=== PATIENT | male | born 1950 | race Caucasian/White ===

== ENCOUNTER 2016-04-26 16:02 | Inpatient (IN) ==
[2016-04-26] MEDS ORDERED: methylPREDNISolone 125 MG/2 ML VIAL IVP ONE (17:55)
[2016-04-26] MEDS: Ipratropium/Albuterol Neb 3 ML IH SCH ×3 (18:05→23:44)
[2016-04-26] MEDS ORDERED: Vancomycin 1,000 MG in D5% in Water 250 ML IVPB ONE (18:14)
[2016-04-26] MEDS ORDERED: Ondansetron 4 MG/2 ML VIAL IVP PRN (18:17)
[2016-04-26] MEDS ORDERED: Naloxone 0.4 MG/ML INJ IVP PRN (18:17)
[2016-04-26] MEDS ORDERED: *HR* LORazepam 0.5 MG TABLET PO PRN (18:19)
[2016-04-26] MEDS ORDERED: Ipratropium/Albuterol Neb 3 ML IH PRN (18:22)
--- NOTE | 2016-04-26 19:04 | Internal Med History&Physical ---
Date of Encounter: 04/26/16 Time of Encounter: 18:00 Assessment and Plan (1) Acute respiratory failure with hypercapnia Current visit: Yes Status: Acute History of stage IV COPD and CHF -Likely secondary to COPD exacerbation due to underlying HCAP -Started IV steroids and bronchodilators -CXR consistent with pulmonary edema/infiltrates, however no clinical signs of acute CHF exacerbation -continue bipap support -Last ABG prior to transfer: 7.39/52.3/92/31.7/97 -Repeat ABG as needed -Continue to monitor O2 sat, goal O2 sat:89-92% -consider pulmonary consultation if patient does not improve (2) Acute exacerbation of chronic obstructive pulmonary disease (COPD) Current visit: Yes Status: Acute -Likely secondary to underlying HCAP -continue IV steroids and bronchodilators -monitor O2 sat -Bipap as needed -O2 supplementation as needed -ABG as needed -Will repeat CXR -GI ppx due to high dose steroid therapy (3) HCAP (healthcare-associated pneumonia) Current visit: Yes Status: Acute -Given recent hospitalization, will treat as HCAP -f/u blood cultures -started Vancomycin and Zosyn -de-escalate therapy once patient clinically improves and as per blood culture reports -continue to monitor WBC (last WBC at the NH: 12.6 down from 21.0 on 04/25/16) -Tylenol 650mg PO q6h PRN fever (4) CHF (congestive heart failure) Current visit: Yes Status: Chronic Does not clinically appear to be in CHF Continue diuretic therapy as per home medications continue home medications closely monitor for signs of volume overload last 2D echo done in feb 2016: LVEF 60% with severely dilated right ventricle with moderately severe right ventricular hypokinesis Qualifiers: Congestive heart failure type: diastolic Congestive heart failure chronicity: chronic Qualified Code(s): I50.32 - Chronic diastolic (congestive ) heart failure (5) Hypertension Current visit: Yes Status: Chronic BP within acceptable range Will continue to monitor Hold Metoprolol at this time due to active wheezing, will start Hydralazine prn SBP>150 Qualifiers: Hypertension type: essential hypertension Qualified Code(s): I10 - Essential (primary) hypertension (6) Elevated troponin Current visit: Yes Status: Chronic Unlikely ACS and likely type II GA Will monitor TNI closely Patient has history of positive troponins continue home medications for CAD (7) CAD (coronary artery disease) Current visit: Yes Status: Chronic No signs of angina present at this time Continue home medications Qualifiers: Coronary Disease-Associated Artery/Lesion type: unspecified vessel or lesion type [place] vs. transplanted heart: [place] heart Associated angina: without angina Qualified Code(s): I25.10 - Atherosclerotic heart disease of [place] coronary artery without angina pectoris (8) DVT prophylaxis Current visit: Yes Status: Acute Lovenox SQ (9) Hypothyroidism Current visit: Yes Status: Chronic Continue home medications Qualifiers: Hypothyroidism type: unspecified Qualified Code(s): E03.9 - Hypothyroidism , unspecified Internal Medicine - H&P: HPI Chief complaint: transfer from NH for respiratory failure Admitted From: Intrahospital Transfer Plans for Post Hospital Care: Transfer [facility] History of present illness: Mr. Reeder is a 66 year old male with PMH of stage IV COPD, ASCVD with CHF, CAD s/p NSTEMI (one month ago) and stent placement, HTN, Richardson's esophagus, GERD, CVA who was transferred to the ER from NH for management of acute respiratory failure. Patient was noted to be in severe respiratory distress due to which he was initially taken to the [facility] earlier this morning. Patient was noted to have mild pulmonary edema and was treated with bipap support and IV Lasix. Patient was also noted to have elevated troponins with no new EKG changes and no chest pain. Patient does have a history of NSTEMI one month ago. During my evaluation , patient is saturating well on bipap however has expiratory wheezing with no air entry bilaterally. His last ABG from the NH showed PCO2: 72.7. He reports of having fevers, cough, and chills for the last few days. He gets short of breath with minimal conversation due to which majority of his information was obtained from the records. He denies any headache, chest pain, abd pain, n/v, fever, or chills at this time. He does complain of cough. Unable to get in touch with the POA (with Vijaya Reeder) however patient wishes to be full code. Of note, palliative care was consulted during patient's last hospitalization due to the severity of his lung disease. At that time patient did not wish to pursue hospice or palliative care. Social hx: Former smoker (quit May 2015) Past Med Surg Social Fam HX - Past Medical History Medical history: COPD, coronary artery disease, CVA, myocardial infarction Psychiatric history: no psych history - Past Surgical History Surgical History: angioplasty/stent, other - Social History Smoking Status: Former smoker Smokeless Tobacco Status: No Alcohol use: none Drug use: none - Family History Father Adopted: No Family Member Ethnicity: Non- Living Status: Hx Family Cardiac Disorders: Yes Hx Family Respiratory Disorders: Yes Hx Family Cancer: Yes Internal Medicine - H&P: Meds Aspirin 81 mg PO DAILY 12/12/14 [History] Clopidogrel [Plavix] 75 mg PO DAILY 12/12/14 [History] Cyanocobalamin (B-12) [Vitamin B12] 1,000 mcg PO DAILY #30 tablet 03/14/16 [Rx] Folic Acid 1 mg PO DAILY #30 tablet 03/14/16 [Rx] Levothyroxine [Synthroid] 50 mcg PO 0630 30 Days 03/14/16 [Rx] Acetaminophen [Tylenol] 650 mg PO Q6HR PRN 04/26/16 [History] Albuterol Sulfate [Albuterol Inhaler] 1 puff Q4HR PRN 04/26/16 [History] Ampicillin Sodium/Sulbactam Na [Ampicillin-Sulbactam 1.5 gm Vl] 1.5 gm IV Q6HR 04/26/16 [History] Chlorhexidine Gluconate [Peridex] 15 ml MM ACHS 04/26/16 [History] Enoxaparin [Lovenox] 40 mg SQ DAILY 04/26/16 [History] Famotidine [Pepcid] 20 mg PO BID 04/26/16 [History] Fluticasone Propionate Nasal [Flonase] 50 mcg NS BID 04/26/16 [History] Furosemide [Lasix] 20 mg PO DAILY 04/26/16 [History] Ipratropium [place] 15 ml NS BID 04/26/16 [History] Ipratropium Neb [Atrovent Neb] 0.5 mg IH Q4HR 04/26/16 [History] Isosorbide MONOnitrate [Isosorbide Mononitrate] 60 mg PO DAILY 04/26/16 [History ] LORazepam [Ativan] 0.5 mg PO BID 04/26/16 [History] LORazepam [Ativan] 0.5 mg PO HS PRN 04/26/16 [History] Levalbuterol Neb [Xopenex Neb] 1.25 mg IH Q4HR 04/26/16 [History] Lisinopril 2.5 mg PO DAILY 04/26/16 [History] Loratadine [Allergy Relief] 10 mg PO DAILY 04/26/16 [History] Metoprolol Succinate 50 mg PO DAILY 04/26/16 [History] Allergies Tetracycline Allergy (Verified 03/10/16 06:33) Hives codeine Adverse Reaction (Verified 03/10/16 06:33) Headache All Systems PM: A 10-system review of systems was performed and is negative for pertinent findings except as documented above in the HPI. - Constitutional Constitutional: as per HPI, chills, fever(s) - Constitutional Vitals: Temp Pulse Resp BP Pulse Ox 97.6 F 131 29 133/65 96 04/26/16 17:13 04/26/16 17:30 04/26/16 17:21 04/26/16 17:21 04/26/16 17:21 General appearance: Present: mild distress (respiratory distress), A&O X 3, underweight, answers questions appropriately - Head Head exam: Present: atraumatic, normocephalic - Eye Eye exam: Present: normal appearance, conjuntiva pink, sclera anicteric - Respiratory Respiratory exam: Present: accessory muscle use, wheezes (bilateral expiratory wheezing, decreased breath sounds diffusely ) - Cardiovascular Cardiovascular exam: Present: +S1, +S2, tachycardia. Absent: JVD - GI/Abdominal GI/Abdominal exam: Present: normal bowel sounds, soft. Absent: distended, tenderness - Extremities Exam Extremities exam: Present: warm, radial pulses palpable and symetrical. Absent : calf tenderness, pedal edema, tenderness - Neurological Exam Neurological exam: Present: alert, oriented X3 - Psychiatric Psychiatric exam: Present: normal affect, normal mood
[2016-04-26 19:29] LABS: Basophils % 0.2 %; Hematocrit 30.1 % (37.5-50.1); Hemoglobin 8.9 g/dL (12.9-16.9); Immature Granulocytes % 0.5 % (0-4); Immature Platelets 3.3 % (1.1-6.1); Lymphocytes # 0.2 K/mcL (0.6-4.6); Lymphocytes % 1.8 %; Mean Corpuscular HGB Conc 29.6 g/dL (31.6-35.5); Mean Corpuscular Hemoglobin 25.5 pg (28.0-33.3); Mean Corpuscular Volume 86.2 fL (83.0-100.0); Mean Platelet Volume 9.3 fL (9.4-12.4); Monocytes # 1.3 K/mcL (0.0-1.3); Monocytes % 9.8 %; Platelet Count 359 K/mcL (140-400); Red Blood Count 3.49 M/mcL (4.19-5.50); Red Cell Distribution Width 18.2 % (11.5-14.5); Segmented Neutrophils % 87.7 %
[2016-04-26 19:37] LABS: Neutrophils # 11.3 K/mcL (1.6-8.9)
[2016-04-26 19:39] LABS: Alanine Aminotransferase 21 Units/L (0-55); Albumin 2.7 g/dL (3.5-5.0); Albumin/Globulin Ratio 0.6 (1.1-2.2); Alkaline Phosphatase 77 Units/L (38-126); Aspartate Amino Transferase 21 Units/L (5-34); BUN/Creatinine Ratio 39 (6-26); Bilirubin,Total 0.3 mg/dL (0.2-1.2); Blood Urea Nitrogen 35 mg/dL (8-26); Calcium 10.6 mg/dL (8.6-10.8); Carbon Dioxide 25 mEq/L (19-29); Chloride 97 mEq/L (98-109); Globulin 4.9 g/dL (2.4-3.5); Glucose 111 mg/dL (70-99); Osmolality,Calculated 289 (280-300); Phosphorous 4.5 mg/dL (2.3-4.7); Potassium 5.3 mEq/L (3.5-4.5); Sodium 135 mEq/L (136-145); Total Protein 7.6 g/dL (6.0-8.3); eGFR For African Americans > 60 (> 60); eGFR For Non-African Americans > 60 (> 60)
[2016-04-26 19:56] LABS: Hypochromasia Present (Not Present); Platelet Estimate Normal (Normal)
[2016-04-26] MEDS ORDERED: Vancomycin 1,000 MG in D5% in Water 250 ML IVPB SCH (20:00)
[2016-04-26] MEDS: *HR* LORazepam 0.5 MG TABLET PO SCH (20:40)
[2016-04-26] MEDS: Chlorhexidine Rinse 15 ML MOUTHWASH MM SCH (20:40)
[2016-04-26] MEDS: Piperacillin/Tazobactam 3.375 GM in D5% in Water (Mini-Bag+) 100 ML IVPB SCH ×2 (20:40→22:45)
[2016-04-26] MEDS: Fluticasone Propionate Nasal 50 MCG/SPRAY BOTTLE NS SCH (20:41)
[2016-04-26 21:03] LABS: ABG HCO3 35.6 mEQ/L (21-27); ABG Oxygen Saturation 98 % (95-98); ABG PCO2 66 mmHg (35-45); ABG PH 7.34 pH Units (7.32-7.45); ABG PO2 112 mmHg (85-104); ABG TCO2 37.6 mEq/L (20-26)
[2016-04-26 21:06] LABS: Blood Gas FiO2 35 %
[2016-04-27] MEDS: methylPREDNISolone 125 MG/2 ML VIAL IVP SCH ×3 (04:15→16:55)
[2016-04-27] MEDS: Piperacillin/Tazobactam 3.375 GM in D5% in Water (Mini-Bag+) 100 ML IVPB SCH (04:15)
[2016-04-27] MEDS: Ipratropium/Albuterol Neb 3 ML IH SCH ×6 (04:47→23:32)
[2016-04-27 05:38] LABS: Alanine Aminotransferase 20 Units/L (0-55); Albumin 2.6 g/dL (3.5-5.0); Albumin/Globulin Ratio 0.5 (1.1-2.2); Alkaline Phosphatase 73 Units/L (38-126); Aspartate Amino Transferase 20 Units/L (5-34); BUN/Creatinine Ratio 43 (6-26); Bilirubin,Total 0.2 mg/dL (0.2-1.2); Blood Urea Nitrogen 38 mg/dL (8-26); Calcium 10.4 mg/dL (8.6-10.8); Carbon Dioxide 27 mEq/L (19-29); Chloride 98 mEq/L (98-109); Globulin 4.8 g/dL (2.4-3.5); Glucose 133 mg/dL (70-99); Magnesium 2.2 mg/dL (1.6-2.6); Osmolality,Calculated 293 (280-300); Phosphorous 4.5 mg/dL (2.3-4.7); Potassium 5.1 mEq/L (3.5-4.5); Sodium 136 mEq/L (136-145); Total Protein 7.4 g/dL (6.0-8.3); eGFR For African Americans > 60 (> 60); eGFR For Non-African Americans > 60 (> 60)
[2016-04-27 06:50] LABS: Hemoglobin 8.9 g/dL (12.9-16.9)
[2016-04-27 06:52] LABS: Hematocrit 30.7 % (37.5-50.1); Immature Platelets 2.9 % (1.1-6.1); Mean Corpuscular Hemoglobin 25.6 pg (28.0-33.3); Mean Corpuscular Volume 88.5 fL (83.0-100.0); Mean Platelet Volume 9.7 fL (9.4-12.4); Platelet Count 375 K/mcL (140-400); Red Blood Count 3.47 M/mcL (4.19-5.50); Red Cell Distribution Width 18.2 % (11.5-14.5)
[2016-04-27] MEDS: Isosorbide MONOnitrate (24 HR) 60 MG TAB.ER.24H PO SCH (08:20)
[2016-04-27] MEDS: Pantoprazole 40 MG VIAL IVP SCH (08:20)
[2016-04-27] MEDS: Chlorhexidine Rinse 15 ML MOUTHWASH MM SCH ×4 (08:20→19:49)
[2016-04-27] MEDS: Loratadine 10 MG TABLET PO SCH (08:21)
[2016-04-27] MEDS: Fluticasone Propionate Nasal 50 MCG/SPRAY BOTTLE NS SCH ×2 (08:21→19:49)
[2016-04-27] MEDS: Aspirin 81 MG TAB.CHEW PO SCH (08:21)
[2016-04-27] MEDS: Folic Acid 1 MG TABLET PO SCH (08:21)
[2016-04-27] MEDS: *HR* Enoxaparin 40 MG/0.4 ML SYRINGE SQ SCH (08:21)
[2016-04-27] MEDS: *HR* LORazepam 0.5 MG TABLET PO SCH ×2 (08:21→19:49)
[2016-04-27] MEDS: Cyanocobalamin (B-12) 1,000 MCG TABLET PO SCH (08:22)
[2016-04-27] MEDS ORDERED: Aminoglycoside Consult 1 EACH MC ONE (08:25)
[2016-04-27 08:35] LABS: Lymphocytes # 0.5 K/mcL (0.6-4.6); Monocytes # 0.8 K/mcL (0.0-1.3); Neutrophils # 11.5 K/mcL (1.6-8.9)
[2016-04-27 08:36] LABS: Platelet Estimate Normal (Normal); Toxic Vacuolation Present (Not Present)
[2016-04-27 08:37] LABS: Anisocytosis 1+ (Not Present); Dohle Bodies Present (Not Present)
[2016-04-27] MEDS ORDERED: Furosemide 20 MG TABLET PO SCH (09:00)
[2016-04-27] MEDS ORDERED: Furosemide 20 MG/2 ML VIAL IVP SCH (09:00)
--- NOTE | 2016-04-27 10:31 | Internal Med Progress Note ---
Date of Encounter: 04/27/16 Time of Encounter: 10:29 - Assessment and plan (1) Elevated troponin Current Visit: Yes Status: Chronic Assessment and plan: Patient was noted to have a troponin of 1.[address] [facility], currently trending down. This is most likely related to hypoxia and respiratory distress and acute COPD. Patient was recently admitted to our facility and had non-ST elevation [place], seen by cardiology and recommended medical management. Echocardiogram showed right ventricular dysfunction, possible cor pulmonale. Continue telemetry monitoring at this time, showing sinus tachycardia. Continue to trend troponins. Will consult cardiology as needed. (2) Acute exacerbation of chronic obstructive pulmonary disease (COPD) Current Visit: Yes Status: Acute Assessment and plan: Patient presents with acute exacerbation of stage IV COPD. Improved slightly since admission. Pulmonology consult appreciated. Increased dose of IV steroids. Continue inhaled corticosteroids, bronchodilators, supplemental oxygen with intermittent BiPAP support as needed. ABG shows elevated PCO2 of 66 with maintenance of PH. Patient has guarded prognosis due to terminal and progressive nature of COPD and he understands his current clinical situation. He wishes to be full code after understanding the risks and benefits. (3) CAD (coronary artery disease) Current Visit: Yes Status: Chronic Assessment and plan: Continue to trend troponins. Continue aspirin, statin. Beta ivan is held due to acute exacerbation of COPD. Qualifiers: Qualified Code(s): I25.10 - Atherosclerotic heart disease of [place] coronary artery without angina pectoris (4) CHF (congestive heart failure) Current Visit: Yes Status: Chronic Qualifiers: Qualified Code(s): I50.32 - Chronic diastolic (congestive) heart failure (5) Hypertension Current Visit: Yes Status: Chronic Qualifiers: Qualified Code(s): I10 - Essential (primary) hypertension (6) Hypothyroidism Current Visit: Yes Status: Chronic Qualifiers: Qualified Code(s): E03.9 - Hypothyroidism, unspecified - Subjective Interval history: Noted to have required continuous BiPAP support overnight and currently noted to be on BiPAP, and he was placed back on nasal cannula by me, tolerating well. Continues to have some shortness of breath with speaking, which he states is his baseline. Noted to have wet cough, unable to bring up any sputum. No fevers, chills, chest pain, dizziness. Discussed progressive nature of his severe COPD, he verbalized understanding but continues to wish to remain full code with the goal of returning home soon. He has been admitted yesterday from the [facility], to where he was discharged from our facility about a month back after being treated for non-ST elevation [place], CHF and COPD and C. difficile colitis. - Constitutional Vitals: Temp Pulse Resp BP Pulse Ox 98.5 F 127 16 137/74 98 04/27/16 09:23 04/27/16 09:23 04/27/16 09:23 04/27/16 04:29 04/27/16 09:23 General appearance: Present: cachectic, mild distress (respiratory distress), A& O X 3, underweight, answers questions appropriately - Head Head exam: Present: atraumatic, normocephalic - Neck Neck exam general surgery: Present: supple, trachea midline. Absent: lymphadenopathy - Respiratory Respiratory exam: Present: decreased breath sounds (Decreased air entry bilaterally). Absent: accessory muscle use, rales, rhonchi, wheezes - Cardiovascular Cardiovascular exam: Present: RRR, +S1, +S2, tachycardia. Absent: diastolic murmur, gallop, rubs, systolic murmur - GI/Abdominal GI/Abdominal exam: Present: normal bowel sounds, soft, no peritoneal signs. Absent: distended, tenderness - Extremities Exam Extremities exam: Present: full ROM, warm, radial pulses palpable and symetrical. Absent: calf tenderness, cyanotic, pedal edema - Neurological Exam Neurological exam: Present: CN II-XII intact, oriented X3, no focal deficits. Absent: pronater drift, facial droop, speech deficit - Skin Skin exam: Present: dry, intact Internal Medicine: Result - Labs CBC & Chem 7: 04/27/16 06:40 04/27/16 04:44 Labs: Short CBC 04/26/16 04/27/16 Range/Units 19:15 06:40 WBC 12.9 H 12.8 H (4.3-11.1) K/mcL Hgb 8.9 L 8.9 L (12.9-16.9) g/dL Hct 30.1 L 30.7 L (37.5-50.1) % Plt Count 359 375 (140-400) K/mcL Neutrophils # 11.3 H 11.5 H (1.6-8.9) K/mcL BMP 04/26/16 04/27/16 19:15 04:44 Sodium 135 L 136 Potassium 5.3 H 5.1 H Chloride 97 L 98 Carbon Dioxide 25 27 BUN 35 H 38 H Creatinine 0.90 0.89 Glucose 111 H 133 H Calcium 10.6 10.4 Cardiac Enzymes 04/26/16 Range/Units 19:15 Troponin I 0.09 H* (0-0.03) ng/mL Liver Function 04/26/16 04/27/16 Range/Units 19:15 04:44 Total Bilirubin 0.3 0.2 (0.2-1.2) mg/dL AST 21 20 (5-34) Units/L ALT 21 20 (0-55) Units/L Alkaline Phosphatase 77 73 (38-126) Units/L Albumin 2.7 L 2.6 L (3.5-5.0) g/dL - ABG Interpretation ABG results: ABG ABG pH 7.34 pH Units (7.32-7.45) 04/26/16 20:44 ABG pCO2 66 mmHg (35-45) H 04/26/16 20:44 ABG pO2 112 mmHg (85-104) H 04/26/16 20:44 ABG O2 Saturation 98 % (95-98) 04/26/16 20:44 - Impressions Impressions Chest X-Ray 04/26/16 18:42 IMPRESSION: Re-demonstration of emphysema, congestion, and mild interstitial lung disease. No evidence of CHF or pneumonia. D/ / 04/26/2016 19:10:21 Marisa Kemp MD / [email or web address] Interpreting Provider: Marisa Kemp MD Consult Discharge Plan - Plan Referrals: [facility] [Primary Care Provider] -
--- NOTE | 2016-04-27 11:07 | Pulmonology Consult Note ---
<Vinnie Nuñez - Last Filed: 04/27/16 11:35> Date of Encounter: 04/27/16 Time of Encounter: 10:54 Assessment and Plan (1) Acute exacerbation of chronic obstructive pulmonary disease (COPD) Current Visit: Yes Status: Acute Patient with history of Stage IV COPD on continuous 2L oxygen and CHF with recent echo Feb 2016 presents via transfer from [place] rehab facility with increased shortness of breath, cough, and fever of 3 days duration. ABG prior to transfer revealed pH 7.39, pCO2 52.3, pO2 92, HCO3 31.7, O2 sat 97 Repeat ABG on bipap revealed pH 7.34, pCO2 66, [id number], HCO3 35.6, O2 sat 98 Patient has been receiving antibiotics, steroids, and was on bipap overnight; however has been switched since this morning to 3L nasal cannula and satting 96- 98%. Lung exam reveals diminished breath sounds, expiratory and inspiratory wheezing bilaterally, rhonchi throughout, and wet cough. Patient's status has improved since admission. Continue monitoring O2 sat with titration of supplemental O2 to greater than 88% Continue steroid treatment and breathing treatments scheduled Continue per Hospitalist plan. (2) Acute respiratory failure with hypercapnia Current Visit: Yes Status: Acute Continue per plan in assessment above. (3) HCAP (healthcare-associated pneumonia) Current Visit: Yes Status: Acute History of recent hospitalization and stay at [place] rehab facility Continue per plan of hospitalist with antibiotics and monitoring labs. (4) CHF (congestive heart failure) Current Visit: Yes Status: Chronic Continue per hospitalist plan. Qualifiers: Congestive heart failure type: diastolic Congestive heart failure chronicity: chronic Qualified Code(s): I50.32 - Chronic diastolic (congestive ) heart failure (5) Goals of care, counseling/discussion Current Visit: Yes Status: Acute Discussed with patient the differences between various code status. Patient understands that in the event he has respiratory arrest or respiratory failure unresponsive to noninvasive management including Bipap, he would need to be intubated an put on a ventilator. I informed the patient that with his history of Stage IV COPD, intubation may be terminal meaning that he may not be able to come off of the ventilator/extubated. If this situation occurs, his DPOA, reported to be his , would have to make a decision as to continuance of care. Patient is AxO to person place time and situation and is aware of possible complications as well as the various code statuses. At this time the patient would like everything done in the event of respiratory and cardiac arrest or failure including intubation. Continue with FULL CODE status. Confirmed DPOA information with nurse. History of Present Illness Consult date: 04/27/16 Requesting physician: Tara Mar Reason for consult: COPD, other (confirm dx of end stage COPD) Chief complaint: Acute Resp Failure, Acute exacerbation of COPD History of present illness: Mr. Reeder is a 66 year old male with hisory of stage IV COPD on continuous 2L oxygen, CHF, CAD with stent placement, hypertension, gerd, and history of CVA who presented to [facility] ED via transfer from [place] rehab for management of acute respiratory failure. Patient reports he has had fevers, a worsening of shortness of breath, and wet cough for the past 3 days. Denies increased sputum production. CXR revealed hyperinflation with COPD, emphsema, congestion , and mild interstitial lung disease without evidence of CHF, pneumonia, or pulmonary edema. Patient was also noted to have elevated troponin of 0.09 with no new EKG changes, which may be consistent with reported history of NSTEMI one month ago. ABG from the [place] revealed pCO2 of 72.7. Repeat ABG after bipap revealed pH 7.34, pCO2 of 66, pO2 112, and HCO3 of 35.6. Patient has received doses of zosyn, vancomycin, and steroids throughout hospital stay. Patient currently denies pain, sweats, headaches, lightheadedness, dizziness, changes in vision or hearing, nausea, vomiting, chest pain, abdominal pain, changes in bowels or bladder, weakness, or loss of sensation. Patient would like to be FULL CODE with intubation. Reports DPOA is his , confirmed with nurse regarding info. Pulmonary was consulted to confirm diagnosis of end stage IV COPD. Past Med Surg Social Fam HX - Past Medical History Medical history: CHF, COPD, coronary artery disease, CVA, GERD, hyperlipidemia, hypertension, myocardial infarction Psychiatric history: no psych history - Past Surgical History Surgical History: angioplasty/stent - Social History Smoking Status: Former smoker Smokeless Tobacco Status: No Alcohol use: none Drug use: none Occupational status: retired, disabled Current living situation: Other Activity Level: Uses cane/walker, Bed bound, Mostly sedentary Recent Out of Country Travel Within the Last 8 Weeks: No Exposure or Possible Exposure to Illness During Travel: No - Family History Father Adopted: No Family Member Ethnicity: Non- Living Status: Hx Family Cardiac Disorders: Yes Hx Family Respiratory Disorders: Yes Hx Family Cancer: Yes Medications and Allergies Aspirin 81 mg PO DAILY 12/12/14 [History] Clopidogrel [Plavix] 75 mg PO DAILY 12/12/14 [History] Cyanocobalamin (B-12) [Vitamin B12] 1,000 mcg PO DAILY #30 tablet 03/14/16 [Rx] Folic Acid 1 mg PO DAILY #30 tablet 03/14/16 [Rx] Acetaminophen [Tylenol] 325 mg PO Q4H PRN 04/26/16 [History] Acetaminophen [Tylenol] 650 mg PO Q6HR PRN 04/26/16 [History] Albuterol Neb [Proventil Neb] 2.5 mg IH QID PRN 04/26/16 [History] Budesonide/Formoterol 160/4.5 [Symbicort 160/4.5] 2 puff IH BIDR 04/26/16 [ History] Cetirizine HCl [Zyrtec] 10 mg PO DAILY 04/26/16 [History] Famotidine [Pepcid] 20 mg PO BID 04/26/16 [History] Fluticasone Propionate Nasal [Flonase] 50 mcg NS BID 04/26/16 [History] Furosemide [Lasix] 30 mg PO DAILY 04/26/16 [History] Ipratropium [place] 15 ml NS BID 04/26/16 [History] Ipratropium/Albuterol Neb [Duoneb] 3 ml IH Q6H PRN 04/26/16 [History] Ipratropium/Albuterol Sulfate [Combivent Respimat Inhal [place]] 1 puff IH Q4H PRN 04/26/16 [History] Isosorbide MONOnitrate (24 HR) [Imdur] 60 mg PO DAILY 04/26/16 [History] LORazepam [Ativan] 0.5 mg PO BID 04/26/16 [History] LORazepam [Ativan] 0.5 mg PO HS PRN 04/26/16 [History] Lisinopril 2.5 mg PO DAILY 04/26/16 [History] Loratadine [Allergy Relief] 10 mg PO DAILY 04/26/16 [History] Metoprolol Succinate 50 mg PO DAILY 04/26/16 [History] Phenylephrine HCl [Shayy-Med] 1 each RC HS PRN 04/26/16 [History] Ranitidine HCl [Zantac] 150 mg PO BID 04/26/16 [History] Simvastatin [Zocor] 40 mg PO HS 04/26/16 [History] Allergies Tetracycline Allergy (Verified 03/10/16 06:33) Hives codeine Adverse Reaction (Verified 03/10/16 06:33) Headache All Systems: A 10-system review of systems was performed and is negative for pertinent findings except as documented above in the HPI. - Constitutional Constitutional: as per HPI, chills, fever(s), no night sweats, no weakness - EENT Eyes: as per HPI Ears: as per HPI Nose, mouth and throat: as per HPI, no dizziness, no headache(s), no neck pain, no sore throat - Cardiovascular Cardiovascular: as per HPI, dyspnea, dyspnea on exertion, no chest pain, no edema, no lightheadedness, no palpitations, no pedal edema - Respiratory Respiratory: as per HPI, cough, dyspnea, dyspnea on exertion, wheezing, chest congestion, no pain on inspirtation, no excessive phlegm production, no change in phlegm color, no pain with cough - Gastrointestinal Gastrointestinal: as per HPI, no abdominal pain, no diarrhea, no heartburn, no nausea, no vomiting - Genitourinary Genitourinary: as per HPI, no dysuria, no flank pain - Musculoskeletal Musculoskeletal: as per HPI, no weakness, no neck pain, no tingling - Integumentary Integumentary: as per HPI - Neurological Neurological: as per HPI, no dizziness, no headache(s), no numbness, no weakness - Psychiatric Psychiatric: as per HPI Physical Examination Vital Signs: Vital Signs, Last 4 Hours Temp Pulse Resp Pulse Ox 04/27/16 09:23 98.5 F 127 16 98 04/27/16 08:00 116 04/27/16 07:45 22 100 General appearance: alert, appears uncomfortable, other (mild respirator distress, on nasal cannula) Eyes: nonicteric ENT: oropharynx moist Neck: supple, no lymphadenopathy, no JVD Effort: mildly labored, other (conversational dyspnea) Inspection: normal Auscultation: bilateral: diminished breath sounds, wheezes, rhonchi Cardiovascular: other (tachycardic, s1, s2 normal, no murmurs noted) Gastrointestinal: normoactive bowel sounds, soft, non-tender, non-distended Integumentary: normal Extremities: no cyanosis, no edema, pink and warm, pulses normal Musculoskeletal: no deformities Gait: normal posture normal mental status (AO x 4), non-focal exam, pupils equal and round, CN II- XII normal, motor strength normal and symmetric mood appropriate, affect normal Results - Laboratory Findings CBC and BMP: 04/27/16 06:40 04/27/16 04:44 ABG ABG pH 7.34 pH Units (7.32-7.45) 04/26/16 20:44 ABG pCO2 66 mmHg (35-45) H 04/26/16 20:44 ABG pO2 112 mmHg (85-104) H 04/26/16 20:44 ABG O2 Saturation 98 % (95-98) 04/26/16 20:44 Abnormal lab findings: Abnormal lab results WBC 12.8 K/mcL (4.3-11.1) H 04/27/16 06:40 RBC 3.47 M/mcL (4.19-5.50) L 04/27/16 06:40 Hgb 8.9 g/dL (12.9-16.9) L 04/27/16 06:40 Hct 30.7 % (37.5-50.1) L 04/27/16 06:40 MCH 25.6 pg (28.0-33.3) L 04/27/16 06:40 MCHC 29.0 g/dL (31.6-35.5) L 04/27/16 06:40 RDW 18.2 % (11.5-14.5) H 04/27/16 06:40 Band Neutrophils % 52.0 % (0-4) H 04/27/16 06:40 Neutrophils # 11.5 K/mcL (1.6-8.9) H 04/27/16 06:40 Lymphocytes # 0.5 K/mcL (0.6-4.6) L 04/27/16 06:40 Toxic Vacuolation Present (Not Present) A 04/27/16 06:40 Dohle Bodies Present (Not Present) A 04/27/16 06:40 Hypochromasia Present (Not Present) A 04/26/16 19:15 Anisocytosis 1+ (Not Present) A 04/27/16 06:40 ABG pCO2 66 mmHg (35-45) H 04/26/16 20:44 ABG pO2 112 mmHg (85-104) H 04/26/16 20:44 ABG HCO3 35.6 mEQ/L (21-27) H 04/26/16 20:44 ABG Total CO2 37.6 mEq/L (20-26) H 04/26/16 20:44 ABG Base Excess 8.0 mEq/L (-2.0 to 3.0) H 04/26/16 20:44 Potassium 5.1 mEq/L (3.5-4.5) H 04/27/16 04:44 BUN 38 mg/dL (8-26) H 04/27/16 04:44 BUN/Creatinine Ratio 43 (6-26) H 04/27/16 04:44 Glucose 133 mg/dL (70-99) H 04/27/16 04:44 Troponin I 0.09 ng/mL (0-0.03) H* 04/26/16 19:15 Albumin 2.6 g/dL (3.5-5.0) L 04/27/16 04:44 Globulin 4.8 g/dL (2.4-3.5) H 04/27/16 04:44 Albumin/Globulin Ratio 0.5 (1.1-2.2) L 04/27/16 04:44 - Clinical Findings Intake & Output: Intake & Output 04/26/16 04/27/16 04/27/16 23:59 07:59 15:59 Intake Total 120 / 120 470 / 470 480 / 480 Output Total 350 / 350 650 / 650 Balance -230 / -230 -180 / -180 480 / 480 Weight 51.2 kg 50.8 kg 51.6 kg Consult Discharge Plan - Plan [facility]errals: [facility] Care Provider[facility] - <Judith Matias - Last Filed: 04/27/16 16:25> Date of Encounter: 04/27/16 All Systems: A 10-system review of systems was performed and is negative for pertinent findings except as documented above in the HPI. Physical Examination Vital Signs: Vital Signs, Last 4 Hours Temp Pulse Resp BP Pulse Ox 04/27/16 15:55 98.2 F 117 18 93/55 117 H 04/27/16 15:00 124 24 93/55 98 Results - Laboratory Findings CBC and BMP: 04/27/16 06:40 04/27/16 04:44 ABG ABG pH 7.34 pH Units (7.32-7.45) 04/26/16 20:44 ABG pCO2 66 mmHg (35-45) H 04/26/16 20:44 ABG pO2 112 mmHg (85-104) H 04/26/16 20:44 ABG O2 Saturation 98 % (95-98) 04/26/16 20:44 Abnormal lab findings: Abnormal lab results WBC 12.8 K/mcL (4.3-11.1) H 04/27/16 06:40 RBC 3.47 M/mcL (4.19-5.50) L 04/27/16 06:40 Hgb 8.9 g/dL (12.9-16.9) L 04/27/16 06:40 Hct 30.7 % (37.5-50.1) L 04/27/16 06:40 MCH 25.6 pg (28.0-33.3) L 04/27/16 06:40 MCHC 29.0 g/dL (31.6-35.5) L 04/27/16 06:40 RDW 18.2 % (11.5-14.5) H 04/27/16 06:40 Band Neutrophils % 52.0 % (0-4) H 04/27/16 06:40 Neutrophils # 11.5 K/mcL (1.6-8.9) H 04/27/16 06:40 Lymphocytes # 0.5 K/mcL (0.6-4.6) L 04/27/16 06:40 Toxic Vacuolation Present (Not Present) A 04/27/16 06:40 Dohle Bodies Present (Not Present) A 04/27/16 06:40 Hypochromasia Present (Not Present) A 04/26/16 19:15 Anisocytosis 1+ (Not Present) A 04/27/16 06:40 ABG pCO2 66 mmHg (35-45) H 04/26/16 20:44 ABG pO2 112 mmHg (85-104) H 04/26/16 20:44 ABG HCO3 35.6 mEQ/L (21-27) H 04/26/16 20:44 ABG Total CO2 37.6 mEq/L (20-26) H 04/26/16 20:44 ABG Base Excess 8.0 mEq/L (-2.0 to 3.0) H 04/26/16 20:44 Potassium 5.1 mEq/L (3.5-4.5) H 04/27/16 04:44 BUN 38 mg/dL (8-26) H 04/27/16 04:44 BUN/Creatinine Ratio 43 (6-26) H 04/27/16 04:44 Glucose 133 mg/dL (70-99) H 04/27/16 04:44 Troponin I 0.10 ng/mL (0-0.03) H* 04/27/16 12:50 Albumin 2.6 g/dL (3.5-5.0) L 04/27/16 04:44 Globulin 4.8 g/dL (2.4-3.5) H 04/27/16 04:44 Albumin/Globulin Ratio 0.5 (1.1-2.2) L 04/27/16 04:44 - Clinical Findings Intake & Output: Intake & Output 04/27/16 04/27/16 04/27/16 07:59 15:59 23:59 Intake Total 470 / 470 480 / 480 Output Total 650 / 650 Balance -180 / -180 480 / 480 Weight 50.8 kg 51.6 kg - Attending Attestation I examined this patient and my medical decision-making was reviewed with the DELIVERY TABLE FEEDER/PA/Advanced Practice Nurse/Resident Physician. I agree with the documented findings, disposition and treatment plan as described except to the extent set forth below. Patient seen and examined. Labs, radiology, chart personally reviewed. 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 I have told him prognosis is very poor and his age is not appropriate for a referral to lung transplant, if he recovers from this and been discharged. Patient is using accessory muscles and diminished breath sounds. Patient's on appropriate treatment and I will increase a systemic steroid and add Symbicort and told him to think about palliative care due to poor prognosis. Agree with NIV. I've explained to him, if he needs invasive mechanical ventilation, it will be very difficult to get him off. Thank you for the consult and discussed plan of care with primary team.
[2016-04-27] MEDS: Acetylcysteine 10% 2 ML INHSOL IH SCH ×3 (11:19→19:46)
[2016-04-27] MEDS ORDERED: Piperacillin/Tazobactam 3.375 GM in D5% in Water (Mini-Bag+) 100 ML IVPB SCH (12:00)
[2016-04-27] MEDS: Azithromycin 250 MG TABLET PO SCH (13:08)
[2016-04-27] MEDS ORDERED: Vancomycin 1,000 MG in D5% in Water 250 ML IVPB SCH (14:00)
[2016-04-27] MEDS: Budesonide/Formoterol 160/4.5 MDI IH SCH ×2 (16:34→19:47)
[2016-04-28] MEDS: methylPREDNISolone 125 MG/2 ML VIAL IVP SCH ×5 (00:08→23:50)
[2016-04-28] MEDS ORDERED: 0.9 % Sodium Chloride 500 ML ONE (03:44)
[2016-04-28] MEDS ORDERED: 0.9 % Sodium Chloride 500 ML IVC ONE (03:54)
[2016-04-28] MEDS: Ipratropium/Albuterol Neb 3 ML IH SCH ×6 (04:28→23:44)
[2016-04-28] MEDS: Acetylcysteine 10% 2 ML INHSOL IH SCH ×4 (04:28→20:06)
[2016-04-28] MEDS: Budesonide/Formoterol 160/4.5 MDI IH SCH ×2 (08:08→20:07)
--- NOTE | 2016-04-28 08:10 | Pulmonology Progress Note ---
<Vinnie Nuñez - Last Filed: 04/28/16 08:07> Date of Encounter: 04/28/16 Time of Encounter: 08:08 Assessment and Plan (1) Acute exacerbation of chronic obstructive pulmonary disease (COPD) Current Visit: Yes Status: Acute Patient with Acute exacerbation of COPD. Patient improved from yesterday, continues to maintain good saturation between 93-98% on 2L nasal cannula ( baseline home oxygen requirement). Continue with solumedrol 80mg q6h, duonebs q4h, symbicort bid, and azithromycin. (2) Acute respiratory failure with hypercapnia Current Visit: Yes Status: Acute Continue per plan in assessment above. (3) HCAP (healthcare-associated pneumonia) Current Visit: Yes Status: Acute History of recent hospitalization and stay at [place] rehab facility Vancomycin and zosyn discontinued d3. Continue per hospitalist plan. (4) CHF (congestive heart failure) Current Visit: Yes Status: Chronic No acute exacerbation. Continue per hospitalist plan. (5) Goals of care, counseling/discussion Current Visit: Yes Status: Acute Discussed with patient yesterday about palliative care due to poor prognosis. Patient aware. Subjective Principal diagnosis: Acute exacerbation of COPD Interval history: Patient reports doing better overnight. Reports some shortness of breath improved from yesterday, comfortable on bipap, and satting between 93-98% on 2L nasal cannula, and cough improved. Patient denies fevers, chills, sweats, headaches, dizziness, chest pain, abdominal pain, changes in bowels or bladder, weakness, or loss of sensation. Overnight patient developed some hypotension. Night hospitalist held lasix and gave fluid bolus. Patient's vitals have been improved and stable since. Objective PUL Vital signs: Last Vital Signs Temp 98.1 F 04/28/16 07:35 Pulse 125 04/28/16 07:35 Resp 20 04/28/16 07:35 BP 112/60 04/28/16 07:35 Pulse Ox 94 L 04/28/16 07:35 General appearance: no acute distress, alert, other (mild conversational dyspnea ) Eyes: nonicteric ENT: oropharynx moist Neck: supple, no lymphadenopathy, no JVD Effort: mildly labored Auscultation: bilateral: diminished breath sounds, wheezes, other (wet cough) Cardiovascular: other (tachycardia, s1/s2 normal, no murmurs) Gastrointestinal: normoactive bowel sounds, soft, tender (inoluntary guarding with deep palpation of border beween RUQ and RLQ. No skin changes, no hernia visible or palpated.), non-distended Integumentary: normal Extremities: no cyanosis, no edema, pink and warm, pulses normal Musculoskeletal: no deformities Gait: normal posture normal mental status (AxO x4), non-focal exam, pupils equal and round, CN II- XII normal, motor strength normal and symmetric mood appropriate, affect normal Results - Laboratory Findings CBC and BMP: 04/27/16 06:40 04/27/16 04:44 ABG ABG pH 7.34 pH Units (7.32-7.45) 04/26/16 20:44 ABG pCO2 66 mmHg (35-45) H 04/26/16 20:44 ABG pO2 112 mmHg (85-104) H 04/26/16 20:44 ABG O2 Saturation 98 % (95-98) 04/26/16 20:44 Abnormal lab findings: Abnormal lab results WBC 12.8 K/mcL (4.3-11.1) H 04/27/16 06:40 RBC 3.47 M/mcL (4.19-5.50) L 04/27/16 06:40 Hgb 8.9 g/dL (12.9-16.9) L 04/27/16 06:40 Hct 30.7 % (37.5-50.1) L 04/27/16 06:40 MCH 25.6 pg (28.0-33.3) L 04/27/16 06:40 MCHC 29.0 g/dL (31.6-35.5) L 04/27/16 06:40 RDW 18.2 % (11.5-14.5) H 04/27/16 06:40 Band Neutrophils % 52.0 % (0-4) H 04/27/16 06:40 Neutrophils # 11.5 K/mcL (1.6-8.9) H 04/27/16 06:40 Lymphocytes # 0.5 K/mcL (0.6-4.6) L 04/27/16 06:40 Toxic Vacuolation Present (Not Present) A 04/27/16 06:40 Dohle Bodies Present (Not Present) A 04/27/16 06:40 Hypochromasia Present (Not Present) A 04/26/16 19:15 Anisocytosis 1+ (Not Present) A 04/27/16 06:40 ABG pCO2 66 mmHg (35-45) H 04/26/16 20:44 ABG pO2 112 mmHg (85-104) H 04/26/16 20:44 ABG HCO3 35.6 mEQ/L (21-27) H 04/26/16 20:44 ABG Total CO2 37.6 mEq/L (20-26) H 04/26/16 20:44 ABG Base Excess 8.0 mEq/L (-2.0 to 3.0) H 04/26/16 20:44 Potassium 5.1 mEq/L (3.5-4.5) H 04/27/16 04:44 BUN 38 mg/dL (8-26) H 04/27/16 04:44 BUN/Creatinine Ratio 43 (6-26) H 04/27/16 04:44 Glucose 133 mg/dL (70-99) H 04/27/16 04:44 Troponin I 0.08 ng/mL (0-0.03) H* 04/27/16 22:48 Albumin 2.6 g/dL (3.5-5.0) L 04/27/16 04:44 Globulin 4.8 g/dL (2.4-3.5) H 04/27/16 04:44 Albumin/Globulin Ratio 0.5 (1.1-2.2) L 04/27/16 04:44 - Microbiology Findings Microbiology Findings: Microbiology, Last 48 Hours 04/26/16 19:37 Blood Culture - Preliminary Peripheral Venipuncture No growth. 04/26/16 19:15 Blood Culture - Preliminary Peripheral Venipuncture No growth. - Clinical Findings Intake & Output: Intake & Output 04/27/16 04/28/16 04/28/16 23:59 07:59 15:59 Intake Total 360 / 360 Output Total 500 / 500 675 / 675 Balance -140 / -140 -675 / -675 Weight 52.3 kg Consult Discharge Plan - Plan [facility]errals: [facility] [Primary Care Provider] - <Judith Matias - Last Filed: 04/28/16 13:07> Date of Encounter: 04/28/16 Objective PUL Vital signs: Last Vital Signs Temp 98.4 F 04/28/16 12:07 Pulse 126 04/28/16 12:07 Resp 24 04/28/16 12:07 BP 107/64 04/28/16 12:07 Pulse Ox 97 04/28/16 12:07 Results - Laboratory Findings CBC and BMP: 04/27/16 06:40 04/27/16 04:44 ABG ABG pH 7.34 pH Units (7.32-7.45) 04/26/16 20:44 ABG pCO2 66 mmHg (35-45) H 04/26/16 20:44 ABG pO2 112 mmHg (85-104) H 04/26/16 20:44 ABG O2 Saturation 98 % (95-98) 04/26/16 20:44 Abnormal lab findings: Abnormal lab results WBC 12.8 K/mcL (4.3-11.1) H 04/27/16 06:40 RBC 3.47 M/mcL (4.19-5.50) L 04/27/16 06:40 Hgb 8.9 g/dL (12.9-16.9) L 04/27/16 06:40 Hct 30.7 % (37.5-50.1) L 04/27/16 06:40 MCH 25.6 pg (28.0-33.3) L 04/27/16 06:40 MCHC 29.0 g/dL (31.6-35.5) L 04/27/16 06:40 RDW 18.2 % (11.5-14.5) H 04/27/16 06:40 Band Neutrophils % 52.0 % (0-4) H 04/27/16 06:40 Neutrophils # 11.5 K/mcL (1.6-8.9) H 04/27/16 06:40 Lymphocytes # 0.5 K/mcL (0.6-4.6) L 04/27/16 06:40 Toxic Vacuolation Present (Not Present) A 04/27/16 06:40 Dohle Bodies Present (Not Present) A 04/27/16 06:40 Hypochromasia Present (Not Present) A 04/26/16 19:15 Anisocytosis 1+ (Not Present) A 04/27/16 06:40 ABG pCO2 66 mmHg (35-45) H 04/26/16 20:44 ABG pO2 112 mmHg (85-104) H 04/26/16 20:44 ABG HCO3 35.6 mEQ/L (21-27) H 04/26/16 20:44 ABG Total CO2 37.6 mEq/L (20-26) H 04/26/16 20:44 ABG Base Excess 8.0 mEq/L (-2.0 to 3.0) H 04/26/16 20:44 Potassium 5.1 mEq/L (3.5-4.5) H 04/27/16 04:44 BUN 38 mg/dL (8-26) H 04/27/16 04:44 BUN/Creatinine Ratio 43 (6-26) H 04/27/16 04:44 Glucose 133 mg/dL (70-99) H 04/27/16 04:44 Troponin I 0.08 ng/mL (0-0.03) H* 04/27/16 22:48 Albumin 2.6 g/dL (3.5-5.0) L 04/27/16 04:44 Globulin 4.8 g/dL (2.4-3.5) H 04/27/16 04:44 Albumin/Globulin Ratio 0.5 (1.1-2.2) L 04/27/16 04:44 - Microbiology Findings Microbiology Findings: Microbiology, Last 48 Hours 04/26/16 19:37 Blood Culture - Preliminary Peripheral Venipuncture No growth. 04/26/16 19:15 Blood Culture - Preliminary Peripheral Venipuncture No growth. - Clinical Findings Intake & Output: Intake & Output 04/27/16 04/28/16 04/28/16 23:59 07:59 15:59 Intake Total 360 / 360 240 / 240 Output Total 500 / 500 675 / 675 325 / 325 Balance -140 / -140 -675 / -675 -85 / -85 Weight 52.3 kg - Attending Attestation I examined this patient and my medical decision-making was reviewed with the GUNSMITH APPRENTICE/PA/Advanced Practice Nurse/Resident Physician. I agree with the documented findings, disposition and treatment plan as described except to the extent set forth below. Patient seen and examined. Labs, radiology, chart personally reviewed. 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 If remain stable can change to oral prednisone in next 24 hours. Continue current inhalers. Cardiovascular: stable Physical therapy would be very helpful.
[2016-04-28] MEDS: Folic Acid 1 MG TABLET PO SCH (08:27)
[2016-04-28] MEDS: Isosorbide MONOnitrate (24 HR) 60 MG TAB.ER.24H PO SCH (08:27)
[2016-04-28] MEDS: Azithromycin 250 MG TABLET PO SCH (08:27)
[2016-04-28] MEDS: Cyanocobalamin (B-12) 1,000 MCG TABLET PO SCH (08:27)
[2016-04-28] MEDS: Loratadine 10 MG TABLET PO SCH (08:27)
[2016-04-28] MEDS: *HR* LORazepam 0.5 MG TABLET PO SCH ×2 (08:27→20:44)
[2016-04-28] MEDS: Aspirin 81 MG TAB.CHEW PO SCH (08:27)
[2016-04-28] MEDS: Fluticasone Propionate Nasal 50 MCG/SPRAY BOTTLE NS SCH ×2 (08:28→20:45)
[2016-04-28] MEDS: *HR* Enoxaparin 40 MG/0.4 ML SYRINGE SQ SCH (08:28)
[2016-04-28] MEDS: Pantoprazole 40 MG VIAL IVP SCH (08:28)
[2016-04-28] MEDS: Chlorhexidine Rinse 15 ML MOUTHWASH MM SCH ×5 (08:29→20:44)
--- NOTE | 2016-04-28 10:47 | Internal Med Progress Note ---
Date of Encounter: 04/28/16 Time of Encounter: 10:45 - Assessment and plan (1) Elevated troponin Current Visit: Yes Status: Chronic Assessment and plan: Patient was noted to have a troponin of 1.25 at the [facility], currently trending down. This is most likely related to hypoxia and respiratory distress and acute COPD. Patient was recently admitted to our facility and had non-ST elevation MA, seen by cardiology and recommended medical management. Echocardiogram showed right ventricular dysfunction, possible cor pulmonale. Continue telemetry monitoring at this time, showing sinus tachycardia. Continue to trend troponins, currently trending down. Patient continues to have tachycardia. We will consult cardiology. (2) Acute exacerbation of chronic obstructive pulmonary disease (COPD) Current Visit: Yes Status: Acute Assessment and plan: Patient presents with acute exacerbation of stage IV COPD. improving slowly. Pulmonology consult appreciated. Continue IV steroids, empiric macrolide antibiotic. Continue inhaled corticosteroids, bronchodilators, supplemental oxygen with intermittent BiPAP support as needed. ABG shows elevated PCO2 of 66 with maintenance of PH. Patient has guarded prognosis due to terminal and progressive nature of COPD and he understands his current clinical situation. He wishes to be full code after understanding the risks and benefits. (3) CAD (coronary artery disease) Current Visit: Yes Status: Chronic Assessment and plan: Continue to trend troponins. Continue aspirin, statin. Beta ivan is held due to acute exacerbation of COPD. Qualifiers: Qualified Code(s): I25.10 - Atherosclerotic heart disease of [place] coronary artery without angina pectoris (4) CHF (congestive heart failure) Current Visit: Yes Status: Chronic Qualifiers: Qualified Code(s): I50.32 - Chronic diastolic (congestive) heart failure (5) Hypertension Current Visit: Yes Status: Chronic Qualifiers: Qualified Code(s): I10 - Essential (primary) hypertension (6) Hypothyroidism Current Visit: Yes Status: Chronic Qualifiers: Qualified Code(s): E03.9 - Hypothyroidism, unspecified - Subjective Interval history: Appears better today, improving oxygen requirements. Has been on BiPAP overnight. Continues to have shortness of breath upon speaking, which is probably his baseline. No chest pain, dizziness, abdominal pain, nausea or vomiting. - Constitutional Vitals: Temp Pulse Resp BP Pulse Ox 98.1 F 121 18 108/55 94 L 04/28/16 07:35 04/28/16 10:42 04/28/16 08:10 04/28/16 10:42 04/28/16 08:10 General appearance: Present: cachectic, mild distress (respiratory distress), A& O X 3, underweight, answers questions appropriately - Respiratory Respiratory exam: Present: decreased breath sounds (Decreased air entry bilaterally), wheezes (Bilateral posterior intermittent wheezing). Absent: accessory muscle use, rales, rhonchi - Cardiovascular Cardiovascular exam: Present: RRR, +S1, +S2, tachycardia. Absent: diastolic murmur, gallop, rubs, systolic murmur - GI/Abdominal GI/Abdominal exam: Present: normal bowel sounds, soft, no peritoneal signs. Absent: distended, tenderness - Extremities Exam Extremities exam: Present: full ROM, warm, radial pulses palpable and symetrical. Absent: calf tenderness, cyanotic, pedal edema Internal Medicine: Result - Labs CBC & Chem 7: 04/27/16 06:40 04/27/16 04:44 Labs: Cardiac Enzymes 04/27/16 04/27/16 04/27/16 Range/Units 12:50 16:30 22:48 Troponin I 0.10 H* 0.09 H* 0.08 H* (0-0.03) ng/mL - ABG Interpretation ABG results: ABG ABG pH 7.34 pH Units (7.32-7.45) 04/26/16 20:44 ABG pCO2 66 mmHg (35-45) H 04/26/16 20:44 ABG pO2 112 mmHg (85-104) H 04/26/16 20:44 ABG O2 Saturation 98 % (95-98) 04/26/16 20:44 Consult Discharge Plan - Plan [facility] Care Provider[facility] -
[2016-04-29] MEDS: Acetylcysteine 10% 2 ML INHSOL IH SCH ×4 (04:08→20:22)
[2016-04-29] MEDS: Ipratropium/Albuterol Neb 3 ML IH SCH ×5 (04:08→20:22)
[2016-04-29] MEDS: methylPREDNISolone 125 MG/2 ML VIAL IVP SCH (06:06)
--- NOTE | 2016-04-29 07:17 | Pulmonology Progress Note ---
<Vinnie Nuñez - Last Filed: 04/29/16 08:10> Date of Encounter: 04/29/16 Time of Encounter: 07:15 Assessment and Plan (1) Acute exacerbation of chronic obstructive pulmonary disease (COPD) Current Visit: Yes Status: Acute Patient with Acute exacerbation of COPD. Patient continues to improve, maintaining good saturation on 2L nasal cannula at 96%. Switch to oral prednisone Continue duonebs q4h, symbicort, and azithromycin d2/3 (2) Acute respiratory failure with hypercapnia Current Visit: Yes Status: Resolved Continue per plan in assessment above. (3) HCAP (healthcare-associated pneumonia) Current Visit: Yes Status: Acute History of recent hospitalization and stay at [facility] Vancomycin and zosyn discontinued d3. Continue per hospitalist plan. (4) CHF (congestive heart failure) Current Visit: Yes Status: Chronic No acute exacerbation. Continue per hospitalist plan. Qualifiers: Congestive heart failure type: diastolic Congestive heart failure chronicity: chronic Qualified Code(s): I50.32 - Chronic diastolic (congestive ) heart failure (5) Goals of care, counseling/discussion Current Visit: Yes Status: Acute Patient continues to have improvement of symptoms with treatment. Will likely be discharged per Hospitalist to previous setting. Continue encouraging ambulation with physical therapy on board. Recommend remove silvestre if no additional indications to continue. Subjective Principal diagnosis: Acute exacerbation of COPD Interval history: Patient reports doing better overnight. Reports continued improvement of shortness of breath, comfortable on bipap at night, and satting between 96% on 2L nasal cannula, and cough improved. Patient denies fevers, chills, sweats, headaches, dizziness, chest pain, abdominal pain, changes in bowels or bladder, weakness, or loss of sensation. Objective PUL Vital signs: Last Vital Signs Temp 97.8 F 04/29/16 04:10 Pulse 103 04/29/16 04:10 Resp 14 04/29/16 04:10 BP 126/77 04/29/16 04:10 Pulse Ox 97 04/29/16 04:10 General appearance: no acute distress, alert Eyes: nonicteric ENT: oropharynx moist Neck: supple, no lymphadenopathy, no JVD Effort: mildly labored Auscultation: bilateral: diminished breath sounds, wheezes, rhonchi Cardiovascular: regular rate and rhythm Gastrointestinal: normoactive bowel sounds, soft, non-tender, non-distended Integumentary: normal Extremities: no cyanosis, no edema, pink and warm, pulses normal Musculoskeletal: no deformities Gait: normal posture normal mental status, non-focal exam, pupils equal and round, CN II-XII normal, motor strength normal and symmetric mood appropriate, affect normal Results - Laboratory Findings CBC and BMP: 04/27/16 06:40 04/27/16 04:44 ABG ABG pH 7.34 pH Units (7.32-7.45) 04/26/16 20:44 ABG pCO2 66 mmHg (35-45) H 04/26/16 20:44 ABG pO2 112 mmHg (85-104) H 04/26/16 20:44 ABG O2 Saturation 98 % (95-98) 04/26/16 20:44 Abnormal lab findings: Abnormal lab results WBC 12.8 K/mcL (4.3-11.1) H 04/27/16 06:40 RBC 3.47 M/mcL (4.19-5.50) L 04/27/16 06:40 Hgb 8.9 g/dL (12.9-16.9) L 04/27/16 06:40 Hct 30.7 % (37.5-50.1) L 04/27/16 06:40 MCH 25.6 pg (28.0-33.3) L 04/27/16 06:40 MCHC 29.0 g/dL (31.6-35.5) L 04/27/16 06:40 RDW 18.2 % (11.5-14.5) H 04/27/16 06:40 Band Neutrophils % 52.0 % (0-4) H 04/27/16 06:40 Neutrophils # 11.5 K/mcL (1.6-8.9) H 04/27/16 06:40 Lymphocytes # 0.5 K/mcL (0.6-4.6) L 04/27/16 06:40 Toxic Vacuolation Present (Not Present) A 04/27/16 06:40 Dohle Bodies Present (Not Present) A 04/27/16 06:40 Hypochromasia Present (Not Present) A 04/26/16 19:15 Anisocytosis 1+ (Not Present) A 04/27/16 06:40 ABG pCO2 66 mmHg (35-45) H 04/26/16 20:44 ABG pO2 112 mmHg (85-104) H 04/26/16 20:44 ABG HCO3 35.6 mEQ/L (21-27) H 04/26/16 20:44 ABG Total CO2 37.6 mEq/L (20-26) H 04/26/16 20:44 ABG Base Excess 8.0 mEq/L (-2.0 to 3.0) H 04/26/16 20:44 Potassium 5.1 mEq/L (3.5-4.5) H 04/27/16 04:44 BUN 38 mg/dL (8-26) H 04/27/16 04:44 BUN/Creatinine Ratio 43 (6-26) H 04/27/16 04:44 Glucose 133 mg/dL (70-99) H 04/27/16 04:44 Troponin I 0.08 ng/mL (0-0.03) H* 04/27/16 22:48 Albumin 2.6 g/dL (3.5-5.0) L 04/27/16 04:44 Globulin 4.8 g/dL (2.4-3.5) H 04/27/16 04:44 Albumin/Globulin Ratio 0.5 (1.1-2.2) L 04/27/16 04:44 - Microbiology Findings Microbiology Findings: Microbiology, Last 48 Hours 04/26/16 19:37 Blood Culture - Preliminary Peripheral Venipuncture No growth. 04/26/16 19:15 Blood Culture - Preliminary Peripheral Venipuncture No growth. - Clinical Findings Intake & Output: Intake & Output 04/28/16 04/28/16 04/29/16 15:59 23:59 07:59 Intake Total 480 / 480 640 / 640 520 / 520 Output Total 605 / 605 625 / 625 550 / 550 Balance -125 / -125 -30 / -30 Weight 53.3 kg Consult Discharge Plan - Plan [facility]: [facility] Provider[facility] - 05/12/16 2:30 pm <Judith Matias - Last Filed: 04/29/16 14:02> Date of Encounter: 04/29/16 Objective PUL Vital signs: Last Vital Signs Temp 97.5 F L 04/29/16 11:23 Pulse 120 04/29/16 12:00 Resp 20 04/29/16 11:23 BP 131/71 04/29/16 11:23 Pulse Ox 99 04/29/16 11:23 Results - Laboratory Findings CBC and BMP: 04/27/16 06:40 04/27/16 04:44 ABG ABG pH 7.34 pH Units (7.32-7.45) 04/26/16 20:44 ABG pCO2 66 mmHg (35-45) H 04/26/16 20:44 ABG pO2 112 mmHg (85-104) H 04/26/16 20:44 ABG O2 Saturation 98 % (95-98) 04/26/16 20:44 Abnormal lab findings: Abnormal lab results WBC 12.8 K/mcL (4.3-11.1) H 04/27/16 06:40 RBC 3.47 M/mcL (4.19-5.50) L 04/27/16 06:40 Hgb 8.9 g/dL (12.9-16.9) L 04/27/16 06:40 Hct 30.7 % (37.5-50.1) L 04/27/16 06:40 MCH 25.6 pg (28.0-33.3) L 04/27/16 06:40 MCHC 29.0 g/dL (31.6-35.5) L 04/27/16 06:40 RDW 18.2 % (11.5-14.5) H 04/27/16 06:40 Band Neutrophils % 52.0 % (0-4) H 04/27/16 06:40 Neutrophils # 11.5 K/mcL (1.6-8.9) H 04/27/16 06:40 Lymphocytes # 0.5 K/mcL (0.6-4.6) L 04/27/16 06:40 Toxic Vacuolation Present (Not Present) A 04/27/16 06:40 Dohle Bodies Present (Not Present) A 04/27/16 06:40 Hypochromasia Present (Not Present) A 04/26/16 19:15 Anisocytosis 1+ (Not Present) A 04/27/16 06:40 ABG pCO2 66 mmHg (35-45) H 04/26/16 20:44 ABG pO2 112 mmHg (85-104) H 04/26/16 20:44 ABG HCO3 35.6 mEQ/L (21-27) H 04/26/16 20:44 ABG Total CO2 37.6 mEq/L (20-26) H 04/26/16 20:44 ABG Base Excess 8.0 mEq/L (-2.0 to 3.0) H 04/26/16 20:44 Potassium 5.1 mEq/L (3.5-4.5) H 04/27/16 04:44 BUN 38 mg/dL (8-26) H 04/27/16 04:44 BUN/Creatinine Ratio 43 (6-26) H 04/27/16 04:44 Glucose 133 mg/dL (70-99) H 04/27/16 04:44 Troponin I 0.08 ng/mL (0-0.03) H* 04/27/16 22:48 Albumin 2.6 g/dL (3.5-5.0) L 04/27/16 04:44 Globulin 4.8 g/dL (2.4-3.5) H 04/27/16 04:44 Albumin/Globulin Ratio 0.5 (1.1-2.2) L 04/27/16 04:44 - Microbiology Findings Microbiology Findings: Microbiology, Last 48 Hours 04/26/16 19:37 Blood Culture - Preliminary Peripheral Venipuncture No growth. 04/26/16 19:15 Blood Culture - Preliminary Peripheral Venipuncture No growth. - Clinical Findings Intake & Output: Intake & Output 04/28/16 04/29/16 04/29/16 23:59 07:59 15:59 Intake Total 640 / 640 520 / 520 0 / 0 Output Total 625 / 625 900 / 900 950 / 950 Balance -380 / -380 -950 / -950 Weight 53.3 kg - Attending Attestation I examined this patient and my medical decision-making was reviewed with the OUTSIDE DELIVERER/PA/Advanced Practice Nurse/Resident Physician. I agree with the documented findings, disposition and treatment plan as described except to the extent set forth below. Patient seen and examined. Labs, radiology, chart personally reviewed. 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 Continue with current treatment and still poor prognosis. Patient needs physical therapy and would recommend to d/c Silvestre's catheter. Cardiovascular: stable Please call for any questions, will follow up PRN.
[2016-04-29] MEDS: Budesonide/Formoterol 160/4.5 MDI IH SCH ×2 (07:58→20:22)
[2016-04-29] MEDS ORDERED: predniSONE 20 MG TABLET PO SCH (09:00)
[2016-04-29] MEDS: Cyanocobalamin (B-12) 1,000 MCG TABLET PO SCH (10:16)
[2016-04-29] MEDS: predniSONE 20 MG TABLET PO SCH (10:17)
[2016-04-29] MEDS: Loratadine 10 MG TABLET PO SCH (10:17)
[2016-04-29] MEDS: Azithromycin 250 MG TABLET PO SCH (10:17)
[2016-04-29] MEDS: Isosorbide MONOnitrate (24 HR) 60 MG TAB.ER.24H PO SCH (10:17)
[2016-04-29] MEDS: Folic Acid 1 MG TABLET PO SCH (10:17)
[2016-04-29] MEDS: Aspirin 81 MG TAB.CHEW PO SCH (10:17)
[2016-04-29] MEDS: *HR* LORazepam 0.5 MG TABLET PO SCH ×2 (10:17→21:09)
[2016-04-29] MEDS: Pantoprazole 40 MG VIAL IVP SCH (10:18)
[2016-04-29] MEDS: Fluticasone Propionate Nasal 50 MCG/SPRAY BOTTLE NS SCH ×2 (10:18→21:12)
[2016-04-29] MEDS: *HR* Enoxaparin 40 MG/0.4 ML SYRINGE SQ SCH (10:18)
[2016-04-29] MEDS: Chlorhexidine Rinse 15 ML MOUTHWASH MM SCH ×4 (10:22→21:12)
--- NOTE | 2016-04-29 11:51 | Internal Med Progress Note ---
Date of Encounter: 04/29/16 Time of Encounter: 11:50 - Assessment and plan (1) Elevated troponin Current Visit: Yes Status: Chronic Assessment and plan: Patient was noted to have a troponin of 1.25 at the [facility], currently trending down. This is most likely related to hypoxia and respiratory distress and acute COPD. Echocardiogram showed right ventricular dysfunction, possible cor pulmonale. Continue telemetry monitoring at this time, showing sinus tachycardia. Cardiology consult appreciated, agree with current management and recommended no further testing/intervention. Patient is noted to have sinus tachycardia related to underlying COPD and albuterol treatments. (2) Acute exacerbation of chronic obstructive pulmonary disease (COPD) Current Visit: Yes Status: Acute Assessment and plan: Patient presents with acute exacerbation of stage IV COPD. noted to have significant improvement clinically. Pulmonology follow-up appreciated. Change to oral steroids and continue empiric antibiotic therapy with azithromycin/day 2. Continue inhaled corticosteroids, bronchodilators, supplemental oxygen with intermittent BiPAP support as needed. We will repeat ABG today and possible overnight BiPAP qualification study for elevated PCO2. Follow physical therapy evaluation, anticipate discharge in a.m. Patient has guarded prognosis due to terminal and progressive nature of COPD and he understands his current clinical situation. He wishes to be full code after understanding the risks and benefits. (3) CAD (coronary artery disease) Current Visit: Yes Status: Chronic Assessment and plan: Continue aspirin, statin. Beta ivan is held due to acute exacerbation of COPD. Qualifiers: Coronary Disease-Associated Artery/Lesion type: unspecified vessel or lesion type [place] vs. transplanted heart: [place] heart Associated angina: without angina Qualified Code(s): I25.10 - Atherosclerotic heart disease of [place] coronary artery without angina pectoris (4) CHF (congestive heart failure) Current Visit: Yes Status: Chronic Qualifiers: Congestive heart failure type: diastolic Congestive heart failure chronicity: chronic Qualified Code(s): I50.32 - Chronic diastolic (congestive ) heart failure (5) Hypertension Current Visit: Yes Status: Chronic Qualifiers: Hypertension type: essential hypertension Qualified Code(s): I10 - Essential (primary) hypertension (6) Hypothyroidism Current Visit: Yes Status: Chronic Qualifiers: Hypothyroidism type: acquired Qualified Code(s): E03.9 - Hypothyroidism, unspecified - Subjective Interval history: Noted to be improving. Improved chest pain and shortness of breath and cough. Was constipated previously but had a bowel movement this morning. Requiring 2 L /m nasal cannula, which is his baseline. Also required BiPAP support for 2-3 hours overnight. - Constitutional Vitals: Temp Pulse Resp BP Pulse Ox 97.5 F L 120 20 131/71 99 04/29/16 11:23 04/29/16 11:23 04/29/16 11:23 04/29/16 11:23 04/29/16 11:23 General appearance: Present: cachectic, A&O X 3, underweight, answers questions appropriately - Respiratory Respiratory exam: Present: decreased breath sounds (Bilateral decreased air entry, no active wheezing or rhonchi.). Absent: accessory muscle use, rales, rhonchi, wheezes - Cardiovascular Cardiovascular exam: Present: RRR, +S1, +S2, tachycardia. Absent: diastolic murmur, gallop, rubs, systolic murmur - GI/Abdominal GI/Abdominal exam: Present: normal bowel sounds, soft, no peritoneal signs. Absent: distended, tenderness Internal Medicine: Result - Labs CBC & Chem 7: 04/27/16 06:40 04/27/16 04:44 - ABG Interpretation ABG results: ABG ABG pH 7.34 pH Units (7.32-7.45) 04/26/16 20:44 ABG pCO2 66 mmHg (35-45) H 04/26/16 20:44 ABG pO2 112 mmHg (85-104) H 04/26/16 20:44 ABG O2 Saturation 98 % (95-98) 04/26/16 20:44 Consult Discharge Plan - Plan [facility]errals: [facility]Primary Care Provider[facility] - 05/12/16 2:30 pm
[2016-04-29] MEDS: Acetaminophen 325 MG TABLET PO PRN (15:36)
[2016-04-30] MEDS: Acetaminophen 325 MG TABLET PO PRN ×2 (02:10→08:07)
[2016-04-30] MEDS: Ipratropium/Albuterol Neb 3 ML IH SCH ×4 (02:24→11:44)
[2016-04-30] MEDS: Acetylcysteine 10% 2 ML INHSOL IH SCH ×2 (04:27→08:01)
[2016-04-30] MEDS: Budesonide/Formoterol 160/4.5 MDI IH SCH (08:04)
[2016-04-30] MEDS: predniSONE 20 MG TABLET PO SCH (08:06)
[2016-04-30] MEDS: Azithromycin 250 MG TABLET PO SCH (08:06)
[2016-04-30] MEDS: Folic Acid 1 MG TABLET PO SCH (08:06)
[2016-04-30] MEDS: Cyanocobalamin (B-12) 1,000 MCG TABLET PO SCH (08:06)
[2016-04-30] MEDS: Chlorhexidine Rinse 15 ML MOUTHWASH MM SCH ×2 (08:06→11:24)
[2016-04-30] MEDS: *HR* LORazepam 0.5 MG TABLET PO SCH (08:06)
[2016-04-30] MEDS: *HR* Enoxaparin 40 MG/0.4 ML SYRINGE SQ SCH (08:07)
[2016-04-30] MEDS: Aspirin 81 MG TAB.CHEW PO SCH (08:07)
[2016-04-30] MEDS: Loratadine 10 MG TABLET PO SCH (08:07)
[2016-04-30] MEDS: Isosorbide MONOnitrate (24 HR) 60 MG TAB.ER.24H PO SCH (08:07)
[2016-04-30] MEDS: Fluticasone Propionate Nasal 50 MCG/SPRAY BOTTLE NS SCH (08:08)
[2016-04-30] MEDS ORDERED: Hydrocortisone Acetate 25 MG RECTAL SUPPOSITORY RC PRN (10:29)
--- NOTE | 2016-04-30 10:41 | Internal Med Progress Note ---
Date of Encounter: 04/30/16 Time of Encounter: 10:38 - Assessment and plan (1) Elevated troponin Current Visit: Yes Status: Chronic (2) Acute exacerbation of chronic obstructive pulmonary disease (COPD) Current Visit: Yes Status: Acute Assessment and plan: Patient presents with acute exacerbation of stage IV COPD. noted to have significant improvement clinically. Pulmonology follow-up appreciated. Continue oral prednisone, completed a course of azithromycin today. Continue inhaled corticosteroids, bronchodilators, supplemental oxygen with intermittent BiPAP support as needed; plan to wean off BiPAP in anticipation of transfer back to the rehabilitation. Repeat ABG shows PCO2 of 66, which is likely his baseline given his advanced COPD. (3) CAD (coronary artery disease) Current Visit: Yes Status: Chronic Assessment and plan: Continue aspirin, statin. Beta ivan is held due to acute exacerbation of COPD. Qualifiers: Coronary Disease-Associated Artery/Lesion type: unspecified vessel or lesion type [place] vs. transplanted heart: [place] heart Associated angina: without angina Qualified Code(s): I25.10 - Atherosclerotic heart disease of [place] coronary artery without angina pectoris (4) CHF (congestive heart failure) Current Visit: Yes Status: Chronic Qualifiers: Congestive heart failure type: diastolic Congestive heart failure chronicity: chronic Qualified Code(s): I50.32 - Chronic diastolic (congestive ) heart failure (5) Hypertension Current Visit: Yes Status: Chronic Qualifiers: Hypertension type: essential hypertension Qualified Code(s): I10 - Essential (primary) hypertension (6) Hypothyroidism Current Visit: Yes Status: Chronic Qualifiers: Hypothyroidism type: acquired Qualified Code(s): E03.9 - Hypothyroidism, unspecified - Subjective Interval history: Noted to be improving. Breathing better, back to baseline oxygen requirements at 2 L/m via nasal cannula. Use BiPAP for 2-3 hours last night. No chest pain , shortness of breath, leg swelling. Improved constipation but seems to have some discomfort from hemorrhoids. Awaiting transfer back to [facility]; - Constitutional Vitals: Temp Pulse Resp BP Pulse Ox 98.5 F 111 20 138/84 94 L 04/30/16 07:27 04/30/16 07:27 04/30/16 07:27 04/30/16 07:27 04/30/16 07:27 General appearance: Present: cachectic, A&O X 3, underweight, answers questions appropriately - Respiratory Respiratory exam: Present: CTAB (Improving air entry/breath sounds. No active wheezing or rhonchi.). Absent: accessory muscle use, rales, rhonchi, wheezes - Cardiovascular Cardiovascular exam: Present: RRR, +S1, +S2, tachycardia. Absent: diastolic murmur, gallop, rubs, systolic murmur - GI/Abdominal GI/Abdominal exam: Present: normal bowel sounds, soft, no peritoneal signs. Absent: distended, tenderness Internal Medicine: Result - Labs CBC & Chem 7: 04/27/16 06:40 04/27/16 04:44 - ABG Interpretation ABG results: ABG ABG pH 7.34 pH Units (7.32-7.45) 04/26/16 20:44 ABG pCO2 66 mmHg (35-45) H 04/26/16 20:44 ABG pO2 112 mmHg (85-104) H 04/26/16 20:44 ABG O2 Saturation 98 % (95-98) 04/26/16 20:44 Consult Discharge Plan - Plan [facility]errals: [facility] [Primary Care Provider] - 05/12/16 2:30 pm
[2016-04-30 11:19] VITALS: BP 139/78
--- NOTE | 2016-04-30 12:21 | Discharge Summary ---
Date of Encounter: 04/30/16 Time of Encounter: 11:00 - Discharge Diagnosis (1) Elevated troponin Priority: Primary Status: Chronic (2) Acute exacerbation of chronic obstructive pulmonary disease (COPD) Priority: Primary Status: Acute (3) CAD (coronary artery disease) Priority: Secondary Status: Chronic Qualifiers: Coronary Disease-Associated Artery/Lesion type: unspecified vessel or lesion type [place] vs. transplanted heart: [place] heart Associated angina: without angina Qualified Code(s): I25.10 - Atherosclerotic heart disease of [place] coronary artery without angina pectoris (4) CHF (congestive heart failure) Priority: Secondary Status: Chronic Qualifiers: Congestive heart failure type: diastolic Congestive heart failure chronicity: chronic Qualified Code(s): I50.32 - Chronic diastolic (congestive ) heart failure (5) Hypertension Priority: Secondary Status: Chronic Qualifiers: Hypertension type: essential hypertension Qualified Code(s): I10 - Essential (primary) hypertension (6) Hypothyroidism Priority: Secondary Status: Chronic Qualifiers: Hypothyroidism type: acquired Qualified Code(s): E03.9 - Hypothyroidism, unspecified - Discharge Medications Prescriptions: PredniSONE 60 mg PO DAILY #3 tablet Home Medications: Aspirin 81 mg PO DAILY 12/12/14 [History] Clopidogrel [Plavix] 75 mg PO DAILY 12/12/14 [History] Cyanocobalamin (B-12) [Vitamin B12] 1,000 mcg PO DAILY #30 tablet 03/14/16 [Rx] Folic Acid 1 mg PO DAILY #30 tablet 03/14/16 [Rx] Acetaminophen [Tylenol] 650 mg PO Q6HR PRN 04/26/16 [History] Albuterol Neb [Proventil Neb] 2.5 mg IH QID PRN 04/26/16 [History] Budesonide/Formoterol 160/4.5 [Symbicort 160/4.5] 2 puff IH BIDR 04/26/16 [ History] Cetirizine HCl [Zyrtec] 10 mg PO DAILY 04/26/16 [History] Famotidine [Pepcid] 20 mg PO BID 04/26/16 [History] Fluticasone Propionate Nasal [Flonase] 50 mcg NS BID 04/26/16 [History] Furosemide [Lasix] 30 mg PO DAILY 04/26/16 [History] Ipratropium [place] 15 ml NS BID 04/26/16 [History] Ipratropium/Albuterol Neb [Duoneb] 3 ml IH Q6H PRN 04/26/16 [History] Ipratropium/Albuterol Sulfate [Combivent Respimat Inhal [place]] 1 puff IH Q4H PRN 04/26/16 [History] Isosorbide MONOnitrate (24 HR) [Imdur] 60 mg PO DAILY 04/26/16 [History] LORazepam [Ativan] 0.5 mg PO BID 04/26/16 [History] LORazepam [Ativan] 0.5 mg PO HS PRN 04/26/16 [History] Lisinopril 2.5 mg PO DAILY 04/26/16 [History] Loratadine [Allergy Relief] 10 mg PO DAILY 04/26/16 [History] Metoprolol Succinate 50 mg PO DAILY 04/26/16 [History] Phenylephrine HCl/Hard Fat [Shayy-Med] 1 each RC HS PRN 04/26/16 [History] Ranitidine HCl [Zantac] 150 mg PO BID 04/26/16 [History] Simvastatin [Zocor] 40 mg PO HS 04/26/16 [History] PredniSONE 60 mg PO DAILY #3 tablet 04/30/16 [Rx] Allergies/Adverse Reactions: Allergies Tetracycline Allergy (Verified 03/10/16 06:33) Hives codeine Adverse Reaction (Verified 03/10/16 06:33) Headache Date of admission: 04/26/16 16:59 Primary care physician: PCP [facility] Consults: 04/27/16 10:27 Consult to Pulmonology [CONS] Routine Consulting Provider: [facility] Reason for Consult: AECOPD with severe COPD Call Completed: Yes 04/28/16 10:23 Consult to Cardiology [CONS] Routine Comment: Consulting Provider: Chris Moran Reason for Consult: Elevated Troponin Call Completed: No 04/28/16 11:05 Consult to Sheet Metal Erector [CONS] Routine Reason for SW Consult: FROM [facility]. 04/28/16 11:28 OT [Consult to Occupational Therapy] [CONS] Routine Comment: Evaluate, develop and implement POC PT [Consult to Physical Therapy] [CONS] Routine Comment: Evaluate, develop and implement POC Discharging clinician: Tara Mar Anticipated date of discharge: 04/30/16 - Patient Status Disposition: Transfer SNF Condition: Good Functional capacity at discharge: uses cane/walker Overall status at discharge: patient is progressing back to baseline - Discharge Instructions Instructions: Heart Failure (DC), Acute Respiratory Distress Syndrome (DC), Chronic Obstructive Pulmonary Disease (DC) Follow Up With: [facility],PCP [Primary Care Provider] - 05/12/16 2:30 pm - Diet and Activity Activity: as per physical therapy, wear oxygen at all times Diet: low salt diet (cardiac) Hospital course: Mr. Reeder is a 66 year old male with severe COPD who was transferred from [facility] for evaluation of respiratory distress and elevated troponins. Patient was noted to be having an acute exacerbation of COPD and was started on IV steroids, bronchodilators, supplemental oxygen and BiPAP support. There was a questionable diagnosis of healthcare associated pneumonia and he was initially started on broad-spectrum IV antibiotics. However, review of imaging studies showed no evidence of pneumonia and his antibiotics were de- escalated to azithromycin for the treatment of acute COPD. Pulmonology was consulted for severe COPD and recommended to increase the dose of IV steroids and continue the remaining treatment. Multiple discussions were made with the patient and his regarding the terminal nature of COPD, however he wishes to remain full code for now. Patient was noted to have slightly elevated troponin, which trended down. Patient was recently admitted to our hospital about 2 months back with non-ST elevation AK and echocardiogram at that time showed significant right ventricular dysfunction and cor pulmonale and recommended medical management. Cardiology was consulted again during this admission and agree that his troponin leak is related to cor pulmonale and recommended no further interventions/treatment. He was continued on his home medications for coronary artery disease. Patient significantly improved with IV steroids and is currently at his baseline oxygen requirements of 2-3 L/m via nasal cannula and not requiring BiPAP support. Physical therapy evaluation was done and recommended placement in extended care facility. Case was discussed with at the [facility], who accepted the patient back for continued rehabilitation. - Time Spent with Patient Total time spent providing and/or coordinating discharge services: Greater than 30 minutes (50 min) - Constitutional Vitals: Temp Pulse Resp BP Pulse Ox 98.5 F 125 20 139/78 94 L 04/30/16 11:18 04/30/16 11:18 04/30/16 11:46 04/30/16 11:18 04/30/16 11:46 General appearance: Present: cachectic, A&O X 3, underweight, answers questions appropriately - Respiratory Respiratory exam: Present: CTAB (improved air entry B/L, no active wheezing, rhonchi). Absent: accessory muscle use, rales, rhonchi, wheezes - Cardiovascular Cardiovascular exam: Present: RRR, +S1, +S2, tachycardia. Absent: diastolic murmur, gallop, rubs, systolic murmur
--- NOTE | 2016-04-30 12:24 | Physician Discharge Referral ---
ExtendedCare Referral Info Transfer To: [facility] Provider in Charge: Tara Mar Provider in Charge after Transfer: PCP Institutional Level of Care: Skilled - Diagnosis (1) Elevated troponin Priority: Primary Status: Chronic (2) Acute exacerbation of chronic obstructive pulmonary disease (COPD) Priority: Primary Status: Acute (3) CAD (coronary artery disease) Priority: Secondary Status: Chronic (4) CHF (congestive heart failure) Priority: Secondary Status: Chronic (5) Hypertension Priority: Secondary Status: Chronic (6) Hypothyroidism Priority: Secondary Status: Chronic Expected Duration of Placement: 3 weeks Prognosis: Poor Aware of Diagnosis: Patient, Family Aware of Prognosis: Patient, Family - Transfer Medications Prescriptions: PredniSONE 60 mg PO DAILY #3 tablet Home Medications: Aspirin 81 mg PO DAILY 12/12/14 [History] Clopidogrel [Plavix] 75 mg PO DAILY 12/12/14 [History] Cyanocobalamin (B-12) [Vitamin B12] 1,000 mcg PO DAILY #30 tablet 03/14/16 [Rx] Folic Acid 1 mg PO DAILY #30 tablet 03/14/16 [Rx] Acetaminophen [Tylenol] 650 mg PO Q6HR PRN 04/26/16 [History] Albuterol Neb [Proventil Neb] 2.5 mg IH QID PRN 04/26/16 [History] Budesonide/Formoterol 160/4.5 [Symbicort 160/4.5] 2 puff IH BIDR 04/26/16 [ History] Cetirizine HCl [Zyrtec] 10 mg PO DAILY 04/26/16 [History] Famotidine [Pepcid] 20 mg PO BID 04/26/16 [History] Fluticasone Propionate Nasal [Flonase] 50 mcg NS BID 04/26/16 [History] Furosemide [Lasix] 30 mg PO DAILY 04/26/16 [History] Ipratropium [place] 15 ml NS BID 04/26/16 [History] Ipratropium/Albuterol Neb [Duoneb] 3 ml IH Q6H PRN 04/26/16 [History] Ipratropium/Albuterol Sulfate [Combivent Respimat Inhal [place]] 1 puff IH Q4H PRN 04/26/16 [History] Isosorbide MONOnitrate (24 HR) [Imdur] 60 mg PO DAILY 04/26/16 [History] LORazepam [Ativan] 0.5 mg PO BID 04/26/16 [History] LORazepam [Ativan] 0.5 mg PO HS PRN 04/26/16 [History] Lisinopril 2.5 mg PO DAILY 04/26/16 [History] Loratadine [Allergy Relief] 10 mg PO DAILY 04/26/16 [History] Metoprolol Succinate 50 mg PO DAILY 04/26/16 [History] Phenylephrine HCl/Hard Fat [Shayy-Med] 1 each RC HS PRN 04/26/16 [History] Ranitidine HCl [Zantac] 150 mg PO BID 04/26/16 [History] Simvastatin [Zocor] 40 mg PO HS 04/26/16 [History] PredniSONE 60 mg PO DAILY #3 tablet 04/30/16 [Rx] Allergies/Adverse Reactions: Allergies Tetracycline Allergy (Verified 03/10/16 06:33) Hives codeine Adverse Reaction (Verified 03/10/16 06:33) Headache - Respiratory Orders Oxygen / L per min (2-3L/min via NC) Smoking Cessation: Smoking cessation has been advised. For more information, call the [place] Tobacco Quit Line at 3-338-BPDG-NOW. - Advance Directives Power of Director Of Institutional Giving: Yes () Code Status: Full Code - Mobility Orders Ambulate - Rehabiliation Orders Rehab Potential: Fair Rehab Orders: ROM Exercises, Evaluation for Physical Therapy, Evaluation for Occupational Therapy - Diet Orders No Added Salt (RODRIGO), Cardiac CERTIFICATION: I certify that the transfer of the above named patient to an Extended Care Facility is necessary for the continuing treatment of the diagnosis listed. The above information is true and accurate reflection of patient's current condition. Confidential - Redisclosure prohibited without a patient's written consent.
== END 2016-04-30 13:43 | DRG 189 ==
LOC: OBSVTOIN 16:59 → 2NNU 16:59 → INTOOBSV 16:59 → UNDODISIN 04-29 17:45
PROVIDERS: ADMIT Internal Medicine; ATTEND Internal Medicine

== ENCOUNTER 2016-06-10 14:58 | Inpatient (IN) ==
[2016-06-10] MEDS ORDERED: Ipratropium/Albuterol Neb 3 ML ONE (15:12)
[2016-06-10] MEDS ORDERED: Ipratropium/Albuterol Neb 3 ML IH ONE (15:21)
[2016-06-10 15:27] LABS: ABG Base Excess 8.3 mEq/L (-2.0 to 3.0); ABG Oxygen Saturation 99 % (95-98); ABG PH 7.25 pH Units (7.32-7.45); ABG PO2 165 mmHg (85-104); ABG TCO2 41.7 mEq/L (20-26)
[2016-06-10 15:29] LABS: ABG PCO2 89 mmHg (35-45); Blood Gas FiO2 100 %
[2016-06-10 16:17] LABS: Basophils # 0.1 K/mcL (0.0-0.2); Basophils % 0.2 %; Hematocrit 40.9 % (37.5-50.1); Hemoglobin 12.6 g/dL (12.9-16.9); Immature Granulocytes % 1.2 % (0-4); Lymphocytes # 0.3 K/mcL (0.6-4.6); Lymphocytes % 0.8 %; Mean Corpuscular HGB Conc 30.8 g/dL (31.6-35.5); Mean Corpuscular Hemoglobin 28.5 pg (28.0-33.3); Mean Corpuscular Volume 92.5 fL (83.0-100.0); Mean Platelet Volume 9.4 fL (9.4-12.4); Monocytes # 1.2 K/mcL (0.0-1.3); Monocytes % 3.9 %; Neutrophils # 28.9 K/mcL (1.6-8.9); Platelet Count 320 K/mcL (140-400); Red Blood Count 4.42 M/mcL (4.19-5.50); Segmented Neutrophils % 93.9 %
[2016-06-10 16:30] LABS: Albumin/Globulin Ratio 0.6 (1.1-2.2); Bilirubin,Total 0.3 mg/dL (0.2-1.2); Globulin 4.8 g/dL (2.4-3.5); Potassium 5.8 mEq/L (3.5-4.5); Total Protein 7.8 g/dL (6.0-8.3)
[2016-06-10 16:40] LABS: INR 1.1; Prothrombin Time 12.2 Seconds (9.4-12.1)
[2016-06-10 16:43] LABS: Activated Partial Thrombo Time 26.2 Seconds (26.0-36.0)
[2016-06-10 16:47] LABS: ABG Base Excess 8.3 mEq/L (-2.0 to 3.0); ABG HCO3 37.3 mEQ/L (21-27); ABG Oxygen Saturation 86 % (95-98); ABG PH 7.31 pH Units (7.32-7.45); ABG PO2 57 mmHg (85-104); ABG TCO2 39.6 mEq/L (20-26)
[2016-06-10] MEDS ORDERED: Vancomycin 1,000 MG in D5% in Water 250 ML IVPB ONE (16:51)
[2016-06-10] MEDS ORDERED: Piperacillin/Tazobactam 3.375 GM in D5% in Water (Mini-Bag+) 100 ML IVPB ONE (16:51)
[2016-06-10 16:52] LABS: ABG PCO2 74 mmHg (35-45); Blood Gas FiO2 35 %
[2016-06-10] MEDS ORDERED: 0.9 % Sodium Chloride 500 ML IV ONE (16:56)
--- NOTE | 2016-06-10 17:12 | Emergency Department Note ---
Disposition Clinical Impression: Healthcare-associated pneumonia Disposition: Admitted As Inpatient Condition: Fair [facility]errals: [facility] [Primary Care Provider[facility] - Forms: ED Satisfaction Letter SOB HPI - General Chief Complaint: ED Shortness of Breath/Dyspnea Stated Complaint: KISHORE Time Seen by Provider: 06/10/16 15:08 Source: EMS Limitations: no limitations Nursing Notes Reviewed: Yes Vital Signs Reviewed: Yes - History of Present Illness History presents transfer from [facility] due to worsening condition. Patient was admitted for shortness of breath and being treated for pneumonia. Note that today patient continued to worsen and require more oxygen. Patient Oxistat duration is 80 and he was having difficulty breathing. Patient denies chest pain is a reported fevers or chills. - Related Data Home Medications Medication Instructions Recorded Confirmed Aspirin 81 mg PO DAILY 12/12/14 04/26/16 Clopidogrel [Plavix] 75 mg PO DAILY 12/12/14 04/26/16 Acetaminophen [Tylenol] 650 mg PO Q6HR PRN 04/26/16 04/26/16 Albuterol Neb [Proventil Neb] 2.5 mg IH QID PRN 04/26/16 04/26/16 Budesonide/Formoterol 160/4.5 2 puff IH BIDR 04/26/16 04/26/16 [Symbicort 160/4.5] Cetirizine HCl [Zyrtec] 10 mg PO DAILY 04/26/16 04/26/16 Famotidine [Pepcid] 20 mg PO BID 04/26/16 04/26/16 Fluticasone Propionate Nasal 50 mcg NS BID 04/26/16 04/26/16 [Flonase] Furosemide [Lasix] 30 mg PO DAILY 04/26/16 04/26/16 Ipratropium [place] 15 ml NS BID 04/26/16 04/26/16 Ipratropium/Albuterol Neb [Duoneb] 3 ml IH Q6H PRN 04/26/16 04/26/16 Ipratropium/Albuterol Sulfate 1 puff IH Q4H PRN 04/26/16 04/26/16 [Combivent Respimat Inhal [place]] Isosorbide MONOnitrate (24 HR) 60 mg PO DAILY 04/26/16 04/26/16 [Imdur] LORazepam [Ativan] 0.5 mg PO BID 04/26/16 04/26/16 LORazepam [Ativan] 0.5 mg PO HS PRN 04/26/16 04/26/16 Lisinopril 2.5 mg PO DAILY 04/26/16 04/26/16 Loratadine [Allergy Relief] 10 mg PO DAILY 04/26/16 04/26/16 Metoprolol Succinate 50 mg PO DAILY 04/26/16 04/26/16 Phenylephrine HCl/Hard Fat 1 each RC HS PRN 04/26/16 04/26/16 [Shayy-Med] Ranitidine HCl [Zantac] 150 mg PO BID 04/26/16 04/26/16 Simvastatin [Zocor] 40 mg PO HS 04/26/16 04/26/16 Previous Rx's Medication Instructions Recorded Cyanocobalamin (B-12) [Vitamin B12] 1,000 mcg PO DAILY #30 tablet 03/14/16 Folic Acid 1 mg PO DAILY #30 tablet 03/14/16 PredniSONE 60 mg PO DAILY #3 tablet 04/30/16 Allergies Allergy/AdvReac Type Severity Reaction Status Date / Time Tetracycline Allergy Hives Verified 03/10/16 06:33 codeine AdvReac Headache Verified 03/10/16 06:33 Limitations: ROS unobtainable due to patients medical condition Past Medical History - Past Medical History Source: unable to obtain, old records reviewed Medical history: Reports: CHF, COPD, coronary artery disease, CVA, GERD, hyperlipidemia, hypertension, myocardial infarction Surgical history: Reports: angioplasty/stent Psychiatric history: Reports: no psych history - Social History Smoking Status: Former smoker Smokeless Tobacco Status: No Alcohol use: Reports: none Drug use: Reports: none Physical Exam - General Limitations: no limitations General appearance: alert - Head Head exam: atraumatic, normocephalic, normal inspection - Eye Eye exam: Present: PERRL, EOMI - ENT ENT exam: normal exam, normal oropharynx - Neck Neck exam: Present: normal inspection, full ROM - Chest Chest inspection: Present: normal inspection, symmetric chest wall rise - Respiratory Respiratory exam: Present: wheezes, accessory muscle use - Cardiovascular Cardiovascular exam: Present: tachycardia - Abdominal Exam Abdominal exam: Present: soft, Non-Tender. Absent: tenderness, distention, guarding, rebound, rigidity - Extremities Exam Extremities exam: Present: normal inspection, full ROM. Absent: tenderness, pedal edema - Back Exam Back exam: Present: normal inspection, full ROM. Absent: tenderness - Neurological Exam Neurological exam: Present: alert, oriented X3 - Psychiatric Psychiatric exam: Present: normal affect, normal mood - Skin Skin exam: Present: warm, dry, intact, normal color Course Vital Signs Temperature 97.6 F 06/10/16 15:02 Pulse Rate 106 06/10/16 15:02 Respiratory Rate 24 06/10/16 15:02 Blood Pressure 155/66 06/10/16 15:02 O2 Sat by Pulse Oximetry 86 L 06/10/16 15:02 Temperature 97.6 F 06/10/16 15:02 Pulse Rate 106 06/10/16 15:02 Respiratory Rate 30 06/10/16 15:33 Blood Pressure 155/66 06/10/16 15:02 O2 Sat by Pulse Oximetry 99 06/10/16 15:33 Oxygen Delivery Oxygen Delivery Nasal Cannula Shortness of Breath/Dyspnea - Differential Diagnosis Likely: acute exacerbation of chronic obstructive airways disease, congestive heart failure, pneumonia, pulmonary embolism - Lab Data Lab results reviewed: Yes I reviewed the patient's lab results. Result diagrams: 06/10/16 16:06 06/10/16 16:06 Lab Results 06/10/16 06/10/16 06/10/16 Range/Units 14:13 16:06 16:06 WBC 30.8 H* (4.3-11.1) K/mcL RBC 4.42 (4.19-5.50) M/mcL Hgb 12.6 L (12.9-16.9) g/dL Hct 40.9 (37.5-50.1) % MCV 92.5 (83.0-100.0) fL MCH 28.5 (28.0-33.3) pg MCHC 30.8 L (31.6-35.5) g/dL RDW 18.0 H (11.5-14.5) % Plt Count 320 (140-400) K/mcL MPV 9.4 (9.4-12.4) fL Immature Gran % 1.2 (0-4) % Seg Neutrophils % 93.9 % Lymphocytes % 0.8 % Monocytes % 3.9 % Eosinophils % 0.0 % Basophils % 0.2 % Neutrophils # 28.9 H (1.6-8.9) K/mcL Lymphocytes # 0.3 L (0.6-4.6) K/mcL Monocytes # 1.2 (0.0-1.3) K/mcL Eosinophils # 0.0 (0.0-0.6) K/mcL Basophils # 0.1 (0.0-0.2) K/mcL PT 12.2 H (9.4-12.1) Seconds INR 1.1 APTT 26.2 (26.0-36.0) Seconds ABG pH 7.25 L (7.32-7.45) pH Units ABG pCO2 89 H* (35-45) mmHg ABG pO2 165 H (85-104) mmHg ABG HCO3 39.0 H (21-27) mEQ/L ABG Total CO2 41.7 H (20-26) mEq/L ABG O2 Saturation 99 H (95-98) % ABG Base Excess 8.3 H (-2.0 to 3.0) mEq/L Blood Gas Modality NRB MASK Inspired O2 100 % Sodium (136-145) mEq/L Potassium (3.5-4.5) mEq/L Chloride (98-109) mEq/L Carbon Dioxide (19-29) mEq/L BUN (8-26) mg/dL Creatinine (0.72-1.25) mg/dL Est GFR ( Amer) (> 60) Est GFR (Non-Af Amer) (> 60) BUN/Creatinine Ratio (6-26) Glucose (70-99) mg/dL Calculated Osmolality (280-300) Lactic Acid (0.5-2.2) mmol/L Calcium (8.6-10.8) mg/dL Total Bilirubin (0.2-1.2) mg/dL AST (5-34) Units/L ALT (0-55) Units/L Alkaline Phosphatase (38-126) Units/L Troponin I (0-0.03) ng/mL B-Natriuretic Peptide (0-100) pg/mL Serum Total Protein (6.0-8.3) g/dL Albumin (3.5-5.0) g/dL Globulin (2.4-3.5) g/dL Albumin/Globulin Ratio (1.1-2.2) 06/10/16 06/10/16 06/10/16 Range/Units 16:06 16:06 16:06 WBC (4.3-11.1) K/mcL RBC (4.19-5.50) M/mcL Hgb (12.9-16.9) g/dL Hct (37.5-50.1) % MCV (83.0-100.0) fL MCH (28.0-33.3) pg MCHC (31.6-35.5) g/dL RDW (11.5-14.5) % Plt Count (140-400) K/mcL MPV (9.4-12.4) fL Immature Gran % (0-4) % Seg Neutrophils % % Lymphocytes % % Monocytes % % Eosinophils % % Basophils % % Neutrophils # (1.6-8.9) K/mcL Lymphocytes # (0.6-4.6) K/mcL Monocytes # (0.0-1.3) K/mcL Eosinophils # (0.0-0.6) K/mcL Basophils # (0.0-0.2) K/mcL PT (9.4-12.1) Seconds INR APTT (26.0-36.0) Seconds ABG pH (7.32-7.45) pH Units ABG pCO2 (35-45) mmHg ABG pO2 (85-104) mmHg ABG HCO3 (21-27) mEQ/L ABG Total CO2 (20-26) mEq/L ABG O2 Saturation (95-98) % ABG Base Excess (-2.0 to 3.0) mEq/L Blood Gas Modality Inspired O2 % Sodium 134 L (136-145) mEq/L Potassium 5.8 H (3.5-4.5) mEq/L Chloride 95 L (98-109) mEq/L Carbon Dioxide 29 (19-29) mEq/L BUN 58 H (8-26) mg/dL Creatinine 1.58 H (0.72-1.25) mg/dL Est GFR ( Amer) 53 L (> 60) Est GFR (Non-Af Amer) 44 L (> 60) BUN/Creatinine Ratio 37 H (6-26) Glucose 155 H (70-99) mg/dL Calculated Osmolality 297 (280-300) Lactic Acid 1.2 (0.5-2.2) mmol/L Calcium 10.0 (8.6-10.8) mg/dL Total Bilirubin 0.3 (0.2-1.2) mg/dL AST 24 (5-34) Units/L ALT 31 (0-55) Units/L Alkaline Phosphatase 66 (38-126) Units/L Troponin I 0.20 H* (0-0.03) ng/mL B-Natriuretic Peptide (0-100) pg/mL Serum Total Protein 7.8 (6.0-8.3) g/dL Albumin 3.0 L (3.5-5.0) g/dL Globulin 4.8 H (2.4-3.5) g/dL Albumin/Globulin Ratio 0.6 L (1.1-2.2) 06/10/16 06/10/16 Range/Units 16:06 16:42 WBC (4.3-11.1) K/mcL RBC (4.19-5.50) M/mcL Hgb (12.9-16.9) g/dL Hct (37.5-50.1) % MCV (83.0-100.0) fL MCH (28.0-33.3) pg MCHC (31.6-35.5) g/dL RDW (11.5-14.5) % Plt Count (140-400) K/mcL MPV (9.4-12.4) fL Immature Gran % (0-4) % Seg Neutrophils % % Lymphocytes % % Monocytes % % Eosinophils % % Basophils % % Neutrophils # (1.6-8.9) K/mcL Lymphocytes # (0.6-4.6) K/mcL Monocytes # (0.0-1.3) K/mcL Eosinophils # (0.0-0.6) K/mcL Basophils # (0.0-0.2) K/mcL PT (9.4-12.1) Seconds INR APTT (26.0-36.0) Seconds ABG pH 7.31 L (7.32-7.45) pH Units ABG pCO2 74 H* (35-45) mmHg ABG pO2 57 L (85-104) mmHg ABG HCO3 37.3 H (21-27) mEQ/L ABG Total CO2 39.6 H (20-26) mEq/L ABG O2 Saturation 86 L (95-98) % ABG Base Excess 8.3 H (-2.0 to 3.0) mEq/L Blood Gas Modality BIPAP Inspired O2 35 % Sodium (136-145) mEq/L Potassium (3.5-4.5) mEq/L Chloride (98-109) mEq/L Carbon Dioxide (19-29) mEq/L BUN (8-26) mg/dL Creatinine (0.72-1.25) mg/dL Est GFR ( Amer) (> 60) Est GFR (Non-Af Amer) (> 60) BUN/Creatinine Ratio (6-26) Glucose (70-99) mg/dL Calculated Osmolality (280-300) Lactic Acid (0.5-2.2) mmol/L Calcium (8.6-10.8) mg/dL Total Bilirubin (0.2-1.2) mg/dL AST (5-34) Units/L ALT (0-55) Units/L Alkaline Phosphatase (38-126) Units/L Troponin I (0-0.03) ng/mL B-Natriuretic Peptide 794 H (0-100) pg/mL Serum Total Protein (6.0-8.3) g/dL Albumin (3.5-5.0) g/dL Globulin (2.4-3.5) g/dL Albumin/Globulin Ratio (1.1-2.2) - Radiology Data Radiology results reviewed: Yes I reviewed the patient's radiology results. Chest X-Ray 06/10/16 15:14 IMPRESSION: Bibasilar airspace disease consistent with multilobar pneumonia. This is most prominent on the right. Moderate background emphysema is present. D/ / 06/10/2016 15:41:15 Alden Herbert MD / kirill Interpreting Provider: Alden Herbert MD - EKG Data EKG attestation: Yes I reviewed and interpreted this EKG. EKG shows normal: Reports: sinus rhythm Rate: Reports: tachycardia Rhythm: Reports: NSR Critical Care Time Total Critical Care Time: 60 Attestation: Critical care performed: Time is exclusive of separately billable procedures. Time includes: direct patient care, patient reassessment, coordination of patient care, interpretation of data (laboratory data, radiology data, and respiratory data), review of patient's medical records, medical consultation and documentation of patient care. Procedures included in critical care time: Procedures excluded from critical care time:
--- NOTE | 2016-06-10 21:28 | Internal Med History&Physical ---
Date of Encounter: 06/10/16 Time of Encounter: 22:00 Assessment and Plan (1) Sepsis Status: Acute . Qualifiers: Sepsis type: sepsis due to unspecified organism Qualified Code(s): A41.9 - Sepsis, unspecified organism (2) SIRS due to infectious process with acute organ dysfunction Status: Acute . (3) Acute on chronic respiratory failure with hypoxia and hypercapnia Status: Acute . (4) Demand ischemia of myocardium Status: Acute . (5) Elevated troponin I measurement Status: Acute . (6) Non-ST elevation myocardial infarction (NSTEMI) due to mismatch of myocardial oxygen supply and demand Status: Acute . (7) Dependence on continuous supplemental oxygen Status: Acute . (8) Acute exacerbation of chronic obstructive pulmonary disease (COPD) Status: Acute . (9) Hypertension Status: Chronic . Qualifiers: Hypertension type: essential hypertension Qualified Code(s): I10 - Essential (primary) hypertension (10) CAD (coronary artery disease) Status: Chronic . Qualifiers: Coronary Disease-Associated Artery/Lesion type: [place] artery [place] vs. transplanted heart: [place] heart Associated angina: without angina Qualified Code(s): I25.10 - Atherosclerotic heart disease of [place] coronary artery without angina pectoris (11) HCAP (healthcare-associated pneumonia) Status: Acute . (12) Hypothyroidism Status: Chronic . Qualifiers: Hypothyroidism type: acquired Qualified Code(s): E03.9 - Hypothyroidism, unspecified Internal Medicine - H&P: HPI Chief complaint: Progressive difficulty in breathing Admitted From: Hospital to Hospital Transfer (Hospital transfer from [facility]) Plans for Post Hospital Care: Home History of present illness: Mr. Reeder is a 66 year old male with history significant for stage IV COPD/ emphysema/interstitial lung disease, chronic hypercapnic respiratory failure continuous oxygen dependent, anxiety disoder, h/o ventilator dependent respiratory failure, CAD/PTCA stents/AMI, h/o diastolic CHF, retention, dyslipidemia, postraumatic osteoarthritis, COPD/vitamin D deficiency, idiopathic peripheral neuropathy, chronic pain syndrome, impaired hearing, dermatophytosis, GERD/PUD/multiple DU/Richardson's esophagus, h/o C. difficile enterocolitis, CKD III, hypothyroid, and use of systemic steroids, iron deficiency , PUD/D, protein caloric malnutrition/BMI less than 20, old CVA, cachexia, nicotine dependency. Patient is admitted with the complaints of difficulty breathing. Findings demonstrated acute on chronic hypercapnic hypoxic respiratory failure in the setting of COPD exacerbation/chronic respiratory failure-emphysema and associated multilobar, healthcare related pneumonia. Demand ischemia or myocardial hypoperfusion and depressed oxygenation troponin elevation noted. WES/CKD, hyperkalemia, hypoalbuminemia with modest electrolyte and metabolic derangements noted. Systemic inflammatory response and sepsis criteria met at the time of admission. Workup and treatments will proceed comprehensively. Past Med Surg Social Fam HX - Past Medical History Source: old records reviewed Medical history: arthritis, cardiomyopathy (2016 echocardiogram demonstrated normal left ventricular chamber size wall thickness and systolic function. LVEF 60%. Severely dilated right ventricle with moderately severe right ventricular hypokinesis. Flattening of right intraventricular septum consistent with right ventricular pressure overload. Moderately severe right dilated atrium. Left atrium normal in size. Valvular function not assessed.), CHF, COPD, coronary artery disease, CVA, GERD, hyperlipidemia, hypertension, myocardial infarction Psychiatric history: anxiety, other - Past Surgical History Surgical History: angioplasty/stent, other - Social History Smoking Status: Former smoker Packs per day: ~40pk-yrs Smokeless Tobacco Status: No Alcohol use: none Drug use: none Occupational status: unemployed Current living situation: Home, With Family Activity Level: Independent ambulation, Mostly sedentary Recent Out of Country Travel Within the Last 8 Weeks: No Exposure or Possible Exposure to Illness During Travel: No - Family History Father Adopted: No Family Member Ethnicity: Non- Living Status: Hx Family Cardiac Disorders: Yes Hx Family Respiratory Disorders: Yes Hx Family Cancer: Yes Internal Medicine - H&P: Meds Aspirin 81 mg PO DAILY 12/12/14 [History] Clopidogrel [Plavix] 75 mg PO DAILY 12/12/14 [History] Cyanocobalamin (B-12) [Vitamin B12] 1,000 mcg PO DAILY #30 tablet 03/14/16 [Rx] Folic Acid 1 mg PO DAILY #30 tablet 03/14/16 [Rx] Acetaminophen [Tylenol] 650 mg PO Q6HR PRN 04/26/16 [History] Albuterol Neb [Proventil Neb] 2.5 mg IH QID PRN 04/26/16 [History] Budesonide/Formoterol 160/4.5 [Symbicort 160/4.5] 2 puff IH BIDR 04/26/16 [ History] Cetirizine HCl [Zyrtec] 10 mg PO DAILY 04/26/16 [History] Fluticasone Propionate Nasal [Flonase] 50 mcg NS BID 04/26/16 [History] Furosemide [Lasix] 30 mg PO DAILY 04/26/16 [History] Ipratropium [place] 1 spray NS BID 04/26/16 [History] Ipratropium/Albuterol Neb [Duoneb] 3 ml IH Q6H PRN 04/26/16 [History] Isosorbide MONOnitrate (24 HR) [Imdur] 60 mg PO DAILY 04/26/16 [History] LORazepam [Ativan] 0.5 mg PO BID 04/26/16 [History] LORazepam [Ativan] 0.5 mg PO HS PRN 04/26/16 [History] Loratadine [Allergy Relief] 10 mg PO DAILY 04/26/16 [History] Phenylephrine HCl/Hard Fat [Shayy-Med] 1 each RC HS PRN 04/26/16 [History] Ranitidine HCl [Zantac] 150 mg PO BID 04/26/16 [History] Simvastatin [Zocor] 40 mg PO HS 04/26/16 [History] Losartan [Cozaar] 25 mg PO DAILY 06/10/16 [History] Metoprolol XL (24 HR) Succ [Toprol Xl] 50 mg PO DAILY 06/10/16 [History] Diltiazem CD (24hr) [Cardizem CD] 120 mg PO BID #30 cap.er.24h 06/17/16 [Rx] Levofloxacin [Levaquin] 750 mg PO DAILY #3 tablet 06/17/16 [Rx] PredniSONE 40 mg PO DAILY 3 Days 06/17/16 [Rx] Allergies Tetracycline Allergy (Verified 03/10/16 06:33) Hives codeine Adverse Reaction (Verified 03/10/16 06:33) Headache All Systems PM: A 10-system review of systems was performed and is negative for pertinent findings except as documented above in the HPI. - Constitutional Constitutional: as per HPI, malaise, weakness, other, no chills, no fever(s), no night sweats - EENT Eyes: blurry vision, no change in vision, no discharge, no pain, no photophobia Ears: as per HPI, no ear discharge, no ear pain, no tinnitus Nose, mouth and throat: as per HPI, nasal congestion, no dysphagia, no nasal discharge, no neck pain, no sore throat - Cardiovascular Cardiovascular ROS IM: as per HPI, other, no chest pain, no diaphoresis, no dyspnea, no lightheadedness, no palpitations, no syncope - Respiratory Respiratory: as per HPI, cough, dyspnea, dyspnea on exertion, wheezing, chest congestion, other, no hemoptysis, no excessive phlegm production - Constitutional Vitals: Temp Pulse Resp BP Pulse Ox 97.6 F 103 18 129/68 96 06/10/16 15:02 06/10/16 19:53 06/10/16 20:35 06/10/16 20:35 06/10/16 19:53 Vital Signs Temp Pulse Resp BP Pulse Ox 06/10/16 20:35 18 129/68 06/10/16 19:53 103 28 119/66 96 06/10/16 18:00 107 30 135/64 95 06/10/16 16:32 110 20 132/72 93 L 06/10/16 15:33 30 99 06/10/16 15:15 22 100 06/10/16 15:02 97.6 F 106 24 155/66 86 L Intake and Output 06/10/16 06/10/16 06/10/16 07:59 15:59 23:59 Intake Total 100 / 100 Balance 100 / 100 Intake: IV Fluids 100 / 100 Zosyn 3.375 GM In 100 / 100 Dextrose 5% (Minibag+) 100 ML 100 ML @ 25 mls/hr IVPB ONCE ONE Rx#: [id number] Other: Weight 53 kg Patient Weight 06/10/16 23:59 Weight 53 kg General appearance: Present: mild distress, A&O X 3, answers questions appropriately - Head Head exam: Present: atraumatic, normocephalic - Eye Eye exam: Present: EOMI, PERRL, conjuntiva pink, sclera anicteric Pupils: Present: normal accommodation, PERRL - ENT ENT exam: Present: mucous membranes moist, normal oropharynx - Neck Neck exam general surgery: Present: supple, trachea midline. Absent: lymphadenopathy - Respiratory Respiratory exam: Present: decreased breath sounds, rhonchi, wheezes. Absent: accessory muscle use, CTAB, rales, stridor - Cardiovascular Cardiovascular exam: Present: distant heart sounds, RRR, +S1, +S2. Absent: diastolic murmur, gallop, rubs, systolic murmur - GI/Abdominal GI/Abdominal exam: Present: normal bowel sounds, soft, no peritoneal signs. Absent: distended, tenderness - Extremities Exam Extremities exam: Present: warm, radial pulses palpable and symetrical. Absent : calf tenderness, cyanotic, pedal edema - Neurological Exam Neurological exam: Present: alert, altered, CN II-XII intact, oriented X3, no focal deficits. Absent: pronater drift, facial droop, speech deficit - Psychiatric Psychiatric exam: Present: normal affect, normal mood - Skin Skin exam: Present: dry, intact Internal Med - H&P Results - Labs CBC & Chem 7: 06/17/16 10:05 06/17/16 10:05 Labs: Short CBC 06/10/16 Range/Units 16:06 WBC 30.8 H* (4.3-11.1) K/mcL Hgb 12.6 L (12.9-16.9) g/dL Hct 40.9 (37.5-50.1) % Plt Count 320 (140-400) K/mcL Neutrophils # 28.9 H (1.6-8.9) K/mcL BMP 06/10/16 Range/Units 16:06 Sodium 134 L (136-145) mEq/L Potassium 5.8 H (3.5-4.5) mEq/L Chloride 95 L (98-109) mEq/L Carbon Dioxide 29 (19-29) mEq/L BUN 58 H (8-26) mg/dL Creatinine 1.58 H (0.72-1.25) mg/dL Glucose 155 H (70-99) mg/dL Calcium 10.0 (8.6-10.8) mg/dL Cardiac Enzymes 06/10/16 Range/Units 16:06 Troponin I 0.20 H* (0-0.03) ng/mL Liver Function 06/10/16 Range/Units 16:06 Total Bilirubin 0.3 (0.2-1.2) mg/dL AST 24 (5-34) Units/L ALT 31 (0-55) Units/L Alkaline Phosphatase 66 (38-126) Units/L Albumin 3.0 L (3.5-5.0) g/dL 06/10/16 06/10/16 14:13 16:42 ABG pH 7.25 L 7.31 L ABG pCO2 89 H* 74 H* ABG pO2 165 H 57 L ABG HCO3 39.0 H 37.3 H ABG Total CO2 41.7 H 39.6 H ABG O2 Saturation 99 H 86 L ABG Base Excess 8.3 H 8.3 H Abnormal lab results WBC 30.8 K/mcL (4.3-11.1) H* 06/10/16 16:06 Hgb 12.6 g/dL (12.9-16.9) L 06/10/16 16:06 MCHC 30.8 g/dL (31.6-35.5) L 06/10/16 16:06 RDW 18.0 % (11.5-14.5) H 06/10/16 16:06 Neutrophils # 28.9 K/mcL (1.6-8.9) H 06/10/16 16:06 Lymphocytes # 0.3 K/mcL (0.6-4.6) L 06/10/16 16:06 PT 12.2 Seconds (9.4-12.1) H 06/10/16 16:06 ABG pH 7.31 pH Units (7.32-7.45) L 06/10/16 16:42 ABG pCO2 74 mmHg (35-45) H* 06/10/16 16:42 ABG pO2 57 mmHg (85-104) L 06/10/16 16:42 ABG HCO3 37.3 mEQ/L (21-27) H 06/10/16 16:42 ABG Total CO2 39.6 mEq/L (20-26) H 06/10/16 16:42 ABG O2 Saturation 86 % (95-98) L 06/10/16 16:42 ABG Base Excess 8.3 mEq/L (-2.0 to 3.0) H 06/10/16 16:42 Sodium 134 mEq/L (136-145) L 06/10/16 16:06 Potassium 5.8 mEq/L (3.5-4.5) H 06/10/16 16:06 Chloride 95 mEq/L (98-109) L 06/10/16 16:06 BUN 58 mg/dL (8-26) H 06/10/16 16:06 Creatinine 1.58 mg/dL (0.72-1.25) H 06/10/16 16:06 Est GFR ( Amer) 53 (> 60) L 06/10/16 16:06 Est GFR (Non-Af Amer) 44 (> 60) L 06/10/16 16:06 BUN/Creatinine Ratio 37 (6-26) H 06/10/16 16:06 Glucose 155 mg/dL (70-99) H 06/10/16 16:06 Troponin I 0.20 ng/mL (0-0.03) H* 06/10/16 16:06 B-Natriuretic Peptide 794 pg/mL (0-100) H 06/10/16 16:06 Albumin 3.0 g/dL (3.5-5.0) L 06/10/16 16:06 Globulin 4.8 g/dL (2.4-3.5) H 06/10/16 16:06 Albumin/Globulin Ratio 0.6 (1.1-2.2) L 06/10/16 16:06 Laboratory Results WBC 30.8 K/mcL (4.3-11.1) H* 06/10/16 16:06 RBC 4.42 M/mcL (4.19-5.50) 06/10/16 16:06 Hgb 12.6 g/dL (12.9-16.9) L 06/10/16 16:06 Hct 40.9 % (37.5-50.1) 06/10/16 16:06 MCV 92.5 fL (83.0-100.0) 06/10/16 16:06 MCH 28.5 pg (28.0-33.3) 06/10/16 16:06 MCHC 30.8 g/dL (31.6-35.5) L 06/10/16 16:06 RDW 18.0 % (11.5-14.5) H 06/10/16 16:06 Plt Count 320 K/mcL (140-400) 06/10/16 16:06 MPV 9.4 fL (9.4-12.4) 06/10/16 16:06 Immature Gran % 1.2 % (0-4) 06/10/16 16:06 Seg Neutrophils % 93.9 % 06/10/16 16:06 Lymphocytes % 0.8 % 06/10/16 16:06 Monocytes % 3.9 % 06/10/16 16:06 Eosinophils % 0.0 % 06/10/16 16:06 Basophils % 0.2 % 06/10/16 16:06 Neutrophils # 28.9 K/mcL (1.6-8.9) H 06/10/16 16:06 Lymphocytes # 0.3 K/mcL (0.6-4.6) L 06/10/16 16:06 Monocytes # 1.2 K/mcL (0.0-1.3) 06/10/16 16:06 Eosinophils # 0.0 K/mcL (0.0-0.6) 06/10/16 16:06 Basophils # 0.1 K/mcL (0.0-0.2) 06/10/16 16:06 PT 12.2 Seconds (9.4-12.1) H 06/10/16 16:06 INR 1.1 06/10/16 16:06 APTT 26.2 Seconds (26.0-36.0) 06/10/16 16:06 ABG pH 7.31 pH Units (7.32-7.45) L 06/10/16 16:42 ABG pCO2 74 mmHg (35-45) H* 06/10/16 16:42 ABG pO2 57 mmHg (85-104) L 06/10/16 16:42 ABG HCO3 37.3 mEQ/L (21-27) H 06/10/16 16:42 ABG Total CO2 39.6 mEq/L (20-26) H 06/10/16 16:42 ABG O2 Saturation 86 % (95-98) L 06/10/16 16:42 ABG Base Excess 8.3 mEq/L (-2.0 to 3.0) H 06/10/16 16:42 Blood Gas Modality BIPAP 06/10/16 16:42 Inspired O2 35 % 06/10/16 16:42 Sodium 134 mEq/L (136-145) L 06/10/16 16:06 Potassium 5.8 mEq/L (3.5-4.5) H 06/10/16 16:06 Chloride 95 mEq/L (98-109) L 06/10/16 16:06 Carbon Dioxide 29 mEq/L (19-29) 06/10/16 16:06 BUN 58 mg/dL (8-26) H 06/10/16 16:06 Creatinine 1.58 mg/dL (0.72-1.25) H 06/10/16 16:06 Est GFR ( Amer) 53 (> 60) L 06/10/16 16:06 Est GFR (Non-Af Amer) 44 (> 60) L 06/10/16 16:06 BUN/Creatinine Ratio 37 (6-26) H 06/10/16 16:06 Glucose 155 mg/dL (70-99) H 06/10/16 16:06 Calculated Osmolality 297 (280-300) 06/10/16 16:06 Lactic Acid 1.2 mmol/L (0.5-2.2) 06/10/16 16:06 Calcium 10.0 mg/dL (8.6-10.8) 06/10/16 16:06 Total Bilirubin 0.3 mg/dL (0.2-1.2) 06/10/16 16:06 AST 24 Units/L (5-34) 06/10/16 16:06 ALT 31 Units/L (0-55) 06/10/16 16:06 Alkaline Phosphatase 66 Units/L (38-126) 06/10/16 16:06 Troponin I 0.20 ng/mL (0-0.03) H* 06/10/16 16:06 B-Natriuretic Peptide 794 pg/mL (0-100) H 06/10/16 16:06 Serum Total Protein 7.8 g/dL (6.0-8.3) 06/10/16 16:06 Albumin 3.0 g/dL (3.5-5.0) L 06/10/16 16:06 Globulin 4.8 g/dL (2.4-3.5) H 06/10/16 16:06 Albumin/Globulin Ratio 0.6 (1.1-2.2) L 06/10/16 16:06 Impressions Chest X-Ray 06/10/16 15:14 IMPRESSION: Bibasilar airspace disease consistent with multilobar pneumonia. This is most prominent on the right. Moderate background emphysema is present. D/ / 06/10/2016 15:41:15 Alden Herbert MD / kirill Interpreting Provider: Alden Herbert MD - Attending Attestation My signature below is to certify that this patient is under my care and that I, or nurse practitioner, or a physician's registered dental assistant, or Resident Physician working with me, has had a [id number] encounter with this patient. Allergies Tetracycline Allergy (Verified 03/10/16 06:33) Hives codeine Adverse Reaction (Verified 03/10/16 06:33) Headache Home Medications Medication Instructions Recorded Confirmed Type Aspirin 81 mg PO DAILY 12/12/14 06/10/16 History Clopidogrel [Plavix] 75 mg PO DAILY 12/12/14 06/10/16 History Acetaminophen [Tylenol] 650 mg PO Q6HR PRN 04/26/16 06/10/16 History Albuterol Neb [Proventil Neb] 2.5 mg IH QID PRN 04/26/16 06/10/16 History Budesonide/Formoterol 160/4.5 2 puff IH BIDR 04/26/16 06/10/16 History [Symbicort 160/4.5] Cetirizine HCl [Zyrtec] 10 mg PO DAILY 04/26/16 06/10/16 History Famotidine [Pepcid] 20 mg PO BID 04/26/16 06/10/16 History Fluticasone Propionate Nasal 50 mcg NS BID 04/26/16 06/10/16 History [Flonase] Furosemide [Lasix] 30 mg PO DAILY 04/26/16 06/10/16 History Ipratropium [facility] [place] 1 spray NS BID 04/26/16 06/10/16 History Ipratropium/Albuterol Neb [Duoneb] 3 ml IH Q6H PRN 04/26/16 06/10/16 History Isosorbide MONOnitrate (24 HR) 60 mg PO DAILY 04/26/16 06/10/16 History [Imdur] LORazepam [Ativan] 0.5 mg PO BID 04/26/16 06/10/16 History LORazepam [Ativan] 0.5 mg PO HS PRN 04/26/16 06/10/16 History Loratadine [Allergy Relief] 10 mg PO DAILY 04/26/16 06/10/16 History Phenylephrine HCl/Hard Fat 1 each RC HS PRN 04/26/16 06/10/16 History [Shayy-Med] Ranitidine HCl [Zantac] 150 mg PO BID 04/26/16 06/10/16 History Simvastatin [Zocor] 40 mg PO HS 04/26/16 06/10/16 History Losartan [Cozaar] 25 mg PO DAILY 06/10/16 06/10/16 History Metoprolol XL (24 HR) Succ [Toprol 50 mg PO DAILY 06/10/16 06/10/16 History XL] I & O 06/07/16 06/08/16 06/09/16 06/10/16 23:59 23:59 23:59 23:59 Intake Total 100 / 100 Balance 100 / 100 Weight 53 kg Intake: IV Fluids 100 / 100 Zosyn 3.375 GM In 100 / 100 Dextrose 5% (Minibag+) 100 ML 100 ML @ 25 mls/hr IVPB ONCE ONE Rx#: [id number] Medications Discontinued Medications Albuterol/Ipratropium (Duoneb) Confirm Administered Dose 3 ml .ROUTE .STK-MED ONE Stop: 06/10/16 15:13 Albuterol/Ipratropium (Duoneb) 9 ml IH ONCE ONE PRN Reason: Protocol Stop: 06/10/16 15:22 Last Admin: 06/10/16 15:15 Dose: 9 ml Piperacillin Sod/Tazobactam (Sod 3.375 gm/ Dextrose) 100 mls @ 25 mls/hr IVPB ONCE ONE PRN Reason: Protocol Stop: 06/10/16 20:50 Last Infusion: 06/10/16 18:36 Dose: 0 mls/hr Vancomycin HCl 1,000 mg/ (Dextrose) 250 mls @ 167 mls/hr IVPB ONCE ONE PRN Reason: Protocol Stop: 06/10/16 18:20 Last Admin: 06/10/16 18:35 Dose: 167 mls/hr Sodium Chloride (0.9 % Sodium Chloride) 500 mls @ 0 mls/hr IV BOLUS ONE PRN Reason: Wide Open Stop: 06/10/16 16:57 Last Admin: 06/10/16 17:57 Dose: 225 mls/hr Nursing Notes 06/10/16 17:07 Transport Report by Peace Louise Date: 06/10/16 Transport Method: Portable Tetracycline Allergy (Verified 03/10/16 06:33) Hives codeine Adverse Reaction (Verified 03/10/16 06:33) Headache Resuscitation Status 06/10/16 15:13 ECG 12 lead ECG [ECG] Stat Mode Of Transportation: Portable Reason For Exam: shortness of breath Exam Performed At:: [facility] Oxygen: Mental Status: Fall Risk: Isolation: Nurse Required for Transport: No ___ Yes Limb Restrictions: No ___ Yes Behavioral issue/Risk for Elopement: No ___ Yes Telemetry Room Notification: Destination: MRI XRAY STRESS ULTRASOUND CT DIALYSIS ENDO OTHER: Depart Time: Nurse: Transporter: Arrive Time: Received by: ___ Return Time: Nurse: Transporter: ] Initialized on 06/10/16 17:07 - END OF NOTE Orders 06/10/16 14:13 ABG [Arterial Blood Gas] Stat Comment: Specimen: Send someone from the department to collect 06/10/16 15:12 Ipratropium/Albuterol Neb [Duoneb] 3 ml .ROUTE .STK-MED ONE 06/10/16 15:13 ECG 12 lead ECG [ECG] Stat Mode Of Transportation: Portable Reason For Exam: shortness of breath Exam Performed At:: [facility] 06/10/16 15:14 XR chest 1V portable [XR] Stat Mode Of Transportation: Portable Reason For Exam: shortness of breath Exam Performed At:: [facility] Additional Notes/Special Instructions: 23....NBV 06/10/16 15:15 12 lead ECG assessment [RC] NOW 06/10/16 15:21 Ipratropium/Albuterol Neb [Duoneb] 9 ml IH ONCE ONE 06/10/16 15:48 BIPAP [RC] .ONCE BIPAP/CPAP On/Off Times [RC] ONCE RT has an order or consult [RC] NOW 06/10/16 16:00 Culture,Blood [BC] Stat Comment: [place] Source: Peripheral Venipuncture Quantity: 1 Specimen: Send someone from the department to collect Specimen Description: 06/10/16 16:06 Activated Partial Thrombo Time [COAG] Stat Comment: Specimen: Send someone from the department to collect B-Type Natriuretic Peptide Stat Comment: Specimen: Send someone from the department to collect Complete Blood Count [HEME] Stat Comment: Specimen: Send someone from the department to collect Comprehensive Metabolic Panel Stat Comment: Specimen: Send someone from the department to collect Culture,Blood,Additional [BC] Stat Comment: [place] Source: Peripheral Venipuncture Quantity: 2 Specimen: Send someone from the department to collect Specimen Description: Lactic Acid ([facility] Only) Stat Comment: Specimen: Send someone from the department to collect Prothrombin Time INR [COAG] Stat Comment: Specimen: Send someone from the department to collect Troponin I Stat Comment: Specimen: Send someone from the department to collect 06/10/16 16:42 ABG [Arterial Blood Gas] Stat Comment: Specimen: Send someone from the department to collect 06/10/16 16:51 Piperacillin/Tazobactam [Zosyn] 3.375 gm D5% in Water (Mini-Bag+) [Dextrose 5 % (Minibag+) 100 ML] 100 ml IVPB ONCE Vancomycin [Vancocin] 1,000 mg D5% in Water [Dextrose 5%] 250 ml IVPB ONCE 06/10/16 16:56 0.9 % Sodium Chloride 500 ml IV BOLUS 06/10/16 17:[address] Stat Comment: Reason for Visit: pneumonia Patient Problems (Last Updated 06/10/16 @ 17:39 by Tano Uriostegui MD) Healthcare-associated pneumonia (Acute) Vital Signs Temp Pulse Resp BP Pulse Ox 06/10/16 20:35 18 129/68 06/10/16 19:53 103 28 119/66 96 06/10/16 18:00 107 30 135/64 95 06/10/16 16:32 110 20 132/72 93 L 06/10/16 15:33 30 99 06/10/16 15:15 22 100 06/10/16 15:02 97.6 F 106 24 155/66 86 L Laboratory Results 06/10/16 06/10/16 06/10/16 Range/Units 14:13 16:06 16:06 WBC 30.8 H* (4.3-11.1) K/mcL RBC 4.42 (4.19-5.50) M/mcL Hgb 12.6 L (12.9-16.9) g/dL Hct 40.9 (37.5-50.1) % MCV 92.5 (83.0-100.0) fL MCH 28.5 (28.0-33.3) pg MCHC 30.8 L (31.6-35.5) g/dL RDW 18.0 H (11.5-14.5) % Plt Count 320 (140-400) K/mcL MPV 9.4 (9.4-12.4) fL Immature Gran % 1.2 (0-4) % Seg Neutrophils % 93.9 % Lymphocytes % 0.8 % Monocytes % 3.9 % Eosinophils % 0.0 % Basophils % 0.2 % Neutrophils # 28.9 H (1.6-8.9) K/mcL Lymphocytes # 0.3 L (0.6-4.6) K/mcL Monocytes # 1.2 (0.0-1.3) K/mcL Eosinophils # 0.0 (0.0-0.6) K/mcL Basophils # 0.1 (0.0-0.2) K/mcL PT 12.2 H (9.4-12.1) Seconds INR 1.1 APTT 26.2 (26.0-36.0) Seconds ABG pH 7.25 L (7.32-7.45) pH Units ABG pCO2 89 H* (35-45) mmHg ABG pO2 165 H (85-104) mmHg ABG HCO3 39.0 H (21-27) mEQ/L ABG Total CO2 41.7 H (20-26) mEq/L ABG O2 Saturation 99 H (95-98) % ABG Base Excess 8.3 H (-2.0 to 3.0) mEq/L Blood Gas Modality NRB MASK Inspired O2 100 % Sodium (136-145) mEq/L Potassium (3.5-4.5) mEq/L Chloride (98-109) mEq/L Carbon Dioxide (19-29) mEq/L BUN (8-26) mg/dL Creatinine (0.72-1.25) mg/dL Est GFR ( Amer) (> 60) Est GFR (Non-Af Amer) (> 60) BUN/Creatinine Ratio (6-26) Glucose (70-99) mg/dL Calculated Osmolality (280-300) Lactic Acid (0.5-2.2) mmol/L Calcium (8.6-10.8) mg/dL Total Bilirubin (0.2-1.2) mg/dL AST (5-34) Units/L ALT (0-55) Units/L Alkaline Phosphatase (38-126) Units/L Troponin I (0-0.03) ng/mL B-Natriuretic Peptide (0-100) pg/mL Serum Total Protein (6.0-8.3) g/dL Albumin (3.5-5.0) g/dL Globulin (2.4-3.5) g/dL Albumin/Globulin Ratio (1.1-2.2) 06/10/16 06/10/16 06/10/16 Range/Units 16:06 16:06 16:06 WBC (4.3-11.1) K/mcL RBC (4.19-5.50) M/mcL Hgb (12.9-16.9) g/dL Hct (37.5-50.1) % MCV (83.0-100.0) fL MCH (28.0-33.3) pg MCHC (31.6-35.5) g/dL RDW (11.5-14.5) % Plt Count (140-400) K/mcL MPV (9.4-12.4) fL Immature Gran % (0-4) % Seg Neutrophils % % Lymphocytes % % Monocytes % % Eosinophils % % Basophils % % Neutrophils # (1.6-8.9) K/mcL Lymphocytes # (0.6-4.6) K/mcL Monocytes # (0.0-1.3) K/mcL Eosinophils # (0.0-0.6) K/mcL Basophils # (0.0-0.2) K/mcL PT (9.4-12.1) Seconds INR APTT (26.0-36.0) Seconds ABG pH (7.32-7.45) pH Units ABG pCO2 (35-45) mmHg ABG pO2 (85-104) mmHg ABG HCO3 (21-27) mEQ/L ABG Total CO2 (20-26) mEq/L ABG O2 Saturation (95-98) % ABG Base Excess (-2.0 to 3.0) mEq/L Blood Gas Modality Inspired O2 % Sodium 134 L (136-145) mEq/L Potassium 5.8 H (3.5-4.5) mEq/L Chloride 95 L (98-109) mEq/L Carbon Dioxide 29 (19-29) mEq/L BUN 58 H (8-26) mg/dL Creatinine 1.58 H (0.72-1.25) mg/dL Est GFR ( Amer) 53 L (> 60) Est GFR (Non-Af Amer) 44 L (> 60) BUN/Creatinine Ratio 37 H (6-26) Glucose 155 H (70-99) mg/dL Calculated Osmolality 297 (280-300) Lactic Acid 1.2 (0.5-2.2) mmol/L Calcium 10.0 (8.6-10.8) mg/dL Total Bilirubin 0.3 (0.2-1.2) mg/dL AST 24 (5-34) Units/L ALT 31 (0-55) Units/L Alkaline Phosphatase 66 (38-126) Units/L Troponin I 0.20 H* (0-0.03) ng/mL B-Natriuretic Peptide (0-100) pg/mL Serum Total Protein 7.8 (6.0-8.3) g/dL Albumin 3.0 L (3.5-5.0) g/dL Globulin 4.8 H (2.4-3.5) g/dL Albumin/Globulin Ratio 0.6 L (1.1-2.2) 06/10/16 06/10/16 Range/Units 16:06 16:42 WBC (4.3-11.1) K/mcL RBC (4.19-5.50) M/mcL Hgb (12.9-16.9) g/dL Hct (37.5-50.1) % MCV (83.0-100.0) fL MCH (28.0-33.3) pg MCHC (31.6-35.5) g/dL RDW (11.5-14.5) % Plt Count (140-400) K/mcL MPV (9.4-12.4) fL Immature Gran % (0-4) % Seg Neutrophils % % Lymphocytes % % Monocytes % % Eosinophils % % Basophils % % Neutrophils # (1.6-8.9) K/mcL Lymphocytes # (0.6-4.6) K/mcL Monocytes # (0.0-1.3) K/mcL Eosinophils # (0.0-0.6) K/mcL Basophils # (0.0-0.2) K/mcL PT (9.4-12.1) Seconds INR APTT (26.0-36.0) Seconds ABG pH 7.31 L (7.32-7.45) pH Units ABG pCO2 74 H* (35-45) mmHg ABG pO2 57 L (85-104) mmHg ABG HCO3 37.3 H (21-27) mEQ/L ABG Total CO2 39.6 H (20-26) mEq/L ABG O2 Saturation 86 L (95-98) % ABG Base Excess 8.3 H (-2.0 to 3.0) mEq/L Blood Gas Modality BIPAP Inspired O2 35 % Sodium (136-145) mEq/L Potassium (3.5-4.5) mEq/L Chloride (98-109) mEq/L Carbon Dioxide (19-29) mEq/L BUN (8-26) mg/dL Creatinine (0.72-1.25) mg/dL Est GFR ( Amer) (> 60) Est GFR (Non-Af Amer) (> 60) BUN/Creatinine Ratio (6-26) Glucose (70-99) mg/dL Calculated Osmolality (280-300) Lactic Acid (0.5-2.2) mmol/L Calcium (8.6-10.8) mg/dL Total Bilirubin (0.2-1.2) mg/dL AST (5-34) Units/L ALT (0-55) Units/L Alkaline Phosphatase (38-126) Units/L Troponin I (0-0.03) ng/mL B-Natriuretic Peptide 794 H (0-100) pg/mL Serum Total Protein (6.0-8.3) g/dL Albumin (3.5-5.0) g/dL Globulin (2.4-3.5) g/dL Albumin/Globulin Ratio (1.1-2.2) Assessments/Treatments 12 lead ECG assessment Start: 06/10/16 15: 02 Freq: Status: Active Document 06/10/16 15:11 CRE (Rec: 06/10/16 15:16 CRE [id number]) EKG Time EKG Completed 15:11 EKG performed by edt EKG shown to and signed by uriostegui BIPAP/CPAP On/Off Times Start: 06/10/16 15: 48 Freq: ONCE Status: Active Document 06/10/16 15:33 NRB (Rec: 06/10/16 15:49 NRB [id number]) BIPAP/CPAP On/Off Times BIPAP/CPAP On Time 15:33 BIPAP Inspiratory Pressure (mm Hg) 14 BiPAP Expiratory Pressure (mm Hg) 6 BiPAP Rate 8 Cardiac monitoring Start: 06/10/16 15: 02 Freq: Status: Active Document 06/10/16 15:11 CRE (Rec: 06/10/16 15:16 CRE [id number]) Cardiac Monitoring Heart Rate 109 Monitoring Method Telemetry Rhythm Sinus Tachycardia Monitor Number 23 Memory Cleared Yes Critical Value Reporting Start: 06/10/16 16: 40 Freq: Status: Active Document 06/10/16 16:40 CMD (Rec: 06/10/16 16:40 CMD [id number]) Critical Values Reporting Test(s) and Results TROPONIN 0.20 Time Results Received 16:40 Lab Results Repeated Back Yes Provider Notified Yes Time Provider Contacted 16:40 Provider Name URIOSTEGUI Time Provider Responded 16:40 Number of Attempts to Reach Provider 1 Document 06/10/16 16:50 CRE (Rec: 06/10/16 16:51 CRE [id number]) Critical Values Reporting Test(s) and Results wbc 30.8 Time Results Received 16:50 Lab Results Repeated Back Yes Provider Notified Yes Time Provider Contacted 16:51 ED Discharge Assessment Start: 06/10/16 15: 02 Freq: Status: Active Document 06/10/16 20:35 CRE (Rec: 06/10/16 20:35 CRE [id number]) ED Discharge Assessment ED Discharge Disposition Admitted ED Condition on Discharge Fair Med Rec/Patient Pharmacy Completed? Yes Report given to Nurse Care transferred to (name/credentials) Ld Information relayed patient's care treatments medications given condition recent/anticipated changes Clinical Documentation Summary Provided Yes Pain Scale 0 Pain Scale Used Standard (1-10) Blood Pressure 129/68 Heart rate 101 Respiratory Rate 18 Oxygen Delivery Bipap Oxygen Saturation 96 Critical Care Minutes 0 ED Shortness of Breath Assessment Start: 06/10/16 15: 02 Freq: Status: Active Document 06/10/16 15:11 CRE (Rec: 06/10/16 15:16 CRE [id number]) Shortness of Breath Sepsis Infection Criteria Present suspected infection Sepsis SIRS Criteria RR > 20 rpm WBC > 12k or < 4k or bands > 10% HR > 90 bpm Sepsis Organ Dysfunction Criteria acute respiratory failure Present Sepsis Screen Severe Sepsis Risk Sepsis Action Taken provider notified Sepsis Name of Provider Notified Tano Uriostegui Symptoms/Complaint Shortness of Breath Cough Duration Constant Severity Moderate Context Recent Illness Known History COPD Congestive Heart Failure Improves With Oxygen Bronchodilators Worsens With Lying Flat Exertion Movement Coughing Treatment Prior to Arrival Oxygen Bronchodilator Respiratory Depth Shallow Effort Labored Short of Breath Accessory Muscle Use Abdominal Breathing Pattern Regular Bilateral Throughout Breath Sounds Expiratory Rhonchi Inspiratory Wheezing Expiratory Wheezing Level Of Consciousness Awake Alert Appropriate Patient Orientation Person Patient Behavior Fatigued Ability to Follow Directions Fair Impaired Cognition No Patient Rounding Start: 06/10/16 15: 02 Freq: Q30M Status: Active Document 06/10/16 15:11 CRE (Rec: 06/10/16 15:16 CRE [id number]) Patient Rounding Safety Call Light Within Reach Bed Position Low Bed Brake On Side Rails Up X2 Are the Floors Free From Trip Hazards? Yes Is the Room Free From Clutter? Yes Rounding Completed? Yes Patient Rounding Updated patient/family on Plan of Care Checked for Patient Positioning Patient Awake Document 06/10/16 15:32 CRE (Rec: 06/10/16 17:48 CRE [id number]) Patient Rounding Rounding Completed? Yes Document 06/10/16 17:48 CRE (Rec: 06/10/16 17:48 CRE [id number]) Patient Rounding Rounding Completed? Yes Document 06/10/16 17:48 CRE (Rec: 06/10/16 17:49 CRE [id number]) Patient Rounding Rounding Completed? Yes Document 06/10/16 17:49 CRE (Rec: 06/10/16 17:49 CRE [id number]) Patient Rounding Rounding Completed? Yes Document 06/10/16 18:00 CRE (Rec: 06/10/16 20:36 CRE [id number]) Patient Rounding Rounding Completed? Yes Document 06/10/16 20:36 CRE (Rec: 06/10/16 20:36 CRE [id number]) Patient Rounding Rounding Completed? Yes Document 06/10/16 20:36 CRE (Rec: 06/10/16 20:36 CRE [id number]) Patient Rounding Rounding Completed? Yes RT ABG's Start: 06/10/16 15: 24 Freq: Status: Active Document 06/10/16 15:13 NRB (Rec: 06/10/16 15:48 NRB [id number]) Arterial Blood Gasses Modified Wesley's Test Patient Unable to Perform Analysis Performed by RT No Location Right Radial Number Of Attempts 1 Oxygen Delivery Method Non-Rebreather FIO2 (%) 100 Complications No Held Till Bleeding Stopped Yes Pressure Bandage Applied No Critical Results Yes Time Received 15:28 Time Reported To Physician 15:28 Time Physician Returned Call 15:[address] uriostegui Orders Received place patient on bipap ABG Charge* Yes Document 06/10/16 16:42 NRB (Rec: 06/10/16 17:04 NRB [place] [id number]) Arterial Blood Gasses Modified Wesley's Test Patient Unable to Perform Location Right Radial Number Of Attempts 1 Oxygen Delivery Method BiPAP BiPAP Mode Setting Spontaneous/Timed BIPAP Inspiratory Pressure (mm Hg) 14 BiPAP Expiratory Pressure (mm Hg) 6 FIO2 (%) 35 Complications No Held Till Bleeding Stopped Yes Pressure Bandage Applied No Critical Results Yes Time Received 16:52 Time Reported To Physician 16:52 Time Physician Returned Call 16:[address] uriostegui Orders Received no new RT orders at this time ABG Charge* Yes Comment RT explained that arteriasl sample was a little mixed with venous blood causing O2 to read lower. RT BIPAP Start: 06/10/16 15: 45 Freq: Status: Active Document 06/10/16 15:33 NRB (Rec: 06/10/16 15:46 NRB [place] [id number]) Respiratory Therapy Pre Assessment SPO2 (95-100) 99 Heart rate 108 Respiratory Rate 30 Oxygen Delivery Method BiPAP FIO2 (%) 35 BiPAP Ventilatory Support Equipment ID [id number] Device Type V-60 BIPAP BIPAP Set Up Charge* Yes BIPAP/CPAP Spontaneous/Timed BIPAP/CPAP Delivery Device Facial BiPAP Mask BIPAP Set Rate 8 BIPAP Inspiratory Press. (mm Hg) 14 BIPAP/CPAP Exp. Press. (mm Hg) 6 BIPAP Inspiratory Time 1.00 FIO2 (%) 35 BIPAP/CPAP Tidal Volume (ml) 410 BIPAP/CPAP Actual RR 30 BIPAP/CPAP Mask Leak (ml) 72 Peak Inspiratory Pressure 14 BIPAP/CPAP Apnea Alarm 20 sec High Pressure Alarm 24 Low Pressure Alarm 2 Tolerating Good RT Respiratory Medication Delivery Start: 06/10/16 15: 24 Freq: Status: Active Document 06/10/16 15:15 NRB (Rec: 06/10/16 15:25 NRB [place] [id number]) Respiratory Therapy Pre Assessment SPO2 (95-100) 100 Heart rate 106 Respiratory Rate 22 Oxygen Delivery Method Non-Rebreather FIO2 (%) 100 Bilateral Throughout Breath Sounds Inspiratory Rhonchi Expiratory Wheezing Treatment Modality Nebulizer Therapy Respiratory Medications Duoneb Medication Delivery Device Mask Treatment Tolerance Good Cont. 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 No Mode of arrival EMS [facility] EMS Limitations no limitations Ebola Risk: Travel/Contact With Anyone No From Affected Area/s Has Patient Experienced Ebola Symptoms No Temperature (97.6 F-99.6 F) 97.6 F Pulse Rate 106 Respiratory Rate 24 Blood Pressure 155/66 O2 Sat by Pulse Oximetry (95-100) 86 L Oxygen Delivery Nasal Cannula Height 1.78 m Weight 53 kg Weight Measurement Method Estimated by Patient Pain Scale 7 Pain Scale Used Standard (1-10) Medical history CHF COPD coronary artery disease CVA GERD hyperlipidemia hypertension myocardial infarction Male surgical history angioplasty/stent other Additional surgical history PMH colonoscopy with polpectomy x3 cardiac stents Psychiatric history no psych history Smoking Status Former smoker Do you currently feel hopless, have No thoughts of self harm, or thoughts of harming others History of fall in last 14 days? No Influenza vaccine up to date Yes Pneumonia vaccine up to date Yes Tetanus UTD yes Father Adopted No Family Member Ethnicity Non- Family Member Living Status Hx Family Cardiac Disorders Yes Hx Family Respiratory Disorders Yes Hx Family Cancer Yes Vital Signs Assessment Start: 06/10/16 15: 02 Freq: Status: Active Document 06/10/16 16:32 CRE (Rec: 06/10/16 17:48 CRE [id number]) ED Vital Signs Pain Reported No Pain Reported Blood Pressure 132/72 Pulse Rate 110 Respiratory Rate 20 Pulse Oximetry (95-100) 93 L Oxygen Delivery Room Air Document 06/10/16 18:00 CRE (Rec: 06/10/16 18:18 CRE [id number]) ED Vital Signs Pain Reported No Pain Reported Blood Pressure 135/64 Pulse Rate 107 Respiratory Rate 30 Pulse Oximetry (95-100) 95 Oxygen Delivery Bipap Document 06/10/16 19:53 CRE (Rec: 06/10/16 20:03 CRE [id number]) ED Vital Signs Pain Reported No Pain Reported Blood Pressure 119/66 Pulse Rate 103 Respiratory Rate 28 Pulse Oximetry (95-100) 96 Oxygen Delivery Bipap Discharge Information ED Provider: Tano Uriostegui Status: Departed Time Seen by Provider: 06/10/16 15:08 Condition: Fair Triaged At: 06/10/16 15:02 Emergency Discharge Date/Time: 06/10/16 21:04 Emergency Discharge Disposition: Admitted As Inpatient Clinical Impression Healthcare-associated pneumonia Emergency Discharge Comment: Admit Intervention Last Done ED Shortness of Breath Assessment 06/10/16 15:11 Query Result Sepsis Infection Criteria Present suspected infection Sepsis SIRS Criteria RR > 20 rpm WBC HR > 90 bpm Sepsis Organ Dysfunction Criteria acute respiratory failure Present Sepsis Screen Severe Sepsis Risk Sepsis Action Taken provider notified Sepsis Name of Provider Notified Tano Uriostegui Shortness Of Breath Symptoms/Complaint Shortness of Breath Cough Shortness Of Breath Duration Constant Shortness Of Breath Severity Moderate Shortness Of Breath Context Recent Illness Shortness Of Breath Known History COPD Congestive Heart Failure Shortness Of Breath Improves With Oxygen Bronchodilators Shortness Of Breath Worsens With Lying Flat Exertion Movement Coughing Shortness Of Breath Treatments Prior to Oxygen Arrival Bronchodilator Respiratory Depth Shallow Respiratory Effort Labored Short of Breath Accessory Muscle Use Abdominal Breathing Respiratory Pattern Regular Bilateral Throughout -Breath Sounds Expiratory Rhonchi Inspiratory Wheezing Expiratory Wheezing Level Of Consciousness Awake Alert Appropriate Patient Orientation Person Patient Behavior Fatigued Ability to Follow Directions Fair Impaired Cognition No ED Discharge Assessment 06/10/16 20:35 Query Result ED Discharge Disposition Admitted ED Condition on Discharge Fair Med Rec/Patient Phamracy completed? Yes Report given to Nurse Care transferred to [facility] Information relayed patient's care treatments medications given condition recent/anticipated change Clinical Documentation Summary Provided Yes Severity scale (1-10) 0 Pain Scale Used Standard (1-10) Blood Pressure 129/68 Heart rate 101 Respiratory Rate 18 Oxygen Delivery Bipap Pulse Oximetry Reading 96 Critical Care Minutes 0 Observation Discharge Date/Time: Observation Discharge Disposition: Observation Discharge Comment: Instructions: Stand-Alone Forms: Prescriptions: Visit Report - Forms: - Referrals: Radiology Results Chest X-Ray 06/10/16 15:14
[2016-06-10] MEDS ORDERED: Nicotine 21 MG PATCH.TD24 TD PRN (22:36)
[2016-06-10] MEDS ORDERED: *HR* Morphine 2 MG/ML SYRINGE IVP PRN (22:36)
[2016-06-10] MEDS ORDERED: *HR* OxyCODONE Immed Rel 5 MG TABLET PO PRN (22:36)
[2016-06-10] MEDS ORDERED: *HR* Promethazine 25 MG/ML VIAL IVP PRN (22:36)
[2016-06-10] MEDS ORDERED: Naloxone 0.4 MG/ML INJ IVP PRN (22:36)
[2016-06-10] MEDS ORDERED: Albuterol 2.5 MG/3 ML NEBULIZER IH PRN (22:36)
[2016-06-10] MEDS ORDERED: Acetaminophen 325 MG TABLET PO PRN (22:36)
[2016-06-10] MEDS ORDERED: 0.9 % Sodium Chloride 1,000 ML IVC SCH (22:45)
[2016-06-10] MEDS ORDERED: *HR* LORazepam 0.5 MG TABLET PO PRN (22:47)
[2016-06-10] MEDS ORDERED: *HR* Heparin 5,000 UNIT/ML VIAL IVP ONE (22:49)
[2016-06-10] MEDS ORDERED: Nitroglycerin 0.4 MG TAB.SUBL SL PRN (22:49)
[2016-06-10] MEDS ORDERED: 0.9 % Sodium Chloride 500 ML IVC ONE (22:49)
[2016-06-10] MEDS ORDERED: *HR* Heparin 5,000 UNIT/ML VIAL IVP PRN ×2 (22:49)
[2016-06-10] MEDS ORDERED: Heparin 25,000 UNIT/500 ML D5W 25,000 UNIT/500 ML MLS IVC SCH (23:00)
[2016-06-10] MEDS ORDERED: Vancomycin 750 MG in D5% in Water 250 ML IVPB SCH (23:00)
[2016-06-10] MEDS: Acetylcysteine 10% 2 ML INHSOL IH SCH (23:52)
[2016-06-10] MEDS: Ipratropium/Albuterol Neb 3 ML IH SCH (23:52)
[2016-06-11] MEDS ORDERED: Piperacillin/Tazobactam 3.375 GM in D5% in Water (Mini-Bag+) 100 ML IVPB SCH
[2016-06-11 00:27] LABS: Hemoglobin 11.7 g/dL (12.9-16.9)
[2016-06-11 00:28] LABS: Basophils % 0.1 %; Lymphocytes # 0.3 K/mcL (0.6-4.6); Mean Corpuscular HGB Conc 30.8 g/dL (31.6-35.5); Mean Corpuscular Hemoglobin 28.3 pg (28.0-33.3); Mean Platelet Volume 9.4 fL (9.4-12.4); Monocytes # 0.9 K/mcL (0.0-1.3); Monocytes % 3.4 %; Neutrophils # 24.5 K/mcL (1.6-8.9); Platelet Count 280 K/mcL (140-400); Red Blood Count 4.13 M/mcL (4.19-5.50); Red Cell Distribution Width 18.4 % (11.5-14.5); Segmented Neutrophils % 94.5 %; VBG HCO3 35.9 mEq/L (21-27); VBG PH 7.3 pH Units (7.32-7.42)
[2016-06-11] MEDS: Pantoprazole 40 MG VIAL IVP SCH ×2 (00:29→09:06)
[2016-06-11 00:31] LABS: Ionized Calcium 1.27 mmol/L (1.15-1.35)
[2016-06-11 00:32] LABS: INR 1.2; Prothrombin Time 13.2 Seconds (9.4-12.1)
[2016-06-11 00:35] LABS: Activated Partial Thrombo Time 26.3 Seconds (26.0-36.0); Hemoglobin A1C 5.1 %
[2016-06-11 00:41] LABS: Alanine Aminotransferase 29 Units/L (0-55); Albumin 2.8 g/dL (3.5-5.0); Albumin/Globulin Ratio 0.6 (1.1-2.2); Alkaline Phosphatase 64 Units/L (38-126); Aspartate Amino Transferase 22 Units/L (5-34); BUN/Creatinine Ratio 44 (6-26); Bilirubin,Total 0.2 mg/dL (0.2-1.2); Blood Urea Nitrogen 53 mg/dL (8-26); Calcium 9.9 mg/dL (8.6-10.8); Carbon Dioxide 30 mEq/L (19-29); Chloride 96 mEq/L (98-109); Chol/HDL Ratio 1.8 (0-4.9); Cholesterol 153 mg/dL (< 200); Creatine Kinase 51 Units/L (30-200); Globulin 4.7 g/dL (2.4-3.5); Glucose 136 mg/dL (70-99); HDL Cholesterol 87 mg/dL (40-59); LDL Cholesterol,Calculated 55 mg/dL (0-99); Magnesium 2.6 mg/dL (1.6-2.6); Osmolality,Calculated 296 (280-300); Phosphorous 4.6 mg/dL (2.3-4.7); Potassium 5.8 mEq/L (3.5-4.5); Sodium 135 mEq/L (136-145); Total Protein 7.5 g/dL (6.0-8.3); Triglycerides 57 mg/dL (< 150); eGFR For African Americans > 60 (> 60); eGFR For Non-African Americans > 60 (> 60)
[2016-06-11 00:47] LABS: Toxic Granulation Present (Not Present); Toxic Vacuolation Present (Not Present)
[2016-06-11 00:48] LABS: Anisocytosis 1+ (Not Present)
[2016-06-11 01:03] LABS: Thyroid Stimulating Hormone 0.683 mcIU/mL (0.350-4.840)
[2016-06-11 02:17] LABS: Adenovirus Not Detected (Not Detect); Bordetella Pertussis Not Detected (Not Detect); Chlamydophila pneumoniae Not Detected (Not Detect); Coronavirus 229E Not Detected (Not Detect); Coronavirus HKU1 Not Detected (Not Detect); Coronavirus NL63 Not Detected (Not Detect); Coronavirus OC43 Not Detected (Not Detect); Human Metapneumovirus Not Detected (Not Detect); Human Rhinovirus/Enterovirus Not Detected (Not Detect); Influenza A Subtype 2009 H1 Not Detected (Not Detect); Influenza A Untypeable Not Detected (Not Detect); Influenza B Not Detected (Not Detect); Mycoplasma pneumoniae Not Detected (Not Detect); Parainfluenza Virus 1 Not Detected (Not Detect); Parainfluenza Virus 2 Not Detected (Not Detect); Parainfluenza Virus 3 Not Detected (Not Detect); Parainfluenza Virus 4 Not Detected (Not Detect); Respiratory Syncytial Virus Not Detected (Not Detect)
[2016-06-11] MEDS: Ipratropium/Albuterol Neb 3 ML IH SCH ×4 (03:54→23:03)
[2016-06-11] MEDS ORDERED: MethylPREDNISolone 40 MG/ML VIAL IVP SCH (06:00)
[2016-06-11] MEDS ORDERED: Bumetanide 1 MG/4 ML VIAL IVP STA (06:29)
[2016-06-11] MEDS ORDERED: 0.9 % Sodium Chloride 1,000 ML IVC SCH (06:30)
[2016-06-11] MEDS ORDERED: metOLazone 2.5 MG TABLET PO STA (06:30)
[2016-06-11] MEDS ORDERED: predniSONE 20 MG TABLET PO SCH (09:00)
[2016-06-11] MEDS: Folic Acid 1 MG TABLET PO SCH (09:05)
[2016-06-11] MEDS: Metoprolol XL (24 HR) Succ 50 MG TAB.ER.24H PO SCH (09:05)
[2016-06-11] MEDS: Aspirin 81 MG TAB.CHEW PO SCH (09:05)
[2016-06-11] MEDS: Loratadine 10 MG TABLET PO SCH (09:06)
[2016-06-11] MEDS: IPRATROPIUM BROMIDE NS SCH ×2 (09:06→20:09)
[2016-06-11] MEDS: *HR* LORazepam 0.5 MG TABLET PO SCH ×2 (09:06→20:09)
[2016-06-11] MEDS: Cyanocobalamin (B-12) 1,000 MCG TABLET PO SCH (09:06)
[2016-06-11] MEDS: Fluticasone Propionate Nasal 50 MCG/SPRAY BOTTLE NS SCH ×2 (09:15→20:08)
--- NOTE | 2016-06-11 09:17 | Internal Med Progress Note ---
Date of Encounter: 06/11/16 Time of Encounter: 09:15 - Assessment and plan (1) HCAP (healthcare-associated pneumonia) Current Visit: Yes Status: Acute Assessment and plan: Chest XRay reviewed independently- emphysematous changes with new right basilar opacities; [facility] unclear what [facility] he received [facility]. Will f/up blood cultures and continue IV Vancomycin and Zosyn and add IV Levaquin at this time; respiratory viral panel negative. Improving leukocytosis. Continue supportive care with IV hydration and supplemental O2 as needed. (2) Acute exacerbation of chronic obstructive pulmonary disease (COPD) Current Visit: Yes Status: Acute Assessment and plan: Patient is well-known to our service with multiple admissions for acute COPD. Currently still requiring BiPAP with intermittent high-flow nasal cannula O2; will increase IV steroids to 40mg Q8hrly; continue scheduled bronchodilators; repeat ABG in 6hours; supportive care; uptodate on immunizations; (3) Anxiety Current Visit: Yes Status: Chronic Assessment and plan: continue PRN benzodiazepine; (4) COPD (chronic obstructive pulmonary disease) Current Visit: Yes Status: Chronic Qualifiers: COPD type: emphysema Emphysema type: unspecified Qualified Code(s): J43.9 - Emphysema, unspecified (5) CHF (congestive heart failure) Current Visit: Yes Status: Chronic Assessment and plan: not noted to be in acute exacerbation; noted to have significant cor pulmonale and right ventricular dysfunction; had Cardiology evaluation previously and recommend to manage underlying COPD; continue beta-ivan and hold ARB due to hyperkalemia and nitrate for now; Qualifiers: Congestive heart failure type: diastolic Congestive heart failure chronicity: chronic Qualified Code(s): I50.32 - Chronic diastolic (congestive ) heart failure (6) Hypertension Current Visit: Yes Status: Chronic Qualifiers: Hypertension type: essential hypertension Qualified Code(s): I10 - Essential (primary) hypertension (7) Elevated troponin Current Visit: Yes Status: Acute Assessment and plan: has mild elevation of Troponin, likely related to COPD, Pneumonia and demand ischemia; less likely coronary event; will hold IV Heparin drip for now; continue Telemetry monitoring; (8) CAD (coronary artery disease) Current Visit: Yes Status: Chronic Qualifiers: Coronary Disease-Associated Artery/Lesion type: [place] artery [place] vs. transplanted heart: [place] heart Associated angina: without angina Qualified Code(s): I25.10 - Atherosclerotic heart disease of [place] coronary artery without angina pectoris (9) Acute on chronic respiratory failure with hypoxia and hypercapnia Current Visit: Yes Status: Acute Assessment and plan: On 2-3L/min [place] home O2 due to COPD, cor pulmonale; current acute respiratory failure due to COPD and Pneumonia; - Subjective Interval history: Has remained on BiPAP last night. Currently taken off BiPAP for breakfast, noted to be in some respiratory distress. Reports shortness of breath and productive cough. Improved right-sided chest pain. - Constitutional Vitals: Temp Pulse Resp BP Pulse Ox 97.8 F 111 32 133/74 99 06/11/16 07:09 06/11/16 07:09 06/11/16 07:09 06/11/16 07:09 06/11/16 07:09 General appearance: Present: mild distress, A&O X 3, answers questions appropriately - Respiratory Respiratory exam: Present: decreased breath sounds (Decreased air entry bilaterally), rhonchi (Mild intermittent rhonchi). Absent: accessory muscle use , rales, wheezes - Cardiovascular Cardiovascular exam: Present: RRR, +S1, +S2. Absent: diastolic murmur, gallop, rubs, systolic murmur - GI/Abdominal GI/Abdominal exam: Present: distended, normal bowel sounds, soft, no peritoneal signs. Absent: tenderness - Extremities Exam Extremities exam: Present: full ROM, warm, radial pulses palpable and symetrical. Absent: calf tenderness, cyanotic, pedal edema Internal Medicine: Result - Labs CBC & Chem 7: 06/11/16 00:12 06/11/16 00:12 Labs: Short CBC 06/11/16 Range/Units 00:12 WBC 25.9 H (4.3-11.1) K/mcL Hgb 11.7 L (12.9-16.9) g/dL Hct 38.0 (37.5-50.1) % Plt Count 280 (140-400) K/mcL Neutrophils # 24.5 H (1.6-8.9) K/mcL BMP 06/11/16 00:12 Sodium 135 L Potassium 5.8 H Chloride 96 L Carbon Dioxide 30 H BUN 53 H Creatinine 1.20 Glucose 136 H Calcium 9.9 Cardiac Enzymes 06/11/16 06/11/16 Range/Units 00:12 06:00 Troponin I 0.18 H* 0.13 H* (0-0.03) ng/mL Liver Function 06/11/16 Range/Units 00:12 Total Bilirubin 0.2 (0.2-1.2) mg/dL AST 22 (5-34) Units/L ALT 29 (0-55) Units/L Alkaline Phosphatase 64 (38-126) Units/L Albumin 2.8 L (3.5-5.0) g/dL - ABG Interpretation ABG results: ABG ABG pH 7.31 pH Units (7.32-7.45) L 06/10/16 16:42 ABG pCO2 74 mmHg (35-45) H* 06/10/16 16:42 ABG pO2 57 mmHg (85-104) L 06/10/16 16:42 ABG O2 Saturation 86 % (95-98) L 06/10/16 16:42 PT/INR, D-dimer PT 13.2 Seconds (9.4-12.1) H 06/11/16 00:12 Consult Discharge Plan - Plan [facility]errals: [facility] [Primary Care Provider] -
[2016-06-11] MEDS ORDERED: Levofloxacin 750 MG/150 ML 750 MG/150 ML BAG IVPB SCH (10:00)
[2016-06-11] MEDS: Acetylcysteine 10% 2 ML INHSOL IH SCH (10:23)
[2016-06-11] MEDS: MethylPREDNISolone 40 MG/ML VIAL IVP SCH ×2 (11:07→16:57)
[2016-06-11 12:30] LABS: ABG Base Excess 8.4 mEq/L (-2.0 to 3.0); ABG HCO3 34.9 mEQ/L (21-27); ABG Oxygen Saturation 95 % (95-98); ABG PCO2 59 mmHg (35-45); ABG PH 7.38 pH Units (7.32-7.45); ABG PO2 76 mmHg (85-104); ABG TCO2 36.7 mEq/L (20-26)
[2016-06-11 12:31] LABS: Blood Gas FiO2 35 %
[2016-06-11] MEDS: Piperacillin/Tazobactam 3.375 GM in D5% in Water (Mini-Bag+) 100 ML IVPB SCH ×2 (15:49→23:43)
[2016-06-11] MEDS ORDERED: Vancomycin 750 MG in D5% in Water 250 ML IVPB SCH (16:00)
[2016-06-11] MEDS ORDERED: Furosemide 20 MG TABLET PO ONE (18:00)
[2016-06-11] MEDS ORDERED: methylPREDNISolone 125 MG/2 ML VIAL IVP ONE (22:45)
[2016-06-12] MEDS: MethylPREDNISolone 40 MG/ML VIAL IVP SCH ×3 (02:27→17:13)
[2016-06-12 02:49] LABS: Bilirubin,Urine Negative (Negative); Blood,Urine Negative (Negative); Clarity,Urine Clear (Clear); Color,Urine Yellow (Yellow); Glucose,Urine (UA) 100 mg/dL (Normal); Ketones,Urine Negative (Negative); Leukocyte Esterase,Urine Negative (Negative); Nitrite,Urine Negative (Negative); PH,Urine 5.5 pH Units (5.0-8.0); Protein,Urine Negative (Neg-Trace); Specific Gravity,Urine 1.014 (1.010-1.025); Urobilinogen,Urine Normal (Normal)
[2016-06-12] MEDS: Ipratropium/Albuterol Neb 3 ML IH SCH ×4 (03:37→23:07)
[2016-06-12 07:03] LABS: Basophils % 0.2 %; Hematocrit 34.1 % (37.5-50.1); Immature Granulocytes % 1.8 % (0-4); Lymphocytes # 0.2 K/mcL (0.6-4.6); Lymphocytes % 1.5 %; Mean Corpuscular HGB Conc 29.6 g/dL (31.6-35.5); Mean Corpuscular Hemoglobin 28.6 pg (28.0-33.3); Mean Corpuscular Volume 96.6 fL (83.0-100.0); Mean Platelet Volume 9.3 fL (9.4-12.4); Monocytes # 0.5 K/mcL (0.0-1.3); Monocytes % 3.4 %; Neutrophils # 13.4 K/mcL (1.6-8.9); Nucleated Red Blood Cells 0.1 /100 WBC (0); Platelet Count 228 K/mcL (140-400); Red Blood Count 3.53 M/mcL (4.19-5.50); Segmented Neutrophils % 93.1 %
[2016-06-12 07:15] LABS: BUN/Creatinine Ratio 36 (6-26); Calcium 9.2 mg/dL (8.6-10.8); Carbon Dioxide 30 mEq/L (19-29); Chloride 98 mEq/L (98-109); Glucose 116 mg/dL (70-99); Hemoglobin 10.1 g/dL (12.9-16.9); Osmolality,Calculated 291 (280-300); Sodium 137 mEq/L (136-145); eGFR For African Americans > 60 (> 60); eGFR For Non-African Americans > 60 (> 60)
[2016-06-12 07:20] LABS: Blood Urea Nitrogen 29 mg/dL (8-26); Potassium 4.2 mEq/L (3.5-4.5)
[2016-06-12 07:27] LABS: INR 1.1; Prothrombin Time 11.5 Seconds (9.4-12.1)
[2016-06-12] MEDS: Piperacillin/Tazobactam 3.375 GM in D5% in Water (Mini-Bag+) 100 ML IVPB SCH (08:16)
[2016-06-12] MEDS: Pantoprazole 40 MG VIAL IVP SCH (08:16)
[2016-06-12] MEDS: Folic Acid 1 MG TABLET PO SCH (08:17)
[2016-06-12] MEDS: *HR* LORazepam 0.5 MG TABLET PO SCH ×2 (08:17→19:51)
[2016-06-12] MEDS: Aspirin 81 MG TAB.CHEW PO SCH (08:17)
[2016-06-12] MEDS: IPRATROPIUM BROMIDE NS SCH ×2 (08:17→19:51)
[2016-06-12] MEDS: Loratadine 10 MG TABLET PO SCH (08:17)
[2016-06-12] MEDS: Cyanocobalamin (B-12) 1,000 MCG TABLET PO SCH (08:17)
[2016-06-12] MEDS: Metoprolol XL (24 HR) Succ 50 MG TAB.ER.24H PO SCH (08:17)
[2016-06-12] MEDS: Fluticasone Propionate Nasal 50 MCG/SPRAY BOTTLE NS SCH ×2 (08:18→19:51)
[2016-06-12] MEDS ORDERED: Aminoglycoside Consult 1 EACH MC ONE (08:52)
--- NOTE | 2016-06-12 12:10 | Internal Med Progress Note ---
Date of Encounter: 06/12/16 Time of Encounter: 12:01 - Assessment and plan (1) HCAP (healthcare-associated pneumonia) Current Visit: Yes Status: Acute Assessment and plan: Improving clinically; improving leukocytosis and O2 requirements; Blood cultures are negative; will hold Vancomycin and Zosyn and continue Levaquin; Urine Legionella and Pneumo Ag negative; Continue supportive care with IV hydration and supplemental O2 as needed. (2) Acute exacerbation of chronic obstructive pulmonary disease (COPD) Current Visit: Yes Status: Acute Assessment and plan: Patient is well-known to our service with multiple admissions for acute COPD. Currently improving, mostly nocturnal BiPAP and O2 requirements improved to 4L/ min NC; continue IV steroids to 40mg Q8hrly; continue scheduled bronchodilators ; repeat ABG reviewed, shows improvement in respiratory acidosis and CO2 retention; supportive care; uptodate on immunizations; (3) Anxiety Current Visit: Yes Status: Chronic (4) COPD (chronic obstructive pulmonary disease) Current Visit: Yes Status: Chronic Qualifiers: COPD type: emphysema Emphysema type: unspecified Qualified Code(s): J43.9 - Emphysema, unspecified (5) CHF (congestive heart failure) Current Visit: Yes Status: Chronic Assessment and plan: not noted to be in acute exacerbation; noted to have significant cor pulmonale and right ventricular dysfunction; had Cardiology evaluation previously and recommend to manage underlying COPD; continue beta-ivan and Lasix and hold ARB due to hyperkalemia; will restart nitrate if BP tolerates. Telemetry shows occasional short episodes of SVT, 3-4 beats; Qualifiers: Congestive heart failure type: diastolic Congestive heart failure chronicity: chronic Qualified Code(s): I50.32 - Chronic diastolic (congestive ) heart failure (6) Hypertension Current Visit: Yes Status: Chronic Qualifiers: Hypertension type: essential hypertension Qualified Code(s): I10 - Essential (primary) hypertension (7) Elevated troponin Current Visit: Yes Status: Acute (8) CAD (coronary artery disease) Current Visit: Yes Status: Chronic Qualifiers: Coronary Disease-Associated Artery/Lesion type: [place] artery [place] vs. transplanted heart: [place] heart Associated angina: without angina Qualified Code(s): I25.10 - Atherosclerotic heart disease of [place] coronary artery without angina pectoris (9) Acute on chronic respiratory failure with hypoxia and hypercapnia Current Visit: Yes Status: Acute Assessment and plan: On 2-3L/min [place] home O2 due to COPD, cor pulmonale; current acute respiratory failure due to COPD and Pneumonia; - Subjective Interval history: Feels much better today. Used BiPAP overnight for a few hours, currently off it. Saturating well on 5 L/m nasal cannula. Has intermittent wet cough, unable to bring up any sputum. Improved chest pain and shortness of breath. - Constitutional Vitals: Temp Pulse Resp BP Pulse Ox 98.1 F 109 18 112/61 97 06/12/16 11:36 06/12/16 11:36 06/12/16 11:36 06/12/16 11:36 06/12/16 11:36 General appearance: Present: A&O X 3, answers questions appropriately - Respiratory Respiratory exam: Present: decreased breath sounds (Slightly improved bilateral air entry), wheezes (Occasional very mild end expiratory wheezing at the right base). Absent: accessory muscle use, rales, rhonchi - Cardiovascular Cardiovascular exam: Present: RRR, +S1, +S2, tachycardia. Absent: diastolic murmur, gallop, rubs, systolic murmur - GI/Abdominal GI/Abdominal exam: Present: normal bowel sounds, soft, no peritoneal signs. Absent: distended, tenderness - Extremities Exam Extremities exam: Present: full ROM, warm, radial pulses palpable and symetrical. Absent: calf tenderness, cyanotic, pedal edema Internal Medicine: Result - Labs CBC & Chem 7: 06/12/16 06:36 06/12/16 06:36 Labs: Short CBC 06/12/16 Range/Units 06:36 WBC 14.4 H (4.3-11.1) K/mcL Hgb 10.1 L D (12.9-16.9) g/dL Hct 34.1 L (37.5-50.1) % Plt Count 228 (140-400) K/mcL Neutrophils # 13.4 H (1.6-8.9) K/mcL BMP 06/12/16 06:36 Sodium 137 Potassium 4.2 D Chloride 98 Carbon Dioxide 30 H BUN 29 H D Creatinine 0.81 Glucose 116 H Calcium 9.2 Cardiac Enzymes 06/11/16 Range/Units 11:45 Troponin I 0.11 H* (0-0.03) ng/mL Urine 06/12/16 Range/Units 02:30 Urine Color Yellow (Yellow) Urine Clarity Clear (Clear) Urine pH 5.5 (5.0-8.0) pH Units Ur Specific [place] 1.014 (1.010-1.025) Urine Protein Negative (Neg-Trace) mg/dL Urine Glucose (UA) 100 H (Normal) mg/dL - ABG Interpretation ABG results: ABG ABG pH 7.38 pH Units (7.32-7.45) 06/11/16 12:23 ABG pCO2 59 mmHg (35-45) H 06/11/16 12:23 ABG pO2 76 mmHg (85-104) L 06/11/16 12:23 ABG O2 Saturation 95 % (95-98) 06/11/16 12:23 PT/INR, D-dimer PT 11.5 Seconds (9.4-12.1) 06/12/16 06:36 - VTE Documentation of Mechanical Device: Graduated compression elastic hosiery Consult Discharge Plan - Plan [facility]errals: [facility] [Primary Care Provider] -
--- NOTE | 2016-06-12 12:33 | Electrocardiograph Report ---
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
[2016-06-12] MEDS: Levofloxacin 750 MG/150 ML 750 MG/150 ML BAG IVPB SCH (14:01)
[2016-06-13] MEDS: *HR* Metoprolol 5 MG/5 ML VIAL IVP PRN ×3 (00:26→14:48)
[2016-06-13 03:34] LABS: Hematocrit 31.2 % (37.5-50.1); Hemoglobin 9.4 g/dL (12.9-16.9); Mean Corpuscular HGB Conc 30.1 g/dL (31.6-35.5); Mean Corpuscular Hemoglobin 27.6 pg (28.0-33.3); Mean Corpuscular Volume 91.5 fL (83.0-100.0); Mean Platelet Volume 8.7 fL (9.4-12.4); Platelet Count 230 K/mcL (140-400); Red Blood Count 3.41 M/mcL (4.19-5.50); Red Cell Distribution Width 17.6 % (11.5-14.5)
[2016-06-13 03:41] LABS: INR 1.1; Prothrombin Time 11.4 Seconds (9.4-12.1)
[2016-06-13] MEDS: Ipratropium/Albuterol Neb 3 ML IH SCH ×4 (04:17→23:43)
[2016-06-13] MEDS: MethylPREDNISolone 40 MG/ML VIAL IVP SCH ×3 (08:18→18:09)
[2016-06-13] MEDS: Pantoprazole 40 MG VIAL IVP SCH (08:18)
[2016-06-13] MEDS: Cyanocobalamin (B-12) 1,000 MCG TABLET PO SCH (08:19)
[2016-06-13] MEDS: Folic Acid 1 MG TABLET PO SCH (08:19)
[2016-06-13] MEDS: Furosemide 20 MG TABLET PO SCH (08:19)
[2016-06-13] MEDS: Aspirin 81 MG TAB.CHEW PO SCH (08:19)
[2016-06-13] MEDS: Metoprolol XL (24 HR) Succ 50 MG TAB.ER.24H PO SCH (08:19)
[2016-06-13] MEDS: *HR* LORazepam 0.5 MG TABLET PO SCH ×2 (08:19→20:15)
[2016-06-13] MEDS: Isosorbide MONOnitrate (24 HR) 60 MG TAB.ER.24H PO SCH (08:19)
[2016-06-13] MEDS: Loratadine 10 MG TABLET PO SCH (08:19)
[2016-06-13] MEDS: IPRATROPIUM BROMIDE NS SCH ×2 (08:20→20:06)
[2016-06-13] MEDS: Fluticasone Propionate Nasal 50 MCG/SPRAY BOTTLE NS SCH ×2 (08:20→20:15)
--- NOTE | 2016-06-13 09:54 | Internal Med Progress Note ---
Date of Encounter: 06/13/16 Time of Encounter: 09:30 - Assessment and plan (1) HCAP (healthcare-associated pneumonia) Current Visit: Yes Status: Acute Assessment and plan: Improving clinically; improving leukocytosis and O2 requirements; Blood cultures are negative; continue Levaquin; Urine Legionella and Pneumo Ag negative; Continue supportive care with supplemental O2 as needed. (2) Acute exacerbation of chronic obstructive pulmonary disease (COPD) Current Visit: Yes Status: Acute Assessment and plan: Patient is well-known to our service with multiple admissions for acute COPD. Currently improving, mostly nocturnal BiPAP and O2 requirements improved to 3L/ min NC; start tapering down IV steroids as tolerated. continue scheduled bronchodilators; supportive care; uptodate on immunizations; (3) Anxiety Current Visit: Yes Status: Chronic (4) COPD (chronic obstructive pulmonary disease) Current Visit: Yes Status: Chronic Qualifiers: COPD type: emphysema Emphysema type: unspecified Qualified Code(s): J43.9 - Emphysema, unspecified (5) CHF (congestive heart failure) Current Visit: Yes Status: Chronic Assessment and plan: not noted to be in acute exacerbation; noted to have significant cor pulmonale and right ventricular dysfunction; telemetry shows continued episodes of SVT, between 3 and 7 beats each time, patient remains asymptomatic. We will increase metoprolol to 75 mg daily. Discussed with cardiology, agree with current management, plan to consult if there is no improvement. continue Lasix and hold ARB due to hyperkalemia; blood pressure improved at this time, we will restart nitrate. Qualifiers: Congestive heart failure type: diastolic Congestive heart failure chronicity: chronic Qualified Code(s): I50.32 - Chronic diastolic (congestive ) heart failure (6) Hypertension Current Visit: Yes Status: Chronic Qualifiers: Hypertension type: essential hypertension Qualified Code(s): I10 - Essential (primary) hypertension (7) Elevated troponin Current Visit: Yes Status: Acute Assessment and plan: has mild elevation of Troponin, likely related to COPD, Pneumonia and demand ischemia; troponin is now trending down. less likely coronary event; continue Telemetry monitoring; (8) CAD (coronary artery disease) Current Visit: Yes Status: Chronic Qualifiers: Coronary Disease-Associated Artery/Lesion type: [place] artery [place] vs. transplanted heart: [place] heart Associated angina: without angina Qualified Code(s): I25.10 - Atherosclerotic heart disease of [place] coronary artery without angina pectoris (9) Acute on chronic respiratory failure with hypoxia and hypercapnia Current Visit: Yes Status: Acute Assessment and plan: On 2-3L/min NC home O2 due to COPD, cor pulmonale; current acute respiratory failure due to COPD and Pneumonia; - Subjective Interval history: No chest pain, improving shortness of breath and cough. Has not used BiPAP since 11 PM last night. No palpitations or dizziness. - Constitutional Vitals: Temp Pulse Resp BP Pulse Ox 97.9 F 116 20 113/77 95 06/13/16 07:41 06/13/16 09:22 06/13/16 07:41 06/13/16 07:41 06/13/16 07:41 General appearance: Present: cachectic, A&O X 3, answers questions appropriately - Respiratory Respiratory exam: Present: decreased breath sounds (Decreased air entry bilaterally, no wheezing or rhonchi). Absent: accessory muscle use, rales, rhonchi, wheezes - Cardiovascular Cardiovascular exam: Present: RRR, +S1, +S2, tachycardia. Absent: diastolic murmur, gallop, rubs, systolic murmur - GI/Abdominal GI/Abdominal exam: Present: normal bowel sounds, soft, no peritoneal signs. Absent: distended, tenderness - Extremities Exam Extremities exam: Present: full ROM, warm, radial pulses palpable and symetrical. Absent: calf tenderness, cyanotic, pedal edema Internal Medicine: Result - Labs CBC & Chem 7: 06/13/16 03:25 06/12/16 06:36 Labs: Short CBC 06/13/16 Range/Units 03: WBC 13.6 H (4.3-11.1) K/mcL Hgb 9.4 L (12.9-16.9) g/dL Hct 31.2 L (37.5-50.1) % Plt Count 230 (140-400) K/mcL - ABG Interpretation ABG results: ABG ABG pH 7.38 pH Units (7.32-7.45) 06/11/16 12:23 ABG pCO2 59 mmHg (35-45) H 06/11/16 12:23 ABG pO2 76 mmHg (85-104) L 06/11/16 12:23 ABG O2 Saturation 95 % (95-98) 06/11/16 12:23 PT/INR, D-dimer PT 11.4 Seconds (9.4-12.1) 06/13/16 03:25 - VTE Documentation of Mechanical Device: Graduated compression elastic hosiery Consult Discharge Plan - Plan Referrals: LAURA,PCP [Primary Care Provider] - 06/28/16 12:30 pm
[2016-06-13] MEDS: Levofloxacin 750 MG/150 ML 750 MG/150 ML BAG IVPB SCH (12:40)
[2016-06-14] MEDS: MethylPREDNISolone 40 MG/ML VIAL IVP SCH ×2 (00:47→09:04)
[2016-06-14] MEDS: *HR* Metoprolol 5 MG/5 ML VIAL IVP PRN ×2 (02:55→20:19)
[2016-06-14] MEDS: Ipratropium/Albuterol Neb 3 ML IH SCH (04:24)
[2016-06-14 05:34] LABS: Hematocrit 32.9 % (37.5-50.1); Hemoglobin 9.9 g/dL (12.9-16.9); Mean Corpuscular HGB Conc 30.1 g/dL (31.6-35.5); Mean Corpuscular Hemoglobin 27.9 pg (28.0-33.3); Mean Corpuscular Volume 92.7 fL (83.0-100.0); Mean Platelet Volume 8.9 fL (9.4-12.4); Platelet Count 230 K/mcL (140-400); Red Blood Count 3.55 M/mcL (4.19-5.50); Red Cell Distribution Width 17.4 % (11.5-14.5)
[2016-06-14 05:40] LABS: Prothrombin Time 11.3 Seconds (9.4-12.1)
[2016-06-14] MEDS: Loratadine 10 MG TABLET PO SCH (09:00)
[2016-06-14] MEDS: Cyanocobalamin (B-12) 1,000 MCG TABLET PO SCH (09:00)
[2016-06-14] MEDS: Folic Acid 1 MG TABLET PO SCH (09:00)
[2016-06-14] MEDS: Isosorbide MONOnitrate (24 HR) 60 MG TAB.ER.24H PO SCH (09:02)
[2016-06-14] MEDS: Metoprolol XL (24 HR) Succ 50 MG TAB.ER.24H PO SCH (09:02)
[2016-06-14] MEDS: Aspirin 81 MG TAB.CHEW PO SCH (09:03)
[2016-06-14] MEDS: *HR* LORazepam 0.5 MG TABLET PO SCH ×2 (09:03→20:21)
[2016-06-14] MEDS: Furosemide 20 MG TABLET PO SCH (09:03)
[2016-06-14] MEDS: IPRATROPIUM BROMIDE NS SCH ×2 (09:04→20:22)
[2016-06-14] MEDS: Fluticasone Propionate Nasal 50 MCG/SPRAY BOTTLE NS SCH ×2 (09:04→20:22)
[2016-06-14] MEDS: predniSONE 20 MG TABLET PO SCH ×2 (11:06→17:18)
[2016-06-14] MEDS: Levofloxacin 750 MG/150 ML 750 MG/150 ML BAG IVPB SCH (11:07)
[2016-06-14] MEDS: Levalbuterol Neb 0.63 MG/3 ML IH SCH ×3 (11:26→22:53)
--- NOTE | 2016-06-14 18:13 | Internal Med Progress Note ---
Date of Encounter: 06/14/16 Time of Encounter: 18:11 - Assessment and plan (1) Acute exacerbation of chronic obstructive pulmonary disease (COPD) Current Visit: Yes Status: Acute (2) CHF (congestive heart failure) Current Visit: Yes Status: Chronic Qualifiers: Congestive heart failure type: diastolic Congestive heart failure chronicity: chronic Qualified Code(s): I50.32 - Chronic diastolic (congestive ) heart failure (3) Elevated troponin Current Visit: Yes Status: Acute (4) CAD (coronary artery disease) Current Visit: Yes Status: Chronic Qualifiers: Coronary Disease-Associated Artery/Lesion type: [place] artery [place] vs. transplanted heart: [place] heart Associated angina: without angina Qualified Code(s): I25.10 - Atherosclerotic heart disease of [place] coronary artery without angina pectoris (5) HCAP (healthcare-associated pneumonia) Current Visit: Yes Status: Acute (6) Hypothyroidism Current Visit: Yes Status: Chronic Qualifiers: Hypothyroidism type: acquired Qualified Code(s): E03.9 - Hypothyroidism, unspecified (7) Sinus tachycardia Current Visit: No Status: Acute (8) Acute on chronic respiratory failure with hypoxia and hypercapnia Current Visit: Yes Status: Acute (9) Non-ST elevation myocardial infarction (NSTEMI) due to mismatch of myocardial oxygen supply and demand Current Visit: Yes Status: Acute (10) Anxiety Current Visit: Yes Status: Chronic Assessment and plan: 66-year-old male with past medical history of COPD, CHF, anxiety, admitted to the hospital with acute shortness of breath. Chest x-ray on admission shows bilateral infiltrates concerning for pneumonia. # Healthcare associated pneumonia: she was recently treated at [facility] for pneumonia. He is currently on treatment with broad-spectrum IV antibiotics for HCAP. Blood cultures negative. Respiratory viral panel negative. Can switch to PO Levaquin tomorrow if remains clinically stable. # Acute exacerbations of COPD: in setting of pneumonia, improving clinically. Will need to be discharged home on inhaled corticosteroids and bronchodilators. Currently on prednisone 40 mg BID, taper off as tolerated. # SVT: no events overnight, heart rate remains elevated in the 100, Beta block is increased to 75 mg daily # Chronic compensated diastolic heart failure: History of cardiomyopathy with echo from 2016 showing ejection fraction of 60% Ef, right ventricular dysfunction and pressure overload. # Right heart failure: echo showing severe) regular dysfunction and pressure overload related to COPD and cor pulmonale, on diuresis # Elevated troponin: liking setting of demand ischemia. EKG negative for any acute ST TV changes. # Essential hypertension: continue home medications # History of coronary artery disease: acute events, continue home medications. Santo inhibitor was on hold in setting of hyperkalemia, restart as tolerated. On metoprolol 75 mg daily, aspirin, Plavix, Santo inhibitor, statin, nitrates. # Anxiety disorder: on PRN benzodiazepine # DVt prophylaxis - Time Spent With Patient 25 - 35 minutes - Subjective Interval history: Patient seen and examined at bedside, he remains on 3 to 4 L of oxygen. Appears to be slightly tachypneic on exam. Denies any cough, sputum production. She reports feeling anxious. Lapse from morning tribute, the [employer] trending down to 11.3, hemoglobin F9 .9, creatinine of 0.81 and potassium of 4.2. Vitals review, heart rate in 100's, afebrile. - Constitutional Vitals: Temp Pulse Resp BP Pulse Ox 97.8 F 108 22 111/67 92 L 06/14/16 15:34 06/14/16 16:00 06/14/16 15:34 06/14/16 15:34 06/14/16 17:22 General appearance: Present: cachectic, A&O X 3, answers questions appropriately - Head Head exam: Present: atraumatic, normocephalic - Respiratory Respiratory exam: Present: decreased breath sounds, CTAB, wheezes. Absent: accessory muscle use, rales, rhonchi - Cardiovascular Cardiovascular exam: Present: RRR, +S1, +S2. Absent: diastolic murmur, gallop, rubs, systolic murmur - GI/Abdominal GI/Abdominal exam: Present: normal bowel sounds, soft. Absent: tenderness - Extremities Exam Extremities exam: Present: warm, radial pulses palpable and symetrical. Absent : calf tenderness, cyanotic, pedal edema - Neurological Exam Neurological exam: Present: CN II-XII intact, oriented X3, no focal deficits. Absent: pronater drift, facial droop, speech deficit - Skin Skin exam: Present: dry, intact Internal Medicine: Result - Labs CBC & Chem 7: 06/14/16 05:15 06/12/16 06:36 Labs: Short CBC 06/14/16 Range/Units 05:15 WBC 11.3 H (4.3-11.1) K/mcL Hgb 9.9 L (12.9-16.9) g/dL Hct 32.9 L (37.5-50.1) % Plt Count 230 (140-400) K/mcL - ABG Interpretation ABG results: ABG ABG pH 7.38 pH Units (7.32-7.45) 06/11/16 12:23 ABG pCO2 59 mmHg (35-45) H 06/11/16 12:23 ABG pO2 76 mmHg (85-104) L 06/11/16 12:23 ABG O2 Saturation 95 % (95-98) 06/11/16 12:23 PT/INR, D-dimer PT 11.3 Seconds (9.4-12.1) 06/14/16 05:15 - VTE Documentation of Mechanical Device: Graduated compression elastic hosiery Consult Discharge Plan - Plan [facility]errals: [facility] [Primary Care Provider[facility] - (PT IS GOING BACK TO [facility] NO PCP APPOINTMENT NEEDED,)
[2016-06-14 19:23] LABS: BUN/Creatinine Ratio 33 (6-26); Blood Urea Nitrogen 33 mg/dL (8-26); Calcium 8.7 mg/dL (8.6-10.8); Carbon Dioxide 31 mEq/L (19-29); Chloride 95 mEq/L (98-109); Glucose 150 mg/dL (70-99); Osmolality,Calculated 288 (280-300); Potassium 4.1 mEq/L (3.5-4.5); Sodium 134 mEq/L (136-145); eGFR For African Americans > 60 (> 60); eGFR For Non-African Americans > 60 (> 60)
[2016-06-15] MEDS: *HR* Metoprolol 5 MG/5 ML VIAL IVP PRN (02:07)
[2016-06-15] MEDS: Benzonatate 100 MG CAPSULE PO PRN (02:12)
[2016-06-15] MEDS: Levalbuterol Neb 0.63 MG/3 ML IH SCH ×4 (03:57→21:46)
[2016-06-15] MEDS: Isosorbide MONOnitrate (24 HR) 60 MG TAB.ER.24H PO SCH (06:07)
[2016-06-15] MEDS ORDERED: Isosorbide MONOnitrate (24 HR) 30 MG TAB.ER.24H PO ONE (06:10)
[2016-06-15] MEDS ORDERED: 0.9 % Sodium Chloride 250 ML ONE (06:41)
[2016-06-15] MEDS: Aspirin 81 MG TAB.CHEW PO SCH (08:32)
[2016-06-15] MEDS: Folic Acid 1 MG TABLET PO SCH (08:32)
[2016-06-15] MEDS: Cyanocobalamin (B-12) 1,000 MCG TABLET PO SCH (08:32)
[2016-06-15] MEDS: predniSONE 20 MG TABLET PO SCH ×2 (08:32→16:18)
[2016-06-15] MEDS: Furosemide 20 MG TABLET PO SCH (08:32)
[2016-06-15] MEDS: *HR* LORazepam 0.5 MG TABLET PO SCH ×2 (08:32→21:02)
[2016-06-15] MEDS: Metoprolol XL (24 HR) Succ 50 MG TAB.ER.24H PO SCH (08:34)
[2016-06-15] MEDS: Fluticasone Propionate Nasal 50 MCG/SPRAY BOTTLE NS SCH ×2 (08:36→21:02)
[2016-06-15] MEDS: Loratadine 10 MG TABLET PO SCH (08:37)
[2016-06-15] MEDS: IPRATROPIUM BROMIDE NS SCH ×2 (08:37→21:03)
[2016-06-15 08:43] LABS: Basophils % 0.3 %; Hematocrit 33.1 % (37.5-50.1); Hemoglobin 10.6 g/dL (12.9-16.9); Immature Granulocytes % 2.4 % (0-4); Lymphocytes # 0.6 K/mcL (0.6-4.6); Lymphocytes % 3.7 %; Mean Corpuscular Volume 90.4 fL (83.0-100.0); Mean Platelet Volume 9.4 fL (9.4-12.4); Monocytes # 1.3 K/mcL (0.0-1.3); Monocytes % 8.1 %; Neutrophils # 13.4 K/mcL (1.6-8.9); Platelet Count 272 K/mcL (140-400); Red Blood Count 3.66 M/mcL (4.19-5.50); Red Cell Distribution Width 17.2 % (11.5-14.5); Segmented Neutrophils % 85.5 %
[2016-06-15 08:56] LABS: BUN/Creatinine Ratio 39 (6-26); Blood Urea Nitrogen 28 mg/dL (8-26); Calcium 9.3 mg/dL (8.6-10.8); Carbon Dioxide 32 mEq/L (19-29); Chloride 97 mEq/L (98-109); Glucose 97 mg/dL (70-99); Osmolality,Calculated 287 (280-300); Potassium 4.2 mEq/L (3.5-4.5); Sodium 136 mEq/L (136-145); eGFR For African Americans > 60 (> 60); eGFR For Non-African Americans > 60 (> 60)
--- NOTE | 2016-06-15 10:07 | Internal Med Progress Note ---
Date of Encounter: 06/15/16 Time of Encounter: 10:05 - Assessment and plan (1) Acute exacerbation of chronic obstructive pulmonary disease (COPD) Current Visit: Yes Status: Acute (2) CHF (congestive heart failure) Current Visit: Yes Status: Chronic Qualifiers: Congestive heart failure type: diastolic Congestive heart failure chronicity: chronic Qualified Code(s): I50.32 - Chronic diastolic (congestive ) heart failure (3) Elevated troponin Current Visit: Yes Status: Acute (4) CAD (coronary artery disease) Current Visit: Yes Status: Chronic Qualifiers: Coronary Disease-Associated Artery/Lesion type: [place] artery [place] vs. transplanted heart: [place] heart Associated angina: without angina Qualified Code(s): I25.10 - Atherosclerotic heart disease of [place] coronary artery without angina pectoris (5) HCAP (healthcare-associated pneumonia) Current Visit: Yes Status: Acute (6) Hypothyroidism Current Visit: Yes Status: Chronic Qualifiers: Hypothyroidism type: acquired Qualified Code(s): E03.9 - Hypothyroidism, unspecified (7) Sinus tachycardia Current Visit: No Status: Acute (8) Acute on chronic respiratory failure with hypoxia and hypercapnia Current Visit: Yes Status: Acute (9) Non-ST elevation myocardial infarction (NSTEMI) due to mismatch of myocardial oxygen supply and demand Current Visit: Yes Status: Acute (10) Anxiety Current Visit: Yes Status: Chronic Assessment and plan: 66-year-old male with past medical history of COPD, CHF, anxiety, admitted to the hospital with acute shortness of breath. Chest x-ray on admission shows bilateral infiltrates concerning for pneumonia. # Healthcare associated pneumonia: she was recently treated at [facility] for pneumonia. He is currently on treatment with broad-spectrum IV antibiotics for HCAP. Blood cultures negative. Respiratory viral panel negative. Can switch to PO Levaquin tomorrow if remains clinically stable. # Acute exacerbations of COPD: in setting of pneumonia, improving clinically. Will need to be discharged home on inhaled corticosteroids and bronchodilators. Currently on prednisone 40 mg BID, taper off as tolerated. # SVT: overnight events noted, HR elevated at 180's and was started on cardizem drip by last night. Beta ivan was increased to 75 mg yesterday. Will consult cardiology. # Chronic compensated diastolic heart failure: History of cardiomyopathy with echo from 2016 showing ejection fraction of 60% EF, right ventricular dysfunction and pressure overload. # Right heart failure: echo showing severe) regular dysfunction and pressure overload related to COPD and cor pulmonale, on diuresis # Elevated troponin: likely in setting of demand ischemia. EKG negative for any acute ST T wave changes. # Essential hypertension: continue home medications # History of coronary artery disease: acute events, continue home medications. Santo inhibitor was on hold in setting of hyperkalemia, restart as tolerated. On metoprolol 75 mg daily, aspirin, Plavix, Santo inhibitor, statin, nitrates. # Anxiety disorder: on PRN benzodiazepine # DVt prophylaxis - Time Spent With Patient 25 - 35 minutes - Subjective Interval history: Patient seen and examined with site. Events from overnight noted. His heart rate has been elevated as high as 180's overnight. Patient was started on cradizem drip overnight with improvement in heart rate. He denies anyc hest pain. reports mild SOB, denies any other complaints. He remains of 3-4 l of oxygen. - Constitutional Vitals: Temp Pulse Resp BP Pulse Ox 97.4 F L 128 28 116/64 96 06/15/16 08:03 06/15/16 08:41 06/15/16 08:41 06/15/16 08:03 06/15/16 08:41 General appearance: Present: cachectic, A&O X 3, answers questions appropriately - Eye Eye exam: Present: PERRL, conjuntiva pink, sclera anicteric Pupils: Present: PERRL - Neck Neck exam general surgery: Present: normal inspection, supple, trachea midline. Absent: lymphadenopathy - Respiratory Respiratory exam: Present: decreased breath sounds, rales, wheezes. Absent: accessory muscle use, CTAB, rhonchi - Cardiovascular Cardiovascular exam: Present: tachycardia - GI/Abdominal GI/Abdominal exam: Present: normal bowel sounds, soft, no peritoneal signs. Absent: distended, tenderness - Extremities Exam Extremities exam: Present: warm, radial pulses palpable and symetrical. Absent : calf tenderness, cyanotic, pedal edema - Neurological Exam Neurological exam: Present: CN II-XII intact, oriented X3, no focal deficits. Absent: pronater drift, facial droop, speech deficit - Skin Skin exam: Present: dry, intact Internal Medicine: Result - Labs CBC & Chem 7: 06/15/16 08:21 06/15/16 08:21 Labs: Short CBC 06/15/16 Range/Units 08:21 WBC 15.7 H (4.3-11.1) K/mcL Hgb 10.6 L (12.9-16.9) g/dL Hct 33.1 L (37.5-50.1) % Plt Count 272 (140-400) K/mcL Neutrophils # 13.4 H (1.6-8.9) K/mcL BMP 06/14/16 06/15/16 18:38 08:21 Sodium 134 L 136 Potassium 4.1 4.2 Chloride 95 L 97 L Carbon Dioxide 31 H 32 H BUN 33 H 28 H Creatinine 0.99 0.72 Glucose 150 H 97 Calcium 8.7 9.3 - ABG Interpretation ABG results: ABG ABG pH 7.38 pH Units (7.32-7.45) 06/11/16 12:23 ABG pCO2 59 mmHg (35-45) H 06/11/16 12:23 ABG pO2 76 mmHg (85-104) L 06/11/16 12:23 ABG O2 Saturation 95 % (95-98) 06/11/16 12:23 PT/INR, D-dimer PT 11.3 Seconds (9.4-12.1) 06/14/16 05:15 - VTE Documentation of Mechanical Device: Graduated compression elastic hosiery Consult Discharge Plan - Plan [facility]errals: [facility] [Primary Care Provider[facility] - (PT IS GOING BACK TO [facility] NO PCP APPOINTMENT NEEDED,)
[2016-06-15] MEDS: Levofloxacin 750 MG/150 ML 750 MG/150 ML BAG IVPB SCH (11:38)
--- NOTE | 2016-06-15 11:58 | Cardiology Consult Note ---
Date of Encounter: 06/15/16 Time of Encounter: 12:00 Assessment and Plan (1) HCAP (healthcare-associated pneumonia) Current Visit: Yes Status: Acute Per Cardiology: CXR showed: Chest X-Ray 06/10/16 15:14 IMPRESSION: Bibasilar airspace disease consistent with multilobar pneumonia. This is most prominent on the right. Moderate background emphysema is present. Leukocytosis improving. Afebrile. On antibiotics and steroids per primary service. Patient and desire to remain full code and proceed with intubation if clinically warranted. (2) COPD exacerbation Current Visit: No Status: Acute Per Cardiology: Has stage IV COPD. Reports quit smoking about one year ago. Further management per primary service. Consider pulmonary consult if clinically warranted. (3) Sinus tachycardia Current Visit: No Status: Acute Per Cardiology: Average heart rate on telemetry the past 12 hours 124. ECG and monitor strips reviewed it appears to be sinus tach with PACs, atrial tachycardia, and brief episodes of SVT. No A. fib appreciated. Heart rate currently in the 90s to 100s on telemetry sinus rhythm with PACs. On IV Cardizem drip 10 mg per hour. Will increase Toprol XL to 75 mg by mouth twice a day. Current systolic blood pressure in the 100s to 110s. Continue to monitor heart rate and blood pressure closely. Will attempt to wean off IV Cardizem drip. (4) Right ventricular dysfunction Current Visit: No Status: Chronic Per Cardiology: Last echo from February 2016 showed EF preserved 60%, severely dilated RV with moderate severe RV hypokinesis, mod-sev dilated RA. BNP noted to be 794. On Lasix 30 mg by mouth daily. According to medical records patient is net negative 3895ml. Clinically euvolemic on exam. (5) Elevated troponin Current Visit: Yes Status: Acute Per Cardiology: Troponin is mildly elevated, flat, adynamic with peak of 0.20. Of note has history of mild troponin elevations. Do not suspect non-STEMI, suspect to be in ischemia and setting of COPD and pneumonia. Per review of medical records medical management has been recommended in the past. No cardiac rehabilitation consult mackenzie at this time. (6) CAD (coronary artery disease) Current Visit: Yes Status: Chronic Per Cardiology: History of CAD with stenting to proximal RCA in 2009. Had recent non-STEMI symmetry of 16 with peak troponin of 2.20 again been medically managed, on aspirin, Plavix, statin, beta ivan, and long-acting nitrate. Currently denies any chest pain. Qualifiers: Coronary Disease-Associated Artery/Lesion type: [place] artery [place] vs. transplanted heart: [place] heart Associated angina: without angina Qualified Code(s): I25.10 - Atherosclerotic heart disease of [place] coronary artery without angina pectoris Discussion w patient/family: The assessment and plan as outlined above was discussed with the patient and/or family members who expressed understanding and agreement. All questions were answered. Thank you for involving us in the care of your patient. Please call with any questions. History of Present Illness Consult date: 06/15/16 Requesting physician: Maria C Cline Consult reason: SVT Chief complaint: SOB History of present illness: Mr. Reeder is a 66 year old male with relevant past medical history stage IV COPD, right-sided CHF, history of CAD with stenting in 2009 and non-STEMI in February 2016 with medical management recommended, hypertension, Richardson's esophagus, GERD, history of CVA, nicotine abuse. Cardiology consult for SVT. Patient reports he currently resides at the [facility] and was transferred to [facility] for worsening breathing and concerns for possible intubation. He reports he was told he had pneumonia. He reports his shorts of breath very slightly improved from this hospital stay. He does report he wears oxygen 24 7. He denies any chest pain or palpitations. Denied any palpitations yesterday evening. Does report some occasional right-sided neck and shoulder numbness at rest. He denies any recent fever, chills, nausea, vomiting, diarrhea. Reports nonproductive cough. Patient and indicate desire to remain full code at this time. Past Med Surg Social Fam HX - Past Medical History Attestation: Yes The following information was validated with the patient. Source: patient, old records reviewed Medical history: arthritis, cardiomyopathy (2016 echocardiogram demonstrated normal left ventricular chamber size wall thickness and systolic function. LVEF 60%. Severely dilated right ventricle with moderately severe right ventricular hypokinesis. Flattening of right intraventricular septum consistent with right ventricular pressure overload. Moderately severe right dilated atrium. Left atrium normal in size. Valvular function not assessed.), CHF, COPD, coronary artery disease, CVA, GERD, hyperlipidemia, hypertension, myocardial infarction Psychiatric history: anxiety, other - Past Surgical History Surgical History: angioplasty/stent, other - Social History Smoking Status: Former smoker Packs per day: ~40pk-yrs Smokeless Tobacco Status: No Alcohol use: none Drug use: none - Family History Father Adopted: No Family Member Ethnicity: Non- Living Status: Hx Family Cardiac Disorders: Yes Hx Family Respiratory Disorders: Yes Hx Family Cancer: Yes Medications and Allergies Aspirin 81 mg PO DAILY 12/12/14 [History] Clopidogrel [Plavix] 75 mg PO DAILY 12/12/14 [History] Cyanocobalamin (B-12) [Vitamin B12] 1,000 mcg PO DAILY #30 tablet 03/14/16 [Rx] Folic Acid 1 mg PO DAILY #30 tablet 03/14/16 [Rx] Acetaminophen [Tylenol] 650 mg PO Q6HR PRN 04/26/16 [History] Albuterol Neb [Proventil Neb] 2.5 mg IH QID PRN 04/26/16 [History] Budesonide/Formoterol 160/4.5 [Symbicort 160/4.5] 2 puff IH BIDR 04/26/16 [ History] Cetirizine HCl [Zyrtec] 10 mg PO DAILY 04/26/16 [History] Famotidine [Pepcid] 20 mg PO BID 04/26/16 [History] Fluticasone Propionate Nasal [Flonase] 50 mcg NS BID 04/26/16 [History] Furosemide [Lasix] 30 mg PO DAILY 04/26/16 [History] Ipratropium [place] 1 spray NS BID 04/26/16 [History] Ipratropium/Albuterol Neb [Duoneb] 3 ml IH Q6H PRN 04/26/16 [History] Isosorbide MONOnitrate (24 HR) [Imdur] 60 mg PO DAILY 04/26/16 [History] LORazepam [Ativan] 0.5 mg PO BID 04/26/16 [History] LORazepam [Ativan] 0.5 mg PO HS PRN 04/26/16 [History] Loratadine [Allergy Relief] 10 mg PO DAILY 04/26/16 [History] Phenylephrine HCl/Hard Fat [Shayy-Med] 1 each RC HS PRN 04/26/16 [History] Ranitidine HCl [Zantac] 150 mg PO BID 04/26/16 [History] Simvastatin [Zocor] 40 mg PO HS 04/26/16 [History] Losartan [Cozaar] 25 mg PO DAILY 06/10/16 [History] Metoprolol XL (24 HR) Succ [Toprol XL] 50 mg PO DAILY 06/10/16 [History] Allergies Tetracycline Allergy (Verified 03/10/16 06:33) Hives codeine Adverse Reaction (Verified 03/10/16 06:33) Headache All Systems Review: A 10-system review of systems was performed and is negative for pertinent findings except as documented above in the HPI. - Constitutional Constitutional: fatigue - Cardiovascular Cardiovascular: as per HPI, dyspnea at rest, dyspnea on exertion - Respiratory Respiratory: cough, dyspnea, wheezing Physical Examination Vital Signs, Last 4 Hours Temp Pulse Resp BP Pulse Ox 06/15/16 08:41 128 28 96 06/15/16 08:03 97.4 F L 125 23 116/64 96 General: Conversant HEENT: Atraumatic, Normocephaly Neck: Normal carotid pulses Cardiac: Reg Rate and Rhythm, Normal S1 and S2, No Murmur Lungs: Other (Expiratory wheezes noted throughout, respirations labored at rest , conversational dyspnea noted as well, decreased breath sounds to bilateral bases) Neuro: Alert and responsive, No focal deficits noted Abdomen: Soft, Non-Tender Skin: No rashes noted on visualized skin Musculoskeletal: No Chest Wall Tenderness Extremities: No Edema, Normal Pulses Results 06/15/16 08:21 06/15/16 08:21 Lab Results Laboratory Tests 06/10/16 06/10/16 06/11/16 16:06 16:06 00:12 WBC 30.8 H* INR Magnesium 2.6 AST 22 ALT 29 Troponin I 0.20 H* 06/11/16 06/11/16 06/11/16 00:12 06:00 11:45 WBC INR Magnesium AST ALT Troponin I 0.18 H* 0.13 H* 0.11 H* 06/14/16 06/15/16 05:15 08:21 WBC 15.7 H INR 1.0 Magnesium AST ALT Troponin I ITS Impressions Chest X-Ray 06/10/16 15:14 IMPRESSION: Bibasilar airspace disease consistent with multilobar pneumonia. This is most prominent on the right. Moderate background emphysema is present. D/ / 06/10/2016 15:41:15 Alden Herbert MD / kirill Interpreting Provider: Alden Herbert MD Intake & Output 06/12/16 06/13/16 06/14/16 06/15/16 23:59 23:59 23:59 23:59 Intake Total 850 / 850 990 / 990 750 / 750 960 / 960 Output Total 2350 / 2350 1350 / 1350 1425 / 1425 850 / 850 Balance -1500 / -1500 -360 / -360 -675 / -675 110 / 110 Weight 46.1 kg 47.5 kg 53.9 kg 54.8 kg Active Medications Acetaminophen (Tylenol) 650 mg PO Q6HR PRN PRN Reason: Mild Pain (1-3) Stop: 12/10/16 22:37 Albuterol Sulfate (Proventil Neb) 2.5 mg IH Q2H PRN PRN Reason: Shortness Of Breath/Wheezing Stop: 12/10/16 22:37 Last Admin: 06/14/16 16:14 Dose: 2.5 mg Aspirin (Aspirin) 81 mg PO DAILY [facility] Stop: 12/11/16 09:01 Last Admin: 06/15/16 08:32 Dose: 81 mg Benzonatate (Tessalon) 200 mg PO TID PRN PRN Reason: Cough Stop: 12/10/16 22:37 Last Admin: 06/15/16 02:12 Dose: 200 mg Clopidogrel Bisulfate (Plavix) 75 mg PO DAILY [facility] Stop: 12/11/16 09:01 Last Admin: 06/15/16 08:32 Dose: 75 mg Cyanocobalamin (Vitamin B12) 1,000 mcg PO DAILY [facility] Stop: 12/11/16 09:01 Last Admin: 06/15/16 08:32 Dose: 1,000 mcg Docusate Sodium (Colace) 100 mg PO BID PRN PRN Reason: Constipation Stop: 12/10/16 22:37 Fluticasone Propionate (Flonase) 50 mcg NS BID [facility] PRN Reason: Protocol Stop: 12/11/16 09:01 Last Admin: 06/15/16 08:36 Dose: 50 mcg Folic Acid (Folic Acid) 1 mg PO DAILY [facility] Stop: 12/11/16 09:01 Last Admin: 06/15/16 08:32 Dose: 1 mg Furosemide (Lasix) 30 mg PO DAILY [facility] Stop: 12/13/16 09:01 Last Admin: 06/15/16 08:32 Dose: 30 mg Guaifenesin (Mucinex) 600 mg PO BID [facility] Stop: 12/11/16 09:01 Last Admin: 06/15/16 08:33 Dose: 600 mg Levofloxacin/Dextrose (Levaquin 750mg/150 Ml) 750 mg in 150 mls @ 100 mls/hr IVPB Q24H [facility] PRN Reason: Protocol Stop: 12/12/16 12:01 Last Admin: 06/15/16 11:38 Dose: 100 mls/hr Diltiazem HCl 125 mg/ Dextrose 125 mls @ 5 mls/hr IVC .Q24H [facility] PRN Reason: 5 MG/HR Stop: 12/15/16 06:46 Last Admin: 06/15/16 07:05 Dose: 5 mg/hr, 5 mls/hr Isosorbide Mononitrate (Imdur) 60 mg PO DAILY [facility] Stop: 12/13/16 09:01 Last Admin: 06/15/16 06:07 Dose: Not Given Levalbuterol HCl (Xopenex) 0.63 mg IH [id number] [facility] Stop: 12/14/16 10:01 Last Admin: 06/15/16 11:56 Dose: 0.63 mg Loratadine (Claritin) 10 mg PO DAILY [facility] Stop: 12/11/16 09:01 Last Admin: 06/15/16 08:37 Dose: 10 mg Lorazepam (Ativan) 0.5 mg PO HS PRN PRN Reason: Anxiety Stop: 12/10/16 22:48 Lorazepam (Ativan) 0.5 mg PO BID [facility] Stop: 12/11/16 09:01 Last Admin: 06/15/16 08:32 Dose: 0.5 mg Metoprolol Succinate (Toprol Xl) 75 mg PO DAILY [facility] Stop: 12/14/16 09:01 Last Admin: 06/15/16 08:34 Dose: 75 mg Metoprolol Tartrate (Lopressor) 5 mg IVP Q6HR PRN PRN Reason: SEE COMMENTS Stop: 12/10/16 22:50 Last Admin: 06/15/16 02:07 Dose: 5 mg Morphine Sulfate (Morphine Sulfate) 2 mg IVP Q4HR PRN PRN Reason: Severe Pain (7-10) Stop: 12/10/16 22:37 Naloxone HCl (Narcan) 0.4 mg IVP Q2MIN PRN PRN Reason: Opioid Reversal Stop: 12/10/16 22:37 Nicotine (Nicoderm) 21 mg TD DAILY PRN PRN Reason: Nicotine Cravings Stop: 12/10/16 22:46 Nitroglycerin (Nitroglycerin) 0.4 mg SL Q5MIN PRN PRN Reason: Chest Pain Stop: 12/10/16 22:50 Omeprazole (Prilosec) 20 mg PO DAILY@0730 [facility] PRN Reason: Protocol Stop: 12/14/16 07:31 Last Admin: 06/15/16 06:13 Dose: 20 mg Oxycodone HCl (Roxicodone) 10 mg PO Q6HR PRN PRN Reason: Moderate Pain (4-6) Stop: 12/10/16 22:37 Pharmacy Profile Note (Patient Taking Own Medication) 1 each NS BID [facility] Stop: 12/11/16 09:01 Last Admin: 06/15/16 08:37 Dose: Not Given Prednisone (Prednisone) 40 mg PO BIDWM [facility] Stop: 12/14/16 09:59 Last Admin: 06/15/16 08:32 Dose: 40 mg Promethazine HCl (Phenergan) 12.5 mg IVP Q6HR PRN PRN Reason: Nausea And Vomiting Stop: 12/10/16 22:37 Simvastatin (Zocor) 10 mg PO HS [facility] PRN Reason: Protocol Stop: 12/11/16 21:01 Last Admin: 06/14/16 20:21 Dose: 10 mg - Imaging and Cardiology Chest Xray: report reviewed Echo: report reviewed - EKG Interpretation EKG results cardiology: personally reviewed (ST with PACs and MAT and SVT noted , no afib appreciated), other (Tele shows avg HR 124 past 12 hrs, ST) Consult Discharge Plan - Plan [facility]errals: [facility]Primary Care Provider[facility] - (PT IS GOING BACK TO [facility] NO PCP APPOINTMENT NEEDED,)
--- NOTE | 2016-06-15 14:10 | Cardiology Consult Note ---
Date of Encounter: 06/15/16 Time of Encounter: 13:00 Assessment and Plan (1) HCAP (healthcare-associated pneumonia) Current Visit: Yes Status: Acute Per Cardiology: CXR showed: Chest X-Ray 06/10/16 15:14 IMPRESSION: Bibasilar airspace disease consistent with multilobar pneumonia. This is most prominent on the right. Moderate background emphysema is present. Leukocytosis improving. Afebrile. On antibiotics and steroids per primary service. Patient and desire to remain full code and proceed with intubation if clinically warranted. (2) COPD exacerbation Current Visit: No Status: Acute Per Cardiology: Has stage IV COPD. Reports quit smoking about one year ago. Further management per primary service. Consider pulmonary consult if clinically warranted. (3) Sinus tachycardia Current Visit: No Status: Acute Per Cardiology: Average heart rate on telemetry the past 12 hours 124. ECG and monitor strips reviewed it appears to be sinus tach with PACs, atrial tachycardia, and brief episodes of SVT. No A. fib appreciated. Heart rate currently in the 90s to 100s on telemetry sinus rhythm with PACs. On IV Cardizem drip 10 mg per hour. Will increase Toprol XL to 75 mg by mouth twice a day. Current systolic blood pressure in the 100s to 110s. Continue to monitor heart rate and blood pressure closely. Will attempt to wean off IV Cardizem drip. (4) Right ventricular dysfunction Current Visit: No Status: Chronic Per Cardiology: Last echo from February 2016 showed EF preserved 60%, severely dilated RV with moderate severe RV hypokinesis, mod-sev dilated RA. BNP noted to be 794. On Lasix 30 mg by mouth daily. According to medical records patient is net negative 3895ml. Clinically euvolemic on exam. (5) Elevated troponin Current Visit: Yes Status: Acute Per Cardiology: Troponin is mildly elevated, flat, adynamic with peak of 0.20. Of note has history of mild troponin elevations. Do not suspect non-STEMI, suspect to be in ischemia and setting of COPD and pneumonia. Per review of medical records medical management has been recommended in the past. No cardiac rehabilitation consult mackenzie at this time. (6) CAD (coronary artery disease) Current Visit: Yes Status: Chronic Per Cardiology: History of CAD with stenting to proximal RCA in 2009. Had recent non-STEMI symmetry of 16 with peak troponin of 2.20 again been medically managed, on aspirin, Plavix, statin, beta ivan, and long-acting nitrate. Currently denies any chest pain. Qualifiers: Coronary Disease-Associated Artery/Lesion type: [place] artery [place] vs. transplanted heart: [place] heart Associated angina: without angina Qualified Code(s): I25.10 - Atherosclerotic heart disease of [place] coronary artery without angina pectoris Discussion w patient/family: The assessment and plan as outlined above was discussed with the patient and/or family members who expressed understanding and agreement. All questions were answered. Thank you for involving us in the care of your patient. Please call with any questions. History of Present Illness History of present illness: Mr. Reeder is a 66 year old male Past Med Surg Social Fam HX - Past Medical History Medical history: arthritis, cardiomyopathy (2016 echocardiogram demonstrated normal left ventricular chamber size wall thickness and systolic function. LVEF 60%. Severely dilated right ventricle with moderately severe right ventricular hypokinesis. Flattening of right intraventricular septum consistent with right ventricular pressure overload. Moderately severe right dilated atrium. Left atrium normal in size. Valvular function not assessed.), CHF, COPD, coronary artery disease, CVA, GERD, hyperlipidemia, hypertension, myocardial infarction Psychiatric history: anxiety, other - Past Surgical History Surgical History: angioplasty/stent, other - Social History Smoking Status: Former smoker Packs per day: ~40pk-yrs Smokeless Tobacco Status: No Alcohol use: none Drug use: none - Family History Father Adopted: No Family Member Ethnicity: Non- Living Status: Hx Family Cardiac Disorders: Yes Hx Family Respiratory Disorders: Yes Hx Family Cancer: Yes Medications and Allergies Aspirin 81 mg PO DAILY 12/12/14 [History] Clopidogrel [Plavix] 75 mg PO DAILY 12/12/14 [History] Cyanocobalamin (B-12) [Vitamin B12] 1,000 mcg PO DAILY #30 tablet 03/14/16 [Rx] Folic Acid 1 mg PO DAILY #30 tablet 03/14/16 [Rx] Acetaminophen [Tylenol] 650 mg PO Q6HR PRN 04/26/16 [History] Albuterol Neb [Proventil Neb] 2.5 mg IH QID PRN 04/26/16 [History] Budesonide/Formoterol 160/4.5 [Symbicort 160/4.5] 2 puff IH BIDR 04/26/16 [ History] Cetirizine HCl [Zyrtec] 10 mg PO DAILY 04/26/16 [History] Famotidine [Pepcid] 20 mg PO BID 04/26/16 [History] Fluticasone Propionate Nasal [Flonase] 50 mcg NS BID 04/26/16 [History] Furosemide [Lasix] 30 mg PO DAILY 04/26/16 [History] Ipratropium [place] 1 spray NS BID 04/26/16 [History] Ipratropium/Albuterol Neb [Duoneb] 3 ml IH Q6H PRN 04/26/16 [History] Isosorbide MONOnitrate (24 HR) [Imdur] 60 mg PO DAILY 04/26/16 [History] LORazepam [Ativan] 0.5 mg PO BID 04/26/16 [History] LORazepam [Ativan] 0.5 mg PO HS PRN 04/26/16 [History] Loratadine [Allergy Relief] 10 mg PO DAILY 04/26/16 [History] Phenylephrine HCl/Hard Fat [Shayy-Med] 1 each RC HS PRN 04/26/16 [History] Ranitidine HCl [Zantac] 150 mg PO BID 04/26/16 [History] Simvastatin [Zocor] 40 mg PO HS 04/26/16 [History] Losartan [Cozaar] 25 mg PO DAILY 06/10/16 [History] Metoprolol XL (24 HR) Succ [Toprol XL] 50 mg PO DAILY 06/10/16 [History] Allergies Tetracycline Allergy (Verified 03/10/16 06:33) Hives codeine Adverse Reaction (Verified 03/10/16 06:33) Headache All Systems Review: A 10-system review of systems was performed and is negative for pertinent findings except as documented above in the HPI. Physical Examination Vital Signs, Last 4 Hours Temp Pulse Resp BP Pulse Ox 06/15/16 12:05 100 06/15/16 12:02 97.8 F 98 22 117/72 99 06/15/16 11:58 22 96 Results 06/15/16 08:21 06/15/16 08:21 Lab Results 06/14/16 06/15/16 06/15/16 18:38 08:21 08:21 WBC 15.7 H Hgb 10.6 L Hct 33.1 L Plt Count 272 Sodium 134 L 136 Potassium 4.1 4.2 Chloride 95 L 97 L Carbon Dioxide 31 H 32 H BUN 33 H 28 H Creatinine 0.99 0.72 Glucose 150 H 97 Calcium 8.7 9.3 Consult Discharge Plan - Plan [facility]errals: [facility] [Primary Care Provider] - (PT IS GOING BACK TO [facility] NO PCP APPOINTMENT NEEDED,)
[2016-06-15] MEDS: Diltiazem CD (24hr) 120 MG CAPSULE PO SCH ×2 (16:48→21:02)
[2016-06-15] MEDS ORDERED: Metoprolol XL (24 HR) Succ 50 MG TAB.ER.24H PO SCH (21:00)
[2016-06-16] MEDS: Levalbuterol Neb 0.63 MG/3 ML IH SCH ×4 (04:27→22:56)
[2016-06-16 04:50] LABS: Basophils % 0.2 %; Hematocrit 30.7 % (37.5-50.1); Hemoglobin 9.6 g/dL (12.9-16.9); Immature Granulocytes % 2.8 % (0-4); Lymphocytes # 0.4 K/mcL (0.6-4.6); Lymphocytes % 2.5 %; Mean Corpuscular HGB Conc 31.3 g/dL (31.6-35.5); Mean Corpuscular Hemoglobin 28.4 pg (28.0-33.3); Mean Corpuscular Volume 90.8 fL (83.0-100.0); Mean Platelet Volume 9.5 fL (9.4-12.4); Monocytes # 0.9 K/mcL (0.0-1.3); Monocytes % 6.6 %; Neutrophils # 12.5 K/mcL (1.6-8.9); Platelet Count 252 K/mcL (140-400); Red Blood Count 3.38 M/mcL (4.19-5.50); Red Cell Distribution Width 17.3 % (11.5-14.5); Segmented Neutrophils % 87.9 %
[2016-06-16 04:59] LABS: BUN/Creatinine Ratio 44 (6-26); Blood Urea Nitrogen 38 mg/dL (8-26); Calcium 8.7 mg/dL (8.6-10.8); Carbon Dioxide 34 mEq/L (19-29); Chloride 94 mEq/L (98-109); Glucose 133 mg/dL (70-99); Osmolality,Calculated 289 (280-300); Potassium 4.2 mEq/L (3.5-4.5); Sodium 134 mEq/L (136-145); eGFR For African Americans > 60 (> 60); eGFR For Non-African Americans > 60 (> 60)
--- NOTE | 2016-06-16 08:44 | Cardiology Progress Note ---
Date of Encounter: 06/16/16 Time of Encounter: 08:00 Assessment and Plan (1) HCAP (healthcare-associated pneumonia) Current Visit: Yes Status: Acute Per cardiology: -Chest x-ray with multilobular pneumonia. -On nebs, ATB, and steroids. -On O2 and Bipap PRN. -May have been contributing to tachycardia. -Management per primary service. (GENOVEVA) (2) COPD exacerbation Current Visit: No Status: Acute Per cardiology: -KNown history of severe COPD. -On O2 at all times and Bipap PRN. -On nebulizers. -Can consider pulmonary consult. -May have been contributing to tachycardia. -Management per primary service. (GENOVEVA) (3) Sinus tachycardia Current Visit: No Status: Resolved Per cardiology: -Sinus tachycardia noted 06/15/16. Patient had frequent PACs and runs of atrial tachycardia. -On toprol 50mg daily and cardizem CD 120mg BID. -Average heart rate previous 12 hours noted to be 87. PACs and PVCs noted. -Recommend continuing with toprol and cardizem. -Cardiology will sign off. Re-consult as needed. -Cardiololgy will follow as outpatient. Follow up set up. (GENOVEVA) (4) Right ventricular dysfunction Current Visit: No Status: Chronic Per cardiology: -Last echo from February 2016 showed EF preserved 60%, severely dilated RV with moderate severe RV hypokinesis, mod-sev dilated RA. - BNP noted to be 794. -On Lasix 30 mg by mouth daily. -According to medical records patient is net negative 4065ml. - Clinically euvolemic on exam.(GENOVEVA) (5) Elevated troponin Current Visit: Yes Status: Acute Per Cardiology: -Troponin is mildly elevated, flat, adynamic with peak of 0.20. -Of note has history of mild troponin elevations. - Do not suspect non-STEMI, suspect to be in ischemia and setting of COPD and pneumonia. -Per review of medical records medical management has been recommended in the past. -No cardiac rehabilitation consult mackenzie at this time.(GENOVEVA) (6) CAD (coronary artery disease) Current Visit: Yes Status: Chronic Per Cardiology: -History of CAD with stenting to proximal RCA in 2009. -Had recent non-STEMI February with peak troponin of 2.20 -Medically managed, on aspirin, Plavix, statin, beta ivan, and long-acting nitrate. -Currently denies any chest pain. -Cardiology will follow as outpatient. (GENOVEVA) Qualifiers: Coronary Disease-Associated Artery/Lesion type: [place] artery [place] vs. transplanted heart: [place] heart Associated angina: without angina Qualified Code(s): I25.10 - Atherosclerotic heart disease of [place] coronary artery without angina pectoris Discussion w patient/family: The assessment and plan as outlined above was discussed with the patient who expressed understanding and agreement. All questions were answered. Thank you for involving us in the care of your patient. Please call with any questions. Patient seen and examined with NOLBERTO Amin Discussed and reviewed with . Subjective Principal diagnosis: pneumonia/COPD Interval history: Mr. Reeder is a 66 year old male with relevant past medical history stage IV COPD, right-sided CHF, history of CAD with stenting in 2009 and non-STEMI in February 2016 with medical management recommended, hypertension, Richardson's esophagus, GERD, history of CVA, nicotine abuse. He reports his shorts of breath is his baseline. He does report he wears oxygen 24/7. He denies any chest pain or palpitations. Does report some occasional right-sided neck and shoulder numbness at rest. He denies any recent fever, chills, nausea, vomiting, diarrhea. Reports nonproductive cough. (GENOVEVA) Objective Vital Signs, Last 4 Hours Temp Pulse Resp BP Pulse Ox 06/16/16 08:09 89 06/16/16 06:57 98.1 F 75 22 118/83 93 L 06/16/16 05:52 98.2 F 82 26 101/72 97 06/16/16 04:44 98.2 F 82 26 101/72 97 General: Conversant, Other (Conversational dyspnea noted) HEENT: Atraumatic, Normocephaly, Mucus Membranes Moist Neck: No JVD, Normal carotid pulses Cardiac: Reg Rate and Rhythm, Normal S1 and S2, No Murmur Lungs: Other (Diminished breath sounds throughout. ) Neuro: Alert and responsive, No focal deficits noted Abdomen: Soft, Non-Tender Skin: No rashes noted on visualized skin Musculoskeletal: No Chest Wall Tenderness Extremities: No Clubbing, No Cyanosis, No Edema, Normal Pulses Results 06/16/16 04:10 06/16/16 04:10 Lab Results Active Medications Acetaminophen (Tylenol) 650 mg PO Q6HR PRN PRN Reason: Mild Pain (1-3) Stop: 12/10/16 22:37 Last Admin: 06/15/16 16:17 Dose: 650 mg Albuterol Sulfate (Proventil Neb) 2.5 mg IH Q2H PRN PRN Reason: Shortness Of Breath/Wheezing Stop: 12/10/16 22:37 Last Admin: 06/14/16 16:14 Dose: 2.5 mg Aspirin (Aspirin) 81 mg PO DAILY [facility] Stop: 12/11/16 09:01 Last Admin: 06/15/16 08:32 Dose: 81 mg Benzonatate (Tessalon) 200 mg PO TID PRN PRN Reason: Cough Stop: 12/10/16 22:37 Last Admin: 06/15/16 02:12 Dose: 200 mg Clopidogrel Bisulfate (Plavix) 75 mg PO DAILY [facility] Stop: 12/11/16 09:01 Last Admin: 06/15/16 08:32 Dose: 75 mg Cyanocobalamin (Vitamin B12) 1,000 mcg PO DAILY [facility] Stop: 12/11/16 09:01 Last Admin: 06/15/16 08:32 Dose: 1,000 mcg Diltiazem HCl (Cardizem Cd) 120 mg PO BID [facility] Stop: 12/15/16 16:35 Last Admin: 06/15/16 21:02 Dose: 120 mg Docusate Sodium (Colace) 100 mg PO BID PRN PRN Reason: Constipation Stop: 12/10/16 22:37 Fluticasone Propionate (Flonase) 50 mcg NS BID LACEY PRN Reason: Protocol Stop: 12/11/16 09:01 Last Admin: 06/15/16 21:02 Dose: 50 mcg Folic Acid (Folic Acid) 1 mg PO DAILY [facility] Stop: 12/11/16 09:01 Last Admin: 06/15/16 08:32 Dose: 1 mg Furosemide (Lasix) 30 mg PO DAILY [facility] Stop: 12/13/16 09:01 Last Admin: 06/15/16 08:32 Dose: 30 mg Guaifenesin (Mucinex) 600 mg PO BID [facility] Stop: 12/11/16 09:01 Last Admin: 06/15/16 21:02 Dose: 600 mg Levofloxacin/Dextrose (Levaquin 750mg/150 Ml) 750 mg in 150 mls @ 100 mls/hr IVPB Q24H LACEY PRN Reason: Protocol Stop: 12/12/16 12:01 Last Infusion: 06/15/16 13:48 Dose: Infused Isosorbide Mononitrate (Imdur) 60 mg PO DAILY [facility] Stop: 12/13/16 09:01 Last Admin: 06/15/16 06:07 Dose: Not Given Levalbuterol HCl (Xopenex) 0.63 mg IH [id number] [facility] Stop: 12/14/16 10:01 Last Admin: 06/16/16 04:27 Dose: 0.63 mg Loratadine (Claritin) 10 mg PO DAILY [facility] Stop: 12/11/16 09:01 Last Admin: 06/15/16 08:37 Dose: 10 mg Lorazepam (Ativan) 0.5 mg PO HS PRN PRN Reason: Anxiety Stop: 12/10/16 22:48 Lorazepam (Ativan) 0.5 mg PO BID [facility] Stop: 12/11/16 09:01 Last Admin: 06/15/16 21:02 Dose: 0.5 mg Metoprolol Succinate (Toprol Xl) 50 mg PO DAILY [facility] Stop: 12/16/16 09:01 Morphine Sulfate (Morphine Sulfate) 2 mg IVP Q4HR PRN PRN Reason: Severe Pain (7-10) Stop: 12/10/16 22:37 Naloxone HCl (Narcan) 0.4 mg IVP Q2MIN PRN PRN Reason: Opioid Reversal Stop: 12/10/16 22:37 Nicotine (Nicoderm) 21 mg TD DAILY PRN PRN Reason: Nicotine Cravings Stop: 12/10/16 22:46 Nitroglycerin (Nitroglycerin) 0.4 mg SL Q5MIN PRN PRN Reason: Chest Pain Stop: 12/10/16 22:50 Omeprazole (Prilosec) 20 mg PO DAILY@0730 [facility] PRN Reason: Protocol Stop: 12/14/16 07:31 Last Admin: 06/15/16 06:13 Dose: 20 mg Oxycodone HCl (Roxicodone) 10 mg PO Q6HR PRN PRN Reason: Moderate Pain (4-6) Stop: 12/10/16 22:37 Pharmacy Profile Note (Patient Taking Own Medication) 1 each NS BID [facility] Stop: 12/11/16 09:01 Last Admin: 06/15/16 21:03 Dose: Not Given Prednisone (Prednisone) 40 mg PO BIDWM LACEY Stop: 12/14/16 09:59 Last Admin: 06/15/16 16:18 Dose: 40 mg Promethazine HCl (Phenergan) 12.5 mg IVP Q6HR PRN PRN Reason: Nausea And Vomiting Stop: 12/10/16 22:37 Simvastatin (Zocor) 10 mg PO HS LACEY PRN Reason: Protocol Stop: 12/11/16 21:01 Last Admin: 06/15/16 21:02 Dose: 10 mg Laboratory Tests 06/16/16 06/16/16 04:10 04:10 WBC 14.2 H Hgb 9.6 L Potassium 4.2 - Imaging and Cardiology Chest Xray: report reviewed - EKG Interpretation EKG results cardiology: other (Telemetry reviewed with average HR previous 12 hours 87, sinus rhythm. PACs noted and occasional PVCs noted.) - VTE Documentation of Mechanical Device: Graduated compression elastic hosiery Consult Discharge Plan - Plan [facility]errals: [facility]Primary Care Provider] - (PT IS GOING BACK TO [facility] NO PCP APPOINTMENT NEEDED,)
[2016-06-16] MEDS: Isosorbide MONOnitrate (24 HR) 60 MG TAB.ER.24H PO SCH (08:53)
[2016-06-16] MEDS: predniSONE 20 MG TABLET PO SCH ×2 (08:53→17:02)
[2016-06-16] MEDS: Cyanocobalamin (B-12) 1,000 MCG TABLET PO SCH (08:53)
[2016-06-16] MEDS: Metoprolol XL (24 HR) Succ 50 MG TAB.ER.24H PO SCH (08:53)
[2016-06-16] MEDS: Diltiazem CD (24hr) 120 MG CAPSULE PO SCH ×2 (08:53→19:45)
[2016-06-16] MEDS: Aspirin 81 MG TAB.CHEW PO SCH (08:54)
[2016-06-16] MEDS: Furosemide 20 MG TABLET PO SCH (08:54)
[2016-06-16] MEDS: Folic Acid 1 MG TABLET PO SCH (08:54)
[2016-06-16] MEDS: Loratadine 10 MG TABLET PO SCH (08:54)
[2016-06-16] MEDS: IPRATROPIUM BROMIDE NS SCH ×2 (08:55→19:47)
[2016-06-16] MEDS: Fluticasone Propionate Nasal 50 MCG/SPRAY BOTTLE NS SCH ×2 (08:55→19:48)
[2016-06-16] MEDS: *HR* LORazepam 0.5 MG TABLET PO SCH ×2 (08:55→19:46)
[2016-06-16] MEDS: Levofloxacin 750 MG/150 ML 750 MG/150 ML BAG IVPB SCH (13:11)
--- NOTE | 2016-06-16 16:24 | Electrocardiograph Report ---
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
--- NOTE | 2016-06-16 18:24 | Internal Med Progress Note ---
Date of Encounter: 06/16/16 Time of Encounter: 13:25 - Assessment and plan (1) Acute exacerbation of chronic obstructive pulmonary disease (COPD) Current Visit: Yes Status: Acute (2) CHF (congestive heart failure) Current Visit: Yes Status: Chronic Qualifiers: Congestive heart failure type: diastolic Congestive heart failure chronicity: chronic Qualified Code(s): I50.32 - Chronic diastolic (congestive ) heart failure (3) Elevated troponin Current Visit: Yes Status: Acute (4) CAD (coronary artery disease) Current Visit: Yes Status: Chronic Qualifiers: Coronary Disease-Associated Artery/Lesion type: [place] artery [place] vs. transplanted heart: [place] heart Associated angina: without angina Qualified Code(s): I25.10 - Atherosclerotic heart disease of [place] coronary artery without angina pectoris (5) HCAP (healthcare-associated pneumonia) Current Visit: Yes Status: Acute (6) Hypothyroidism Current Visit: Yes Status: Chronic Qualifiers: Hypothyroidism type: acquired Qualified Code(s): E03.9 - Hypothyroidism, unspecified (7) Acute on chronic respiratory failure with hypoxia and hypercapnia Current Visit: Yes Status: Acute (8) Non-ST elevation myocardial infarction (NSTEMI) due to mismatch of myocardial oxygen supply and demand Current Visit: Yes Status: Acute (9) Anxiety Current Visit: Yes Status: Chronic Assessment and plan: 66-year-old male with past medical history of COPD, CHF, anxiety, admitted to the hospital with acute shortness of breath. Chest x-ray on admission shows bilateral infiltrates concerning for pneumonia. # Healthcare associated pneumonia: she was recently treated at [facility] for pneumonia. He is currently on treatment with broad-spectrum IV antibiotics for HCAP. Blood cultures negative. Respiratory viral panel negative. Can switch to PO Levaquin tomorrow if remains clinically stable. # Acute exacerbations of COPD: in setting of pneumonia, improving clinically. Will need to be discharged home on inhaled corticosteroids and bronchodilators. Currently on prednisone 40 mg BID, taper off as tolerated. # SVT: overnight events noted, on BB and started on PO cardizem better controlled # Chronic compensated diastolic heart failure: History of cardiomyopathy with echo from 2016 showing ejection fraction of 60% EF, right ventricular dysfunction and pressure overload. # Right heart failure: echo showing severe) regular dysfunction and pressure overload related to COPD and cor pulmonale, on diuresis # Elevated troponin: likely in setting of demand ischemia. EKG negative for any acute ST T wave changes. # Essential hypertension: continue home medications # History of coronary artery disease: acute events, continue home medications. Santo inhibitor was on hold in setting of hyperkalemia, restart as tolerated. On metoprolol 75 mg daily, aspirin, Plavix, Santo inhibitor, statin, nitrates. # Anxiety disorder: on PRN benzodiazepine # DVt prophylaxis - Time Spent With Patient 25 - 35 minutes - Subjective Interval history: Patient seen and examined with site. Events from overnight noted. His heart rate has been elevated as high as 180's overnight. Patient was started on cradizem drip overnight with improvement in heart rate. He denies anyc hest pain. reports mild SOB, denies any other complaints. He remains of 3-4 l of oxygen. - Constitutional Vitals: Temp Pulse Resp BP Pulse Ox 98.0 F 95 18 113/56 95 06/16/16 17:04 06/16/16 17:04 06/16/16 17:04 06/16/16 17:04 06/16/16 17:04 General appearance: Present: cachectic, A&O X 3, answers questions appropriately Internal Medicine: Result - Labs CBC & Chem 7: 06/17/16 10:05 06/17/16 10:05 Labs: Short CBC 06/16/16 Range/Units 04:10 WBC 14.2 H (4.3-11.1) K/mcL Hgb 9.6 L (12.9-16.9) g/dL Hct 30.7 L (37.5-50.1) % Plt Count 252 (140-400) K/mcL Neutrophils # 12.5 H (1.6-8.9) K/mcL BMP 06/16/16 04:10 Sodium 134 L Potassium 4.2 Chloride 94 L Carbon Dioxide 34 H BUN 38 H D Creatinine 0.87 Glucose 133 H Calcium 8.7 Cardiac Enzymes 06/16/16 Range/Units 10:55 Troponin I 0.13 H* (0-0.03) ng/mL - ABG Interpretation ABG results: ABG ABG pH 7.38 pH Units (7.32-7.45) 06/11/16 12:23 ABG pCO2 59 mmHg (35-45) H 06/11/16 12:23 ABG pO2 76 mmHg (85-104) L 06/11/16 12:23 ABG O2 Saturation 95 % (95-98) 06/11/16 12:23 PT/INR, D-dimer PT 11.3 Seconds (9.4-12.1) 06/14/16 05:15 - VTE Documentation of Mechanical Device: Graduated compression elastic hosiery Consult Discharge Plan - Plan Referrals: Francia Olson, THEORETICAL PHYSICIST [Partnered Physician] - 07/06/16 2:30 pm [facility]Primary Care Provider[facility] - (PT IS GOING BACK TO [facility] NO PCP APPOINTMENT NEEDED,) Prescriptions: Diltiazem CD (24hr) [Cardizem CD] 120 mg PO BID #30 cap.er.24h PredniSONE 40 mg PO DAILY 3 Days
[2016-06-17] MEDS: Levalbuterol Neb 0.63 MG/3 ML IH SCH ×2 (03:51→10:18)
[2016-06-17] MEDS: Benzonatate 100 MG CAPSULE PO PRN (04:13)
[2016-06-17] MEDS: predniSONE 20 MG TABLET PO SCH (07:59)
[2016-06-17] MEDS: Furosemide 20 MG TABLET PO SCH (08:51)
[2016-06-17] MEDS: Aspirin 81 MG TAB.CHEW PO SCH (08:51)
[2016-06-17] MEDS: Isosorbide MONOnitrate (24 HR) 60 MG TAB.ER.24H PO SCH (08:52)
[2016-06-17] MEDS: Metoprolol XL (24 HR) Succ 50 MG TAB.ER.24H PO SCH (08:52)
[2016-06-17] MEDS: *HR* LORazepam 0.5 MG TABLET PO SCH (08:52)
[2016-06-17] MEDS: Cyanocobalamin (B-12) 1,000 MCG TABLET PO SCH (08:52)
[2016-06-17] MEDS: Diltiazem CD (24hr) 120 MG CAPSULE PO SCH (08:52)
[2016-06-17] MEDS: Loratadine 10 MG TABLET PO SCH (08:53)
[2016-06-17] MEDS: IPRATROPIUM BROMIDE NS SCH (09:01)
[2016-06-17] MEDS: Folic Acid 1 MG TABLET PO SCH (09:05)
[2016-06-17] MEDS: Fluticasone Propionate Nasal 50 MCG/SPRAY BOTTLE NS SCH (09:12)
[2016-06-17 10:13] LABS: Basophils % 0.1 %; Hematocrit 33.1 % (37.5-50.1); Hemoglobin 10.2 g/dL (12.9-16.9); Immature Granulocytes % 2.8 % (0-4); Lymphocytes # 0.4 K/mcL (0.6-4.6); Lymphocytes % 2.5 %; Mean Corpuscular HGB Conc 30.8 g/dL (31.6-35.5); Mean Corpuscular Hemoglobin 28.2 pg (28.0-33.3); Mean Corpuscular Volume 91.4 fL (83.0-100.0); Mean Platelet Volume 9.1 fL (9.4-12.4); Monocytes % 6.3 %; Neutrophils # 14.5 K/mcL (1.6-8.9); Platelet Count 258 K/mcL (140-400); Red Blood Count 3.62 M/mcL (4.19-5.50); Red Cell Distribution Width 17.6 % (11.5-14.5); Segmented Neutrophils % 88.3 %
[2016-06-17 10:27] LABS: BUN/Creatinine Ratio 42 (6-26); Blood Urea Nitrogen 32 mg/dL (8-26); Carbon Dioxide 34 mEq/L (19-29); Chloride 96 mEq/L (98-109); Glucose 119 mg/dL (70-99); Osmolality,Calculated 290 (280-300); Potassium 4.2 mEq/L (3.5-4.5); Sodium 136 mEq/L (136-145); eGFR For African Americans > 60 (> 60); eGFR For Non-African Americans > 60 (> 60)
[2016-06-17 11:15] VITALS: BP 103/67
[2016-06-17] MEDS: Levofloxacin 750 MG/150 ML 750 MG/150 ML BAG IVPB SCH (11:33)
--- NOTE | 2016-06-17 13:22 | Discharge Summary ---
Date of Encounter: 06/17/16 Time of Encounter: 13:17 - Discharge Diagnosis (1) Acute exacerbation of chronic obstructive pulmonary disease (COPD) Priority: Primary Status: Acute (2) CHF (congestive heart failure) Priority: Secondary Status: Chronic Qualifiers: Congestive heart failure type: diastolic Congestive heart failure chronicity: chronic Qualified Code(s): I50.32 - Chronic diastolic (congestive ) heart failure (3) Elevated troponin Priority: Secondary Status: Acute (4) CAD (coronary artery disease) Priority: Secondary Status: Chronic Qualifiers: Coronary Disease-Associated Artery/Lesion type: [place] artery [place] vs. transplanted heart: [place] heart Associated angina: without angina Qualified Code(s): I25.10 - Atherosclerotic heart disease of [place] coronary artery without angina pectoris (5) HCAP (healthcare-associated pneumonia) Priority: Primary Status: Acute (6) Hypothyroidism Priority: Secondary Status: Chronic Qualifiers: Hypothyroidism type: acquired Qualified Code(s): E03.9 - Hypothyroidism, unspecified (7) Sinus tachycardia Priority: Secondary Status: Resolved (8) Acute on chronic respiratory failure with hypoxia and hypercapnia Priority: Primary Status: Acute (9) Non-ST elevation myocardial infarction (NSTEMI) due to mismatch of myocardial oxygen supply and demand Priority: Secondary Status: Acute (10) Anxiety Priority: Secondary Status: Chronic - Discharge Medications Prescriptions: Diltiazem CD (24hr) [Cardizem CD] 120 mg PO BID #30 cap.er.24h PredniSONE 40 mg PO DAILY 3 Days Home Medications: Aspirin 81 mg PO DAILY 12/12/14 [History] Clopidogrel [Plavix] 75 mg PO DAILY 12/12/14 [History] Cyanocobalamin (B-12) [Vitamin B12] 1,000 mcg PO DAILY #30 tablet 03/14/16 [Rx] Folic Acid 1 mg PO DAILY #30 tablet 03/14/16 [Rx] Acetaminophen [Tylenol] 650 mg PO Q6HR PRN 04/26/16 [History] Albuterol Neb [Proventil Neb] 2.5 mg IH QID PRN 04/26/16 [History] Budesonide/Formoterol 160/4.5 [Symbicort 160/4.5] 2 puff IH BIDR 04/26/16 [ History] Cetirizine HCl [Zyrtec] 10 mg PO DAILY 04/26/16 [History] Fluticasone Propionate Nasal [Flonase] 50 mcg NS BID 04/26/16 [History] Furosemide [Lasix] 30 mg PO DAILY 04/26/16 [History] Ipratropium [place] 1 spray NS BID 04/26/16 [History] Ipratropium/Albuterol Neb [Duoneb] 3 ml IH Q6H PRN 04/26/16 [History] Isosorbide MONOnitrate (24 HR) [Imdur] 60 mg PO DAILY 04/26/16 [History] LORazepam [Ativan] 0.5 mg PO BID 04/26/16 [History] LORazepam [Ativan] 0.5 mg PO HS PRN 04/26/16 [History] Loratadine [Allergy Relief] 10 mg PO DAILY 04/26/16 [History] Phenylephrine HCl/Hard Fat [Shayy-Med] 1 each RC HS PRN 04/26/16 [History] Ranitidine HCl [Zantac] 150 mg PO BID 04/26/16 [History] Simvastatin [Zocor] 40 mg PO HS 04/26/16 [History] Losartan [Cozaar] 25 mg PO DAILY 06/10/16 [History] Metoprolol XL (24 HR) Succ [Toprol Xl] 50 mg PO DAILY 06/10/16 [History] Diltiazem CD (24hr) [Cardizem CD] 120 mg PO BID #30 cap.er.24h 06/17/16 [Rx] PredniSONE 40 mg PO DAILY 3 Days 06/17/16 [Rx] Allergies/Adverse Reactions: Allergies Tetracycline Allergy (Verified 03/10/16 06:33) Hives codeine Adverse Reaction (Verified 03/10/16 06:33) Headache Procedures/tests Complete & Pending: Procedures Performed prior 72 hours Category Date Time Status ECG 12 lead ECG [ECG] Routine Y 06/15/16 10:24 Completed ECG 12 lead ECG [ECG] Routine Y 06/16/16 10:31 Completed ECG 12 lead ECG [ECG] Routine Y 06/16/16 14:07 Completed Date of admission: 06/10/16 22:51 Primary care physician: PCP LAURA Consults: 06/15/16 08:22 Consult to Cardiology [CONS] Routine Comment: Consulting Provider: Cardiology Sofi Reason for Consult: SVT Time Notified: 08:22 Call Completed: No 06/15/16 09:16 Consult to Invasive Line Access Team [CONS] Routine Reason for Consult: limited vascular access Line Type: EPIV Discharging clinician: Maria C Cline - Patient Status Disposition: Transfer Inpatient Rehab Fac Condition: Fair Functional capacity at discharge: uses cane/walker Overall status at discharge: patient is back to baseline - Discharge Instructions Follow Up With: Francia Olson ALARM FIELD TECHNICIAN [Partnered Physician] - 07/06/16 2:30 pm [facility] Care Provider[facility] - ([facility] IS GOING [facility] TO [facility] NO PCP APPOINTMENT NEEDED,) - Diet and Activity Activity: increase activity as tolerated Interval History: 66-year-old male with past medical history of COPD, CHF, anxiety, admitted to the hospital with acute shortness of breath. Chest x-ray on admission shows bilateral infiltrates concerning for pneumonia. He was treated on IV Levaquin with improvement in his symptoms. Blood cultures have remained positive. He is discharged on Levaquin Po to be continued for 3 more days. Patient has h/o COPD with exacerbation in setting of pneumonia whivh has currently improved. He is on prednisone to be tapered off Patient noticed to have episodes of SVT during stay for which the dose of BB was increased and he was started on cardizem per [facility] with better control. Patient had echo on this admission showing right ventricular failure in setting of COPD / cor pulmonale for which he is continued on lasix PO. Patient c/o chest pain during stay for which ischemic work up was done which was neagtive adn was evelauted by cardiologyr ecommended to continue current medical management. On aspirin, BB, statin, nitrates Patient is continued on his home meds for other chronic medical problems. ACEi were held as his potassium was high which is currently restarted. Patient clinicially better and is d/c home. [facility] Hemodynamically stable at the time of d/c. Hospital course: Mr. Reeder is a 66 year old male - Time Spent with Patient Total time spent providing and/or coordinating discharge services: Greater than 30 minutes - Constitutional Vitals: Temp Pulse Resp BP Pulse Ox 97.9 F 82 20 103/67 100 06/17/16 11:12 06/17/16 11:36 06/17/16 11:12 06/17/16 11:12 06/17/16 11:12 General appearance: Present: cachectic, A&O X 3, answers questions appropriately - Head Head exam: Present: atraumatic, normocephalic - Eye Eye exam: Present: PERRL, conjuntiva pink, sclera anicteric Pupils: Present: PERRL - Neck Neck exam general surgery: Present: supple, trachea midline. Absent: lymphadenopathy - Respiratory Respiratory exam: Present: CTAB. Absent: accessory muscle use, rales, rhonchi, wheezes - Cardiovascular Cardiovascular exam: Present: RRR, +S1, +S2. Absent: diastolic murmur, gallop, rubs, systolic murmur - GI/Abdominal GI/Abdominal exam: Present: normal bowel sounds, soft, no peritoneal signs. Absent: distended, tenderness - Extremities Exam Extremities exam: Present: warm, radial pulses palpable and symetrical. Absent : calf tenderness, cyanotic, pedal edema - Neurological Exam Neurological exam: Present: CN II-XII intact, oriented X3, no focal deficits. Absent: pronater drift, facial droop, speech deficit - Skin Skin exam: Present: dry, intact - VTE Documentation of Mechanical Device: Graduated compression elastic hosiery
--- NOTE | 2016-06-17 19:25 | Electrocardiograph Report ---
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
--- NOTE | 2016-06-19 07:31 | Electrocardiograph Report ---
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
== END 2016-06-17 14:20 | DRG 871 ==
LOC: 2NNU 14:58 → EMEROO 14:58 → 2NNU 21:04 → SUATTDRO 22:51
PROVIDERS: ADMIT Internal Medicine; ATTEND Internal Medicine